=== PATIENT | female | born 1975 | race Caucasian/White ===

== ENCOUNTER 2016-04-30 15:49 | Emergency (ER) | payer OTHER ==
[2016-04-30 16:06] VITALS: RESP 18
[2016-04-30] MEDS ORDERED: METOCLOPRAMIDE 5 MG/ML 2 ML VIAL IVP STA (16:39)
[2016-04-30] MEDS ORDERED: SODIUM CHLORIDE 0.9% 1,000 ML IV STA (16:39)
[2016-04-30] MEDS ORDERED: ACETAMINOPHEN IV (For NPO) 1,000 MG in SALINE 100 100ML.BAG IVPB STA (16:39)
--- NOTE | 2016-04-30 16:41 | ED ---
General Adult HPI - General Chief complaint: Vaginal Bleeding Stated complaint: poss miscarriage/7.5 wks Time Seen by Provider: 04/30/16 16:20 Source: patient, RN notes reviewed Mode of arrival: ambulatory Limitations: no limitations - History of Present Illness Initial comments: Patient is a 40-year-old female who is approximately 7 weeks , who presents emergency room today with a chief complaint of vaginal bleeding that began approximately 3 hours ago. Patient states that she began having some cramping here in the emergency room. Patient admits that she's felt nauseated. She denies any other complaints or associated symptoms. Patient denies any recent fever, chills, shortness of breath, chest pain, back pain, abdominal pain , nausea or vomiting, numbness or tingling, dysuria or hematuria, constipation or diarrhea, headaches or visual changes, or any other complaints. - Related Data Home Medications Medication Instructions Recorded Confirmed glipiZIDE [Glucotrol] 10 mg PO TID 09/01/13 04/30/16 Acetaminophen Tab [Tylenol Tab] 650 mg PO Q4H PRN 04/30/16 04/30/16 Allergies Allergy/AdvReac Type Severity Reaction Status Date / Time clarithromycin [From Biaxin] Allergy Unknown Verified 04/30/16 16:12 Review of Systems ROS Statement: Those systems with pertinent positive or pertinent negative responses have been documented in the HPI. ROS Other: All systems not noted in ROS Statement are negative. Past Medical History Past Medical History: Diabetes Mellitus History of Any Multi-Drug Resistant Organisms: None Reported Past Surgical History: Cholecystectomy Past Psychological History: Anxiety, Bipolar, Depression Smoking Status: Current every day smoker Past Alcohol Use History: None Reported Past Drug Use History: None Reported General Exam - General Exam Comments Initial Comments: General: The patient is awake and alert, in no distress, and does not appear acutely ill. Eye: Pupils are equal, round and reactive to light, extra-ocular movements are intact. No nystagmus. There is normal conjunctiva bilaterally. No signs of icterus. Ears, nose, mouth and throat: There are moist mucous membranes and no oral lesions. Neck: The neck is supple, there is no tenderness or JVD. Cardiovascular: There is a regular rate and rhythm. No murmur, rub or gallop is appreciated. Respiratory: Lungs are clear to auscultation, respirations are non-labored, breath sounds are equal. No wheezes, stridor, rales, or rhonchi. Gastrointestinal: Soft, non-distended, non-tender abdomen without masses or organomegaly noted. There is no rebound or guarding present. No CVA tenderness. Bowel sounds are unremarkable. Musculoskeletal: Normal ROM, no tenderness. Strength 5/5. Sensation intact. Pulses equal bilaterally 2+. Neurological: A&O x 3. CN II-XII intact, There are no obvious motor or sensory deficits. Coordination appears grossly intact. Speech is normal. Skin: Skin is warm and dry and no rashes or lesions are noted. Psychiatric: Cooperative, appropriate mood & affect, normal judgment. Limitations: no limitations Course Vital Signs 04/30/16 16:03 Temperature 98.2 F Pulse Rate 111 H Respiratory 18 Rate Blood Pressure 140/70 O2 Sat by Pulse 98 Oximetry Medical Decision Making - Medical Decision Making Patient reexamined at this time shows no signs acute distress. Her labs been reviewed. Rh+. Beta hCG greater than 13,000. Patient's sugar 202. Is a diabetic. Patient's ultrasound reviewed shows no evidence for IUP or extrauterine gestation at this time. Patient admits that she had a previous ultrasound performed at a clinic that did show IUP approximately 2 weeks ago. Was discussed about possibilities of miscarriage at this time. Was discussed about pelvic exam. Patient is advised to follow up the [facility] over the next 2 days. Advised to return to emergency room if there is any lightheadedness dizziness or increased pain or cramping. Patient will be discharged home with a prescription for repeat beta hCG to be obtained in 2 days. Patient advised return for any other concerns. Patient states understanding and is in agreement. - Lab Data Result diagrams: 04/30/16 16:43 04/30/16 16:43 Lab Results 04/30/16 04/30/16 04/30/16 Range/Units 16:43 16:43 16:43 WBC 11.7 H (3.8-10.6) k/uL RBC 5.88 H (3.80-5.40) m/uL Hgb 16.7 H (11.4-16.0) gm/dL Hct 50.5 H (34.0-46.0) % MCV 85.9 (80.0-100.0) fL MCH 28.3 (25.0-35.0) pg MCHC 33.0 (31.0-37.0) g/dL RDW 12.9 (11.5-15.5) % Plt Count 250 (150-450) k/uL Neutrophils % 64 % Lymphocytes % 24 % Monocytes % 6 % Eosinophils % 4 % Basophils % 2 % Neutrophils # 7.4 (1.3-7.7) k/uL Lymphocytes # 2.8 (1.0-4.8) k/uL Monocytes # 0.7 (0-1.0) k/uL Eosinophils # 0.4 (0-0.7) k/uL Basophils # 0.2 (0-0.2) k/uL Sodium 139 (137-145) mmol/L Potassium 4.5 (3.5-5.1) mmol/L Chloride 102 (98-107) mmol/L Carbon Dioxide 19 L (22-30) mmol/L Anion Gap 18 mmol/L BUN 20 H (7-17) mg/dL Creatinine 0.50 L (0.52-1.04) mg/dL Est GFR (MDRD) Af Amer >60 (>60 ml/min/1.73 sqM) Est GFR (MDRD) Non-Af >60 (>60 ml/min/1.73 sqM) Glucose 202 H (74-99) mg/dL Calcium 9.5 (8.4-10.2) mg/dL Total Bilirubin 0.7 (0.2-1.3) mg/dL AST 31 (14-36) U/L ALT 49 (9-52) U/L Alkaline Phosphatase 97 (38-126) U/L Total Protein 8.0 (6.3-8.2) g/dL Albumin 4.5 (3.5-5.0) g/dL HCG, Quant 29555.6 mIU/mL Urine Color Urine Appearance (Clear) Urine pH (5.0-8.0) Ur Specific [place] (1.001-1.035) Urine Protein (Negative) Urine Glucose (UA) (Negative) Urine Ketones (Negative) Urine Blood (Negative) Urine Nitrate (Negative) Urine Bilirubin (Negative) Urine Urobilinogen (<2.0) mg/dL Ur Leukocyte Esterase (Negative) Urine RBC (0-5) /hpf Urine WBC (0-5) /hpf Ur Squamous Epith Cells (0-4) /hpf Urine Bacteria (None) /hpf Blood Type O Positive Blood Type Recheck No 04/30/16 Range/Units 16:43 WBC (3.8-10.6) k/uL RBC (3.80-5.40) m/uL Hgb (11.4-16.0) gm/dL Hct (34.0-46.0) % MCV (80.0-100.0) fL MCH (25.0-35.0) pg MCHC (31.0-37.0) g/dL RDW (11.5-15.5) % Plt Count (150-450) k/uL Neutrophils % % Lymphocytes % % Monocytes % % Eosinophils % % Basophils % % Neutrophils # (1.3-7.7) k/uL Lymphocytes # (1.0-4.8) k/uL Monocytes # (0-1.0) k/uL Eosinophils # (0-0.7) k/uL Basophils # (0-0.2) k/uL Sodium (137-145) mmol/L Potassium (3.5-5.1) mmol/L Chloride (98-107) mmol/L Carbon Dioxide (22-30) mmol/L Anion Gap mmol/L BUN (7-17) mg/dL Creatinine (0.52-1.04) mg/dL Est GFR (MDRD) Af Amer (>60 ml/min/1.73 sqM) Est GFR (MDRD) Non-Af (>60 ml/min/1.73 sqM) Glucose (74-99) mg/dL Calcium (8.4-10.2) mg/dL Total Bilirubin (0.2-1.3) mg/dL AST (14-36) U/L ALT (9-52) U/L Alkaline Phosphatase (38-126) U/L Total Protein (6.3-8.2) g/dL Albumin (3.5-5.0) g/dL HCG, Quant mIU/mL Urine Color Light Yellow Urine Appearance Clear (Clear) Urine pH 6.0 (5.0-8.0) Ur Specific [place] 1.004 (1.001-1.035) Urine Protein Trace H (Negative) Urine Glucose (UA) Negative (Negative) Urine Ketones Negative (Negative) Urine Blood Large H (Negative) Urine Nitrate Negative (Negative) Urine Bilirubin Negative (Negative) Urine Urobilinogen <2.0 (<2.0) mg/dL Ur Leukocyte Esterase Negative (Negative) Urine RBC 13 H (0-5) /hpf Urine WBC 2 (0-5) /hpf Ur Squamous Epith Cells <1 (0-4) /hpf Urine Bacteria Rare H (None) /hpf Blood Type Blood Type Recheck Disposition Clinical Impression: Threatened Disposition: HOME SELF-CARE Condition: Good Instructions: Threatened Miscarriage (ED) Additional Instructions: Please follow-up with [facility] over the next 1-2 days. Please have repeat lab in 2 days as discussed. Please return to emergency room if the symptoms increase or worsen or for any other concerns. Referrals: Mateus Curtis DO [Primary Care Provider] - 1-2 days Time of Disposition: 18:40
[2016-04-30 16:57] LABS: Basophils # (A) 0.2 k/uL (0-0.2); Basophils % (A) 2 %; CH 30.1; CHCM 35.2; Eosinophils # (A) 0.4 k/uL (0-0.7); Eosinophils % (A) 4 %; HCT 50.5 % (34.0-46.0); HDW 2.56; HGB 16.7 gm/dL (11.4-16.0); Luc # (Auto) 0.15; Luc % (Auto) 1; Lymphocytes # (A) 2.8 k/uL (1.0-4.8); Lymphocytes % (A) 24 %; MCH 28.3 pg (25.0-35.0); MCV 85.9 fL (80.0-100.0); Mean Platelet Volume 7.7; Monocytes # (A) 0.7 k/uL (0-1.0); Monocytes % (A) 6 %; Neutrophils # (A) 7.4 k/uL (1.3-7.7); Neutrophils % (A) 64 %; RBC 5.88 m/uL (3.80-5.40); RDW 12.9 % (11.5-15.5); WBC 11.7 k/uL (3.8-10.6); WBC (Perox) 12.13
[2016-04-30 17:06] LABS: Appearance,Urine Clear (Clear); Bacteria,Urine Rare /hpf; Bilirubin,Urine Negative (Negative); Glucose,Urine (UA) Negative (Negative); Ketones,Urine Negative (Negative); Leukocyte Esterase,Urine Negative (Negative); Nitrite,Urine Negative (Negative); Particle Count 1895; Protein,Urine Trace (Negative); RBC,Urine 13 /hpf (0-5); Specific Gravity,Urine 1.004 (1.001-1.035); Squamous Epithelial Cell,Urine <1 /hpf (0-4); UA Billing (MACRO vs. MICRO) MICRO; Urobilinogen,Urine <2.0 mg/dL (<2.0); WBC,Urine 2 /hpf (0-5)
[2016-04-30 17:08] LABS: ALT 49 U/L (9-52); AST 31 U/L (14-36); Alkaline Phosphatase 97 U/L (38-126); Anion Gap 18 mmol/L; Blood Urea Nitrogen 20 mg/dL (7-17); Calcium 9.5 mg/dL (8.4-10.2); Carbon Dioxide 19 mmol/L (22-30); Chloride 102 mmol/L (98-107); Glucose 202 mg/dL (74-99); Non-African American GFR(MDRD) >60 (>60 ml/min/1.73 sqM); Potassium 4.5 mmol/L (3.5-5.1); Sodium 139 mmol/L (137-145); Total Bilirubin 0.7 mg/dL (0.2-1.3)
[2016-04-30 17:22] LABS: HCG,Quantitative Serum 13560.6 mIU/mL
--- NOTE | 2016-04-30 18:15 | US ---
EXAMINATION TYPE: US OB <=14 wks transvag DATE OF EXAM: 04/30/2016 5:58 PM COMPARISON: NONE CLINICAL HISTORY: Pain. Bleeding. Patient states she had an early ultrasound at another facility EXAM PERFORMED: US OB <=14 wks transvag EXAM MEASUREMENTS: GESTATIONAL AGE / DATING Physician Established: Not established Dates by LMP: Unknown Dates by First Scan: No previous at this facility Dates by Current Scan for: No IUP visualized MATERNAL ANATOMY Uterus: 9.6 x 4.7 x 5.9 cm Right Ovary: Not visualized on this exam due to large amount of overlying bowel gas. Attempted multip le times to visualize, and patient asked exam due end due to pain. Left Ovary: 2.0 x 1.6 x 1.8 cm Post CDS / Adnexa: Large amount of overlying bowel gas visualized Presence of free fluid: No Presence of corpus luteal cyst: Not visualized on this exam Presence of subchorionic bleed: No Date of LMP: Unknown Beta HcG (if available): 13,560 TECHNOLOGIST IMPRESSION: No IUP visualized on this exam. The endometrium appears thickened and heter ogeneous. There is an anechoic area visualized within the cervix, possible nabothian cyst IMPRESSION: 1. We have not identified intrauterine or extrauterine gestation at this time. Short-term follow-up + /- elevated hCGs would be suggested. 2. Complex nabothian cyst in the posterior lip of the cervix.
[2016-04-30 18:58] VITALS: BP 151/82; PULSE 94; TEMP 97
== END 2016-04-30 18:58 | disposition home or self-care (01) ==
LOC: EC 15:49
DX: O20.0 Threatened abortion (principal); Z3A.01 Less than 8 weeks gestation of pregnancy; E11.9 Type 2 diabetes mellitus without complications; Z79.84 Long term (current) use of oral hypoglycemic drugs; Z88.1 Allergy status to other antibiotic agents; O99.331 Smoking (tobacco) complicating pregnancy, first trimester
CPT/HCPCS: 96374; 99284; 36415; 86900; 86901; 80053; 85025; 81001; 84702; 76801; 76817; J2765; J0131

== ENCOUNTER 2016-05-01 07:47 | Inpatient (IN) | payer OTHER ==
--- NOTE | 2016-05-01 08:54 | ED ---
Female Urogenital HPI - General Chief complaint: Vaginal Bleeding Stated complaint: BLEEDING POSS MISCARRAGE Time Seen by Provider: 05/01/16 08:29 Source: patient, RN notes reviewed Mode of arrival: wheelchair Limitations: no limitations - History of Present Illness Initial comments: This is a 40-year-old female presents emergency Department chief complaint lower abdominal pain, vaginal bleeding. Patient states she was seen here yesterday for similar symptoms. Patient states that she is . Patient states that she would be 7 weeks 4 days. Patient is A0. Patient does not have a current [employer] 1 [employer] 5 TE[employer]. Patient states that she is passing large clots and increased bleeding. Patient had an ultrasound yesterday which showed no IUP but a beta Quant of greater than 13,000. Patient did not have a pelvic exam. Patient denies any vomiting, diarrhea Justin patient. She did admit to some nausea. Denies fever or chills. - Related Data Home Medications Medication Instructions Recorded Confirmed glipiZIDE [Glucotrol] 10 mg PO TID 09/01/13 05/01/16 Acetaminophen Tab [Tylenol Tab] 650 mg PO Q4H PRN 04/30/16 05/01/16 Citalopram Hydrobromide 20 mg PO DAILY 05/01/16 05/01/16 [Citalopram HBr] Allergies Allergy/AdvReac Type Severity Reaction Status Date / Time clarithromycin [From Biaxin] Allergy Unknown Verified 05/01/16 08:04 Review of Systems ROS Statement: Those systems with pertinent positive or pertinent negative responses have been documented in the HPI. ROS Other: All systems not noted in ROS Statement are negative. Past Medical History Past Medical History: Diabetes Mellitus History of Any Multi-Drug Resistant Organisms: None Reported Past Surgical History: Cholecystectomy Past Psychological History: Anxiety, Bipolar, Depression Smoking Status: Current every day smoker Past Alcohol Use History: None Reported Past Drug Use History: None Reported General Exam Limitations: no limitations General appearance: alert, in no apparent distress Head exam: Present: atraumatic, normocephalic, normal inspection Respiratory exam: Present: normal lung sounds bilaterally. Absent: respiratory distress, wheezes, rales, rhonchi, stridor Cardiovascular Exam: Present: regular rate, normal rhythm, normal heart sounds. Absent: systolic murmur, diastolic murmur, rubs, gallop, clicks GI/Abdominal exam: Present: soft, tenderness (Mild lower abdominal tenderness), normal bowel sounds. Absent: distended, guarding, rebound, rigid Back exam: Absent: CVA tenderness (R), CVA tenderness (L) Skin exam: Present: warm, dry, intact, normal color. Absent: rash Course Vital Signs 05/01/16 05/01/16 07:54 11:51 Temperature 97.5 F L 98.9 F Pulse Rate 84 119 H Respiratory 20 16 Rate Blood Pressure 123/56 108/58 O2 Sat by Pulse 99 95 Oximetry Medical Decision Making - Lab Data Result diagrams: 05/01/16 09:00 05/01/16 11:11 Lab Results 05/01/16 05/01/16 05/01/16 Range/Units 09:00 09:00 09:00 WBC 17.2 H (3.8-10.6) k/uL RBC 4.47 (3.80-5.40) m/uL Hgb 13.1 D (11.4-16.0) gm/dL Hct 38.5 (34.0-46.0) % MCV 86.2 (80.0-100.0) fL MCH 29.2 (25.0-35.0) pg MCHC 33.9 (31.0-37.0) g/dL RDW 13.0 (11.5-15.5) % Plt Count 304 (150-450) k/uL Neutrophils % 78 % Lymphocytes % 14 % Monocytes % 5 % Eosinophils % 1 % Basophils % 1 % Neutrophils # 13.4 H (1.3-7.7) k/uL Lymphocytes # 2.5 (1.0-4.8) k/uL Monocytes # 0.8 (0-1.0) k/uL Eosinophils # 0.2 (0-0.7) k/uL Basophils # 0.1 (0-0.2) k/uL PT 10.3 (9.0-12.0) sec INR 1.0 (<1.1) APTT 21.0 L (22.0-30.0) sec Sodium 134 L (137-145) mmol/L Potassium 5.7 H (3.5-5.1) mmol/L Chloride 102 (98-107) mmol/L Carbon Dioxide 14 L (22-30) mmol/L Anion Gap 18 mmol/L BUN 19 H (7-17) mg/dL Creatinine 0.52 (0.52-1.04) mg/dL Est GFR (MDRD) Af Amer >60 (>60 ml/min/1.73 sqM) Est GFR (MDRD) Non-Af >60 (>60 ml/min/1.73 sqM) Glucose 462 H* (74-99) mg/dL POC Glucose (mg/dL) (75-99) mg/dL POC Glu Production Weigher ID Calcium 8.7 (8.4-10.2) mg/dL HCG, Quant 4730.9 mIU/mL Urine Color Urine Appearance (Clear) Urine pH (5.0-8.0) Ur Specific [place] (1.001-1.035) Urine Protein (Negative) Urine Glucose (UA) (Negative) Urine Ketones (Negative) Urine Blood (Negative) Urine Nitrate (Negative) Urine Bilirubin (Negative) Urine Urobilinogen (<2.0) mg/dL Ur Leukocyte Esterase (Negative) Urine RBC (0-5) /hpf Urine WBC (0-5) /hpf Ur Squamous Epith Cells (0-4) /hpf Hyaline Casts (0-2) /lpf Acetone, Qual (Negative) 05/01/16 05/01/16 05/01/16 Range/Units 10:30 11:11 11:11 WBC (3.8-10.6) k/uL RBC (3.80-5.40) m/uL Hgb (11.4-16.0) gm/dL Hct (34.0-46.0) % MCV (80.0-100.0) fL MCH (25.0-35.0) pg MCHC (31.0-37.0) g/dL RDW (11.5-15.5) % Plt Count (150-450) k/uL Neutrophils % % Lymphocytes % % Monocytes % % Eosinophils % % Basophils % % Neutrophils # (1.3-7.7) k/uL Lymphocytes # (1.0-4.8) k/uL Monocytes # (0-1.0) k/uL Eosinophils # (0-0.7) k/uL Basophils # (0-0.2) k/uL PT (9.0-12.0) sec INR (<1.1) APTT (22.0-30.0) sec Sodium 135 L (137-145) mmol/L Potassium 5.3 H (3.5-5.1) mmol/L Chloride 106 (98-107) mmol/L Carbon Dioxide 13 L (22-30) mmol/L Anion Gap 16 mmol/L BUN 18 H (7-17) mg/dL Creatinine 0.50 L (0.52-1.04) mg/dL Est GFR (MDRD) Af Amer >60 (>60 ml/min/1.73 sqM) Est GFR (MDRD) Non-Af >60 (>60 ml/min/1.73 sqM) Glucose 365 H (74-99) mg/dL POC Glucose (mg/dL) 394 H (75-99) mg/dL POC Glu Production Weigher ID Angelica Handy Calcium 8.0 L (8.4-10.2) mg/dL HCG, Quant mIU/mL Urine Color Light Yellow Urine Appearance Clear (Clear) Urine pH 5.5 (5.0-8.0) Ur Specific [place] 1.021 (1.001-1.035) Urine Protein Negative (Negative) Urine Glucose (UA) 4+ H (Negative) Urine Ketones 2+ H (Negative) Urine Blood Trace H (Negative) Urine Nitrate Negative (Negative) Urine Bilirubin Negative (Negative) Urine Urobilinogen <2.0 (<2.0) mg/dL Ur Leukocyte Esterase Negative (Negative) Urine RBC <1 (0-5) /hpf Urine WBC 1 (0-5) /hpf Ur Squamous Epith Cells 1 (0-4) /hpf Hyaline Casts 1 (0-2) /lpf Acetone, Qual Positive (Negative) Disposition Clinical Impression: DKA (diabetic ketoacidosis), Spontaneous miscarriage Disposition: ADMITTED IP TO THIS HOSP
[2016-05-01 09:21] LABS: Anion Gap 18 mmol/L; Blood Urea Nitrogen 19 mg/dL (7-17); Calcium 8.7 mg/dL (8.4-10.2); Carbon Dioxide 14 mmol/L (22-30); Chloride 102 mmol/L (98-107); Non-African American GFR(MDRD) >60 (>60 ml/min/1.73 sqM); Potassium 5.7 mmol/L (3.5-5.1); Sodium 134 mmol/L (137-145)
[2016-05-01 09:26] LABS: Basophils # (A) 0.1 k/uL (0-0.2); Basophils % (A) 1 %; CH 29.7; CHCM 34.6; Eosinophils # (A) 0.2 k/uL (0-0.7); Eosinophils % (A) 1 %; HCT 38.5 % (34.0-46.0); HDW 2.69; Luc # (Auto) 0.17; Luc % (Auto) 1; Lymphocytes # (A) 2.5 k/uL (1.0-4.8); Lymphocytes % (A) 14 %; MCH 29.2 pg (25.0-35.0); MCHC 33.9 g/dL (31.0-37.0); MCV 86.2 fL (80.0-100.0); Mean Platelet Volume 8.5; Monocytes # (A) 0.8 k/uL (0-1.0); Monocytes % (A) 5 %; Neutrophils # (A) 13.4 k/uL (1.3-7.7); Neutrophils % (A) 78 %; RBC 4.47 m/uL (3.80-5.40); WBC 17.2 k/uL (3.8-10.6)
[2016-05-01 09:29] LABS: HGB 13.1 gm/dL (11.4-16.0); Prothrombin Time 10.3 sec (9.0-12.0)
[2016-05-01 09:32] LABS: Glucose 462 mg/dL (74-99)
[2016-05-01 09:38] LABS: HCG,Quantitative Serum 4730.9 mIU/mL
[2016-05-01] MEDS ORDERED: SODIUM CHLORIDE 0.9% 1,000 ML IV ONE ×2 (09:40→10:45)
[2016-05-01 10:58] LABS: Appearance,Urine Clear (Clear); Bilirubin,Urine Negative (Negative); Glucose,Urine (UA) 4+ (Negative); Leukocyte Esterase,Urine Negative (Negative); Nitrite,Urine Negative (Negative); PH, Urine 5.5 (5.0-8.0); Particle Count 2438; Protein,Urine Negative (Negative); RBC,Urine <1 /hpf (0-5); Specific Gravity,Urine 1.021 (1.001-1.035); Squamous Epithelial Cell,Urine 1 /hpf (0-4); UA Billing (MACRO vs. MICRO) MICRO; Urobilinogen,Urine <2.0 mg/dL (<2.0); WBC,Urine 1 /hpf (0-5)
[2016-05-01 11:10] LABS: Ketones,Urine 2+ (Negative)
[2016-05-01 11:12] LABS: Glucose,Whole Blood 394 mg/dL (75-99)
[2016-05-01] MEDS ORDERED: INSULIN REGULAR 100 UNIT/ML VIAL IV ONE (11:18)
[2016-05-01 11:55] LABS: Anion Gap 16 mmol/L; Blood Urea Nitrogen 18 mg/dL (7-17); Carbon Dioxide 13 mmol/L (22-30); Chloride 106 mmol/L (98-107); Glucose 365 mg/dL (74-99); Non-African American GFR(MDRD) >60 (>60 ml/min/1.73 sqM); Potassium 5.3 mmol/L (3.5-5.1); Sodium 135 mmol/L (137-145)
[2016-05-01 12:38] LABS: Glucose,Whole Blood 347 mg/dL (75-99)
[2016-05-01] MEDS: SODIUM CHLORIDE 0.9% 1,000 ML IV SCH ×2 (12:43→16:51)
[2016-05-01] MEDS: INSULIN REGULAR 100 UNIT in SODIUM CHLORIDE 0.9% 100 ML IV SCH ×3 (12:43→23:15)
[2016-05-01 13:54] LABS: Hemoglobin A1C 10.1 % (4.2-6.1)
[2016-05-01 14:01] LABS: Glucose,Whole Blood 227 mg/dL (75-99)
[2016-05-01 15:32] LABS: Glucose,Whole Blood 143 mg/dL (75-99)
[2016-05-01 16:32] LABS: Glucose,Whole Blood 111 mg/dL (75-99)
[2016-05-01] MEDS: D5-0.45% NACL WITH KCL 20MEQ/L 1,000 ML IV SCH ×2 (16:50→21:24)
[2016-05-01 17:12] LABS: Glucose,Whole Blood 128 mg/dL (75-99)
[2016-05-01 17:39] LABS: Anion Gap 13 mmol/L; Blood Urea Nitrogen 12 mg/dL (7-17); Calcium 8.3 mg/dL (8.4-10.2); Carbon Dioxide 17 mmol/L (22-30); Chloride 107 mmol/L (98-107); Glucose 111 mg/dL (74-99); Non-African American GFR(MDRD) >60 (>60 ml/min/1.73 sqM); Phosphorous 3.5 mg/dL (2.5-4.5); Potassium 4.4 mmol/L (3.5-5.1); Sodium 137 mmol/L (137-145)
[2016-05-01] MEDS ORDERED: HYDROmorphone 1 MG/ML 1 ML SYRINGE IVP PRN (18:10)
[2016-05-01] MEDS ORDERED: ACETAMINOPHEN TAB 500 MG TAB PO PRN (18:10)
[2016-05-01 18:16] LABS: Glucose,Whole Blood 159 mg/dL (75-99)
[2016-05-01 18:58] LABS: Glucose,Whole Blood 242 mg/dL (75-99)
[2016-05-01 20:11] LABS: Glucose,Whole Blood 293 mg/dL (75-99)
[2016-05-01] MEDS ORDERED: INSULIN DETEMIR 100 UNIT/ML 10 ML VIAL SQ SCH (21:00)
[2016-05-01 21:19] LABS: Basophils # (A) 0.1 k/uL (0-0.2); Basophils % (A) 1 %; CH 29.5; CHCM 33.5; Eosinophils # (A) 0.3 k/uL (0-0.7); Eosinophils % (A) 2 %; HDW 2.57; Luc # (Auto) 0.25; Luc % (Auto) 2; Lymphocytes # (A) 2.7 k/uL (1.0-4.8); Lymphocytes % (A) 22 %; MCH 29.6 pg (25.0-35.0); MCHC 33.5 g/dL (31.0-37.0); MCV 88.4 fL (80.0-100.0); Mean Platelet Volume 7.2; Monocytes # (A) 0.8 k/uL (0-1.0); Monocytes % (A) 6 %; Neutrophils # (A) 8.4 k/uL (1.3-7.7); Neutrophils % (A) 68 %; RBC 3.28 m/uL (3.80-5.40); RDW 13.1 % (11.5-15.5); WBC 12.4 k/uL (3.8-10.6); WBC (Perox) 13.23
[2016-05-01 21:22] LABS: Glucose,Whole Blood 320 mg/dL (75-99)
[2016-05-01 21:35] LABS: HGB 9.7 gm/dL (11.4-16.0)
[2016-05-01 21:37] LABS: Anion Gap 13 mmol/L; Blood Urea Nitrogen 11 mg/dL (7-17); Carbon Dioxide 15 mmol/L (22-30); Chloride 106 mmol/L (98-107); Glucose 265 mg/dL (74-99); Magnesium 1.3 mg/dL (1.6-2.3); Non-African American GFR(MDRD) >60 (>60 ml/min/1.73 sqM); Phosphorous 3.5 mg/dL (2.5-4.5); Potassium 4.4 mmol/L (3.5-5.1); Sodium 134 mmol/L (137-145)
[2016-05-01] MEDS ORDERED: glipiZIDE 10 MG TAB PO SCH (22:00)
[2016-05-01] MEDS ORDERED: Magnesium Replacement Protocol 1 EACH MISC MISCELLANE PRN (22:12)
[2016-05-01] MEDS ORDERED: Potassium Replacement Protocol 1 EACH MISC MISCELLANE PRN (22:22)
[2016-05-01 22:27] LABS: Glucose,Whole Blood 325 mg/dL (75-99)
[2016-05-01] MEDS: ACETAMINOPHEN TAB 325 MG TAB PO PRN (22:36)
[2016-05-01] MEDS: MAGNESIUM SULFATE-D5W PMX 1 GM in DEXTROSE/WATER 1 100ML.BAG IVPB SCH ×2 (22:36→23:23)
[2016-05-01 23:15] LABS: Glucose,Whole Blood 261 mg/dL (75-99)
--- NOTE | 2016-05-02 00:07 | P.HPIM ---
History of Present Illness H&P Date: 05/01/16 Chief Complaint: DKA, spontaneous miscarriage, manic depression, edema, smoking , GERD 40-year-old female one of Dr. Curtis patient with past medical history of obesity, manic depression, diabetes, chronic history of back pain history of anemia and kidney stone who has history of asthma as well who was in the emergency department apparently yesterday with vaginal bleed was diagnosed as a spontaneous miscarriage was treated and sent home. Patient presented to the emergency department at [facility] again complaining of worsening vaginal bleed with not feeling well including increased polydipsia polyuria with significantly abnormal elevated blood sugar and increased lower back pain. Patient was seen and evaluated surprisingly looks in active spontaneous miscarriage. Also her acetone level came back elevated blood sugar running in the high 400, patient was diagnosed with DKA. Was started on DKA protocol continue hydration along with insulin drip. Patient will be hospitalized with the above problem she has been on oral hypoglycemic agent up till now with A1c running about 10 patient will be converted to insulin was started on Lantus tonight by tomorrow morning will be started on NovoLog before meals meals and sliding scales beside the Lantus at nighttime. Also will consult [employer] for her spontaneous miscarriage patient might need to go for D&C. Review of Systems Constitutional: Reports chronic pain, Reports fatigue, Reports lethargy, Reports weakness, Reports weight gain, Denies as per HPI, Denies anorexia, Denies chills, Denies chronic headaches, Denies daytime sleepiness, Denies fever , Denies malaise, Denies night sweats, Denies poor appetite, Denies sweats, Denies weight loss Eyes: bilateral as per HPI Ears: bilateral: decreased hearing Ears, nose, mouth and throat: Reports nasal discharge, Reports sinus pain, Reports sinus pressure, Denies as per HPI, Denies ant. neck pain, Denies bleeding gums, Denies dental pain, Denies dysphagia, Denies epistaxis, Denies headache, Denies hoarseness, Denies mouth pain, Denies nasal congestion, Denies neck fullness/pressure, Denies neck lump, Denies nose pain, Denies odynophagia, Denies post-nasal drip, Denies swelling in mouth, Denies swelling in throat, Denies sore throat, Denies vertigo, Denies voice changes Cardiovascular: Reports edema, Reports orthopnea, Denies as per HPI, Denies chest pain, Denies claudication, Denies decreased exercise tolerance, Denies dyspnea on exertion, Denies high blood pressure, Denies irregular heart beat, Denies leg edema, Denies lightheadedness, Denies palpitations, Denies paroxysmal nocturnal dyspnea, Denies phlebitis, Denies rapid heart beat, Denies shortness of breath, Denies syncope Respiratory: Reports congestion, Reports cough, Reports dyspnea, Reports snoring , Denies as per HPI, Denies cough with sputum, Denies excessive sputum, Denies hemoptysis, Denies home oxygen, Denies pain, Denies pain on inspiration, Denies pleurisy, Denies respiratory infections, Denies sleep apnea, Denies wheezing Gastrointestinal: Reports abdominal pain, Reports bloating, Reports constipation , Reports dyspepsia, Reports early satiety, Reports indigestion, Reports loss of appetite, Reports melena, Denies as per HPI, Denies belching, Denies BRBPR, Denies change in bowel habits, Denies coffee ground emesis, Denies diarrhea, Denies excessive gas, Denies heartburn, Denies hematemesis, Denies hematochezia , Denies jaundice, Denies lactose intolerance, Denies nausea, Denies vomiting Genitourinary: Reports abnormal vaginal bleeding, Reports dysuria, Reports nocturia, Reports pelvic pain, Reports stress incontinence, Reports urgency, Reports urinary frequency, Denies as per HPI, Denies decreased libido, Denies difficulty conceiving, Denies difficulty voiding, Denies dysmenorrhea, Denies dyspareunia, Denies flank pain, Denies genital sores, Denies hematuria, Denies hot flashes, Denies incomplete emptying, Denies kidney stones, Denies menorrhagia, Denies mixed incontinence, Denies post void dribbling, Denies , Denies prolapse symptoms, Denies urge incontinence, Denies vaginal discharge, Denies vaginal dryness, Denies vaginal itching, Denies vaginal odor Musculoskeletal: Reports arm numbness/tingling, Reports frequent falls, Reports muscle cramps, Reports myalgias, Reports neck pain, Reports neck stiffness, Denies as per HPI, Denies atrophy, Denies fractures, Denies gait dysfunction, Denies hot joints, Denies leg numbness/tingling, Denies limitation of motion, Denies loss of height, Denies low back pain, Denies morning stiffness, Denies muscle weakness, Denies prior amputations, Denies redness of joints, Denies shooting arm pain, Denies shooting leg pain Musculoskeletal: bilateral: ankle pain, ankle stiffness, ankle swelling Integumentary: Reports rash, Reports sores, Denies as per HPI, Denies acne, Denies boils, Denies brittle nails, Denies change in hair/nails, Denies color changes, Denies darkening of skin, Denies depigmentation, Denies dryness, Denies foot/leg ulcers, Denies growths, Denies hirsutism, Denies lesions, Denies onychomycosis, Denies pruritus, Denies striae, Denies unusual bruising, Denies wounds Neurological: Reports ataxia, Reports balance difficulties, Reports numbness, Reports paresthesias, Reports tingling, Reports tremors, Reports vertigo, Reports weakness, Denies as per HPI, Denies aphasia, Denies burning pain, Denies change in mentation, Denies change in smell/taste, Denies change in speech, Denies confusion, Denies convulsions, Denies double vision, Denies gait dysfunction, Denies head injury, Denies headaches, Denies hearing difficulties, Denies lack of coordination, Denies loss of vision, Denies memory loss, Denies migraines, Denies motor disturbance, Denies paralysis, Denies seizures, Denies sensory deficit, Denies spasticity, Denies syncope, Denies tic, Denies transient paralysis, Denies visual changes Psychiatric: Reports anhedonia, Reports anxiety, Reports anxiety attacks, Reports depression, Reports mood swings, Reports sadness/tearfulness, Denies as per HPI, Denies change in appetite, Denies change in libido, Denies change in sleep habits, Denies confusion, Denies difficulty concentrating, Denies disorientation, Denies hallucinations, Denies hopelessness, Denies hypersomnia, Denies insomnia, Denies irritability, Denies memory loss, Denies paranoia, Denies sleep disturbances, Denies suicidal ideation Endocrine: Reports cold intolerance, Reports excessive sweating, Reports excessive thirst, Reports fatigue, Reports nocturia, Reports polyphagia, Reports polyuria, Denies as per HPI, Denies deepening of the voice, Denies flushing, Denies heat intolerance, Denies high blood sugars, Denies increase in ring/shoe/hat size, Denies low blood sugars, Denies palpitations, Denies polydipsia, Denies proptosis, Denies recent glucocorticoid use, Denies thyroid mass, Denies weight change Hematologic/Lymphatic: Reports easy bruising, Denies as per HPI, Denies easy bleeding, Denies lymphadenopathy, Denies lymphedema, Denies thrombophilia Allergic/Immunologic: Denies as per HPI, Denies allergic rhinitis, Denies anaphylaxis, Denies angioedema, Denies gluten intolerance, Denies persistent infections, Denies seasonal allergies, Denies urticaria, Denies wheezing Past Medical History Past Medical History: Diabetes Mellitus, Pneumonia Additional Past Medical History / Comment(s): BRONCHITIS, KIDNEY STONES,UTI, ANXIETY ,BIPOLAR DEPRESSION History of Any Multi-Drug Resistant Organisms: None Reported Past Surgical History: Cholecystectomy Additional Past Surgical History / Comment(s): PAST MED HX LISTED CERCLAGE PROCEDURE X2 Past Anesthesia/Blood Transfusion Reactions: Postoperative Nausea & Vomiting ( PONV) Past Psychological History: Anxiety, Bipolar, Depression Additional Psychological History / Comment(s): PT STATED HAS'NT BEEN ON HER MEDS SINCE SHE HAS BEEN . AT TIME OF ADMIT DENIES ANY THOUGHTS OF HARMING SELF, NO SUICIDAL IDEATION. 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 Past Drug Use History: None Reported - Past Family History Mother Family Medical History: Congestive Heart Failure (CHF), Diabetes Mellitus, Hyperlipidemia, Hypertension Additional Family Medical History / Comment(s): KIDNEY FAILURE Father Family Medical History: Diabetes Mellitus Additional Family Medical History / Comment(s): COLLAPSED LUNG Medications and Allergies Home Medications Medication Instructions Recorded Confirmed Type Acetaminophen Tab [Tylenol] 650 mg PO Q4H PRN 04/30/16 05/01/16 History Citalopram Hydrobromide 20 mg PO DAILY 05/01/16 05/01/16 History [Citalopram HBr] Allergies Allergy/AdvReac Type Severity Reaction Status Date / Time clarithromycin [From Biaxin] Allergy Unknown Verified 05/01/16 08:04 BBE STINGS Allergy Unknown Uncoded 05/01/16 18:09 MACULIDE Allergy Unknown Uncoded 05/01/16 18:08 Physical Exam Vitals: Vital Signs Temp Pulse Pulse Resp BP BP Pulse Ox 05/01/16 16:58 97.1 F L 117 H 20 132/84 97 05/01/16 14:37 97.9 F 121 H 20 119/60 96 05/01/16 13:09 122 H 16 126/63 100 05/01/16 12:39 117 H 16 117/60 100 Intake and Output 05/01/16 05/01/16 05/01/16 06:59 14:59 22:59 Intake Total 26.628 Balance 26.628 Intake: Intake, IV Titration 26.628 Amount Insulin Regular 100 unit 26.628 In Sodium Chloride 0.9% 100 ml @ 0.1 UNITS/KG/HR 8.93 mls/hr IV .[id number] [facility] Rx#:[id number] Other: Voiding Method Toilet - Constitutional General appearance: no average body habitus, no cooperative, disheveled, no mild distress, no morbidly obese, no acute distress, obese, no severe distress, no thin - EENT Eyes: no abnormal pupil, no anicteric sclerae, no disc margins sharp, no edentulous, no EOMI, no PERRLA, no fundus normal, no photophobia, no dentition normal, no poor dentition, no ptosis, scleral icterus, normal appearance ENT: hard of hearing, no hearing grossly normal, no NA/AT, no normal oropharynx , other, no pharyngeal erythema, no thrush, no tonsillar exudates, no tonsillar swelling Ears: bilateral: normal, bulging - Neck Neck: no lymphadenopathy, normal ROM, no other, no rigidity, no stridor, no thyromegaly Carotids: bilateral: upstroke normal, upstroke delayed Thyroid: bilateral: normal size - Respiratory Respiratory: bilateral: CTA, diminished, dullness - Cardiovascular Rhythm: regular Heart sounds: normal: S1, S2 Abnormal Heart Sounds: systolic murmur, S3 Gallop - Gastrointestinal General gastrointestinal: no absent bowel sounds, decreased bowel sounds, no distended, no hepatomegaly, no hyperactive bowel sounds, normal bowel sounds, no organomegaly, no rigid, scaphoid, no soft, no splenomegaly, tenderness, no umbilical hernia, no ventral hernia - Genitourinary Female genitourinary: cystocele - Integumentary Integumentary: no calor, no cellulitis, no cyanotic, no decreased turgor, flushed, jaundiced, normal, no normal turgor, pale, rash, no ulcer - Neurologic Neurologic: CNII-XII intact - Musculoskeletal Musculoskeletal: gait normal, generalized weakness - Psychiatric Psychiatric: A&O x's 3, appropriate affect, intact judgment & insight Results CBC & Chem 7: 05/02/16 11:16 05/02/16 11:16 Labs: Abnormal Lab Results - Last 24 Hours (Table) 05/01/16 05/01/16 05/01/16 Range/Units 12:36 13:20 13:59 Carbon Dioxide (22-30) mmol/L Creatinine (0.52-1.04) mg/dL Glucose (74-99) mg/dL POC Glucose (mg/dL) 347 H 227 H (75-99) mg/dL Hemoglobin A1c 10.1 H (4.2-6.1) % Calcium (8.4-10.2) mg/dL 05/01/16 05/01/16 05/01/16 Range/Units 15:30 16:31 16:53 Carbon Dioxide 17 L (22-30) mmol/L Creatinine 0.44 L (0.52-1.04) mg/dL Glucose 111 H (74-99) mg/dL POC Glucose (mg/dL) 143 H 111 H (75-99) mg/dL Hemoglobin A1c (4.2-6.1) % Calcium 8.3 L (8.4-10.2) mg/dL 05/01/16 05/01/16 05/01/16 Range/Units 17:10 18:03 18:56 Carbon Dioxide (22-30) mmol/L Creatinine (0.52-1.04) mg/dL Glucose (74-99) mg/dL POC Glucose (mg/dL) 128 H 159 H 242 H (75-99) mg/dL Hemoglobin A1c (4.2-6.1) % Calcium (8.4-10.2) mg/dL Thrombosis Risk Factor Assmnt - DVT/VTE Prophylaxis DVT/VTE Prophylaxis: Pharmacologic Prophylaxis ordered, Mechanical Prophylaxis ordered Assessment and Plan Plan: 1 DKA: Patient was started on insulin drip, hydration and electrolyte correction. We'll start patient on long-acting insulin tonight with Lantus up to 20 units continue oral hypoglycemic agent will add by tomorrow morning short acting insulin with NovoLog before meals meals along with sliding scales beside titrating the Lantus. 2 spontaneous miscarriage: Will refer patient to [facility] [employer] patient might need to go for D&C as well. 3 elevated blood pressure: Stable so far if can tolerate small dose of LUCY inhibitor would be used. 4 chronic smoking: We'll start patient on nicotine patch for now. 5 chronic lower back pain: Patient will be on Tylenol on as-needed basis. 6 chronic manic depression: Has been on Cytomel a prompt 20 mg daily. 7 GI prophylaxis/GERD: We'll start patient on Pepcid 20 mg daily. 8 anemia: We will add iron supplement and multivitamins. DVT prophylaxis: Patient will be on knee-high VONDA hose and Venodyne boots. CODE STATUS: Full code. Expectation from this admission: Patient in the hospital for more than 2 nights.
[2016-05-02 00:30] LABS: Glucose,Whole Blood 221 mg/dL (75-99)
[2016-05-02] MEDS: MAGNESIUM SULFATE-D5W PMX 1 GM in DEXTROSE/WATER 1 100ML.BAG IVPB SCH (00:47)
[2016-05-02 01:37] LABS: Glucose,Whole Blood 191 mg/dL (75-99)
[2016-05-02 02:44] LABS: Glucose,Whole Blood 159 mg/dL (75-99)
[2016-05-02] MEDS: ACETAMINOPHEN TAB 325 MG TAB PO PRN ×3 (02:45→17:03)
[2016-05-02] MEDS: D5-0.45% NACL WITH KCL 20MEQ/L 1,000 ML IV SCH ×2 (03:35→07:09)
[2016-05-02 03:53] LABS: Glucose,Whole Blood 133 mg/dL (75-99)
[2016-05-02 04:39] LABS: Glucose,Whole Blood 135 mg/dL (75-99)
[2016-05-02 05:45] LABS: Glucose,Whole Blood 145 mg/dL (75-99)
[2016-05-02 06:21] LABS: Basophils # (A) 0.1 k/uL (0-0.2); Basophils % (A) 1 %; CH 29.7; CHCM 33.8; Eosinophils # (A) 0.3 k/uL (0-0.7); Eosinophils % (A) 3 %; HCT 27.1 % (34.0-46.0); HDW 2.59; HGB 8.8 gm/dL (11.4-16.0); Luc # (Auto) 0.23; Luc % (Auto) 3; Lymphocytes # (A) 2.8 k/uL (1.0-4.8); Lymphocytes % (A) 30 %; MCH 28.7 pg (25.0-35.0); MCHC 32.5 g/dL (31.0-37.0); MCV 88.3 fL (80.0-100.0); Mean Platelet Volume 7.9; Monocytes # (A) 0.6 k/uL (0-1.0); Monocytes % (A) 6 %; Neutrophils # (A) 5.4 k/uL (1.3-7.7); Neutrophils % (A) 58 %; RBC 3.07 m/uL (3.80-5.40); RDW 13.2 % (11.5-15.5); WBC 9.3 k/uL (3.8-10.6); WBC (Perox) 9.95
[2016-05-02 06:30] LABS: ALT 38 U/L (9-52); AST 19 U/L (14-36); Alkaline Phosphatase 48 U/L (38-126); Anion Gap 11 mmol/L; Blood Urea Nitrogen 7 mg/dL (7-17); Calcium 7.9 mg/dL (8.4-10.2); Carbon Dioxide 17 mmol/L (22-30); Chloride 109 mmol/L (98-107); Glucose 136 mg/dL (74-99); Magnesium 1.9 mg/dL (1.6-2.3); Non-African American GFR(MDRD) >60 (>60 ml/min/1.73 sqM); Potassium 4.2 mmol/L (3.5-5.1); Sodium 137 mmol/L (137-145); Total Bilirubin 0.5 mg/dL (0.2-1.3); Total Protein 5.4 g/dL (6.3-8.2)
[2016-05-02 06:45] LABS: HCG,Quantitative Serum 2193.5 mIU/mL
[2016-05-02 07:07] LABS: Glucose,Whole Blood 157 mg/dL (75-99)
[2016-05-02 08:40] LABS: Glucose,Whole Blood 190 mg/dL (75-99)
--- NOTE | 2016-05-02 08:43 | P.OBCN ---
History of Present Illness Consult date: 05/02/16 Requesting physician: Mukesh Butts Reason for consult: early problem Chief complaint: Vaginal bleeding History of present illness: This is a 40-year-old 5 para 4004 woman who was admitted from the emergency room in [facility]. She also has a history of early and probable miscarriage. Patient reports that she has had worsening vaginal bleeding over the past 1 week. She was seen in the emergency room on 04/30/2016 and ultrasound at that time could not confirm an intrauterine nor an ectopic but she did have an elevated beta hCG greater than 13,000. She states she had an early ultrasound that confirmed an intrauterine 1-2 weeks prior at the [facility]. She was discharged home however unfortunately her bleeding increased and she re presented to the emergency room yesterday with heavy vaginal bleeding and passage of clots. She was also feeling unwell and further analysis revealed she was in diabetic ketoacidosis. She was therefore admitted for treatment of such. Patient reports that she had heavy vaginal bleeding throughout her stay in the emergency room however by the time she was admitted to the floor her bleeding had significantly decreased. This morning she reports minimal spotting. She denies abdominal pain or cramping. She reports feeling very hungry. She denies nausea, vomiting, fevers or chills. Her beta hCG has decreased from approximately 4700 on 05/01/2016 to 2100 this morning. Her hemoglobin on admission was 9.7 and this morning it is 8.8. Her blood type is Rh+. Review of Systems Constitutional: Reports fatigue, Denies fever Cardiovascular: Denies chest pain, Denies lightheadedness Respiratory: Denies cough Gastrointestinal: Denies abdominal pain, Denies constipation, Denies diarrhea, Denies nausea, Denies vomiting Genitourinary: Reports abnormal vaginal bleeding, Denies pelvic pain Menstruation: Reports amenorrhea Musculoskeletal: Denies low back pain Integumentary: Denies rash Neurological: Denies headaches Past Medical History Past Medical History: Diabetes Mellitus, Pneumonia Additional Past Medical History / Comment(s): BRONCHITIS, KIDNEY STONES,UTI, ANXIETY ,BIPOLAR DEPRESSION, normal spontaneous vaginal deliveries 4 History of Any Multi-Drug Resistant Organisms: None Reported Past Surgical History: Cholecystectomy Additional Past Surgical History / Comment(s): PAST MED HX LISTED CERCLAGE PROCEDURE X2 Past Anesthesia/Blood Transfusion Reactions: Postoperative Nausea & Vomiting ( PONV) Past Psychological History: Anxiety, Bipolar, Depression Additional Psychological History / Comment(s): PT STATED HAS'NT BEEN ON HER MEDS SINCE SHE HAS BEEN . AT TIME OF ADMIT DENIES ANY THOUGHTS OF HARMING SELF, NO SUICIDAL IDEATION. 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 Past Drug Use History: None Reported - Past Family History Mother Family Medical History: Congestive Heart Failure (CHF), Diabetes Mellitus, Hyperlipidemia, Hypertension Additional Family Medical History / Comment(s): KIDNEY FAILURE Father Family Medical History: Diabetes Mellitus Additional Family Medical History / Comment(s): COLLAPSED LUNG Medications and Allergies Home Medications Medication Instructions Recorded Confirmed Type glipiZIDE [Glucotrol] 10 mg PO TID 09/01/13 05/01/16 History Acetaminophen Tab [Tylenol Tab] 650 mg PO Q4H PRN 04/30/16 05/01/16 History Citalopram Hydrobromide 20 mg PO DAILY 05/01/16 05/01/16 History [Citalopram HBr] Allergies Allergy/AdvReac Type Severity Reaction Status Date / Time clarithromycin [From Biaxin] Allergy Unknown Verified 05/01/16 08:04 BBE STINGS Allergy Unknown Uncoded 05/01/16 18:09 MACULIDE Allergy Unknown Uncoded 05/01/16 18:08 Exam - Vital Signs Vital signs: Vital Signs Temp Pulse Pulse Pulse Resp BP BP 05/02/16 04:00 97.5 F L 99 18 05/02/16 00:00 97.7 F 108 H 18 05/01/16 20:00 97.8 F 115 H 18 130/81 05/01/16 16:58 97.1 F L 117 H 20 05/01/16 14:37 97.9 F 121 H 20 119/60 05/01/16 13:09 122 H 16 126/63 05/01/16 12:39 117 H 16 117/60 BP Pulse Ox 05/02/16 04:00 122/65 97 05/02/16 00:00 122/68 97 05/01/16 20:00 96 05/01/16 16:58 132/84 97 05/01/16 14:37 96 05/01/16 13:09 100 05/01/16 12:39 100 Intake and Output 05/01/16 05/02/16 05/02/16 22:59 06:59 14:59 Intake Total 37.128 2028.257 Balance 37.128 2028.257 Intake: Intake, IV Titration 37.128 2028.257 Amount D5-0.45% NaCl with KCl 1700 20Meq/l 1,000 ml @ 150 mls/hr IV .[id number] [facility] Rx# :[id number] Insulin Regular 100 unit 37.128 In Sodium Chloride 0.9% 100 ml @ 0.1 UNITS/KG/HR 8.93 mls/hr IV .[id number] [facility] Rx#:[id number] Insulin Regular 100 unit 28.257 In Sodium Chloride 0.9% 100 ml @ 0.1 UNITS/KG/HR 8.93 mls/hr IV .[id number] [facility] Rx#:[id number] Magnesium Sulfate-D5w Pmx 300 1 gm In Dextrose/Water 1 100ml.bag @ 100 mls/hr IVPB Q1H [facility] Rx#: [id number] Other: Voiding Method Toilet Toilet # Voids 1 Weight 88.3 kg This is a pleasant, comfortable appearing, obese female. HEENT exam is remarkable for alopecia of the crown and temporal hair thinning. She has some hair growth of the chin. Her breathing is unlabored. Targeted physical exam is performed as the patient is eating. Abdominal exam reveals obese, soft and nontender abdomen with no rebound, guarding or flank pain. She has scant vaginal bleeding. She declines pelvic exam stating she is very sore from her transvaginal ultrasound. She has mild lower extremity edema without erythema or tenderness. Results Result Diagrams: 05/02/16 05:52 05/02/16 05:52 Abnormal Lab Results - Last 24 Hours (Table) 05/01/16 05/01/16 05/01/16 Range/Units 12:36 13:20 13:59 WBC (3.8-10.6) k/uL RBC (3.80-5.40) m/uL Hgb (11.4-16.0) gm/dL Hct (34.0-46.0) % Neutrophils # (1.3-7.7) k/uL Sodium (137-145) mmol/L Chloride (98-107) mmol/L Carbon Dioxide (22-30) mmol/L Creatinine (0.52-1.04) mg/dL Glucose (74-99) mg/dL POC Glucose (mg/dL) 347 H 227 H (75-99) mg/dL Hemoglobin A1c 10.1 H (4.2-6.1) % Calcium (8.4-10.2) mg/dL Magnesium (1.6-2.3) mg/dL Total Protein (6.3-8.2) g/dL Albumin (3.5-5.0) g/dL 05/01/16 05/01/16 05/01/16 Range/Units 15:30 16:31 16:53 WBC (3.8-10.6) k/uL RBC (3.80-5.40) m/uL Hgb (11.4-16.0) gm/dL Hct (34.0-46.0) % Neutrophils # (1.3-7.7) k/uL Sodium (137-145) mmol/L Chloride (98-107) mmol/L Carbon Dioxide 17 L (22-30) mmol/L Creatinine 0.44 L (0.52-1.04) mg/dL Glucose 111 H (74-99) mg/dL POC Glucose (mg/dL) 143 H 111 H (75-99) mg/dL Hemoglobin A1c (4.2-6.1) % Calcium 8.3 L (8.4-10.2) mg/dL Magnesium (1.6-2.3) mg/dL Total Protein (6.3-8.2) g/dL Albumin (3.5-5.0) g/dL 05/01/16 05/01/16 05/01/16 Range/Units 17:10 18:03 18:56 WBC (3.8-10.6) k/uL RBC (3.80-5.40) m/uL Hgb (11.4-16.0) gm/dL Hct (34.0-46.0) % Neutrophils # (1.3-7.7) k/uL Sodium (137-145) mmol/L Chloride (98-107) mmol/L Carbon Dioxide (22-30) mmol/L Creatinine (0.52-1.04) mg/dL Glucose (74-99) mg/dL POC Glucose (mg/dL) 128 H 159 H 242 H (75-99) mg/dL Hemoglobin A1c (4.2-6.1) % Calcium (8.4-10.2) mg/dL Magnesium (1.6-2.3) mg/dL Total Protein (6.3-8.2) g/dL Albumin (3.5-5.0) g/dL 05/01/16 05/01/16 05/01/16 Range/Units 20:10 20:42 20:42 WBC 12.4 H (3.8-10.6) k/uL RBC 3.28 L (3.80-5.40) m/uL Hgb 9.7 L D (11.4-16.0) gm/dL Hct 29.0 L (34.0-46.0) % Neutrophils # 8.4 H (1.3-7.7) k/uL Sodium 134 L (137-145) mmol/L Chloride (98-107) mmol/L Carbon Dioxide 15 L (22-30) mmol/L Creatinine (0.52-1.04) mg/dL Glucose 265 H (74-99) mg/dL POC Glucose (mg/dL) 293 H (75-99) mg/dL Hemoglobin A1c (4.2-6.1) % Calcium (8.4-10.2) mg/dL Magnesium 1.3 L (1.6-2.3) mg/dL Total Protein (6.3-8.2) g/dL Albumin (3.5-5.0) g/dL 05/01/16 05/01/16 05/01/16 Range/Units 21:09 22:06 23:13 WBC (3.8-10.6) k/uL RBC (3.80-5.40) m/uL Hgb (11.4-16.0) gm/dL Hct (34.0-46.0) % Neutrophils # (1.3-7.7) k/uL Sodium (137-145) mmol/L Chloride (98-107) mmol/L Carbon Dioxide (22-30) mmol/L Creatinine (0.52-1.04) mg/dL Glucose (74-99) mg/dL POC Glucose (mg/dL) 320 H 325 H 261 H (75-99) mg/dL Hemoglobin A1c (4.2-6.1) % Calcium (8.4-10.2) mg/dL Magnesium (1.6-2.3) mg/dL Total Protein (6.3-8.2) g/dL Albumin (3.5-5.0) g/dL 05/02/16 05/02/16 05/02/16 Range/Units 00:17 01:33 02:30 WBC (3.8-10.6) k/uL RBC (3.80-5.40) m/uL Hgb (11.4-16.0) gm/dL Hct (34.0-46.0) % Neutrophils # (1.3-7.7) k/uL Sodium (137-145) mmol/L Chloride (98-107) mmol/L Carbon Dioxide (22-30) mmol/L Creatinine (0.52-1.04) mg/dL Glucose (74-99) mg/dL POC Glucose (mg/dL) 221 H 191 H 159 H (75-99) mg/dL Hemoglobin A1c (4.2-6.1) % Calcium (8.4-10.2) mg/dL Magnesium (1.6-2.3) mg/dL Total Protein (6.3-8.2) g/dL Albumin (3.5-5.0) g/dL 05/02/16 05/02/16 05/02/16 Range/Units 03:33 04:37 05:43 WBC (3.8-10.6) k/uL RBC (3.80-5.40) m/uL Hgb (11.4-16.0) gm/dL Hct (34.0-46.0) % Neutrophils # (1.3-7.7) k/uL Sodium (137-145) mmol/L Chloride (98-107) mmol/L Carbon Dioxide (22-30) mmol/L Creatinine (0.52-1.04) mg/dL Glucose (74-99) mg/dL POC Glucose (mg/dL) 133 H 135 H 145 H (75-99) mg/dL Hemoglobin A1c (4.2-6.1) % Calcium (8.4-10.2) mg/dL Magnesium (1.6-2.3) mg/dL Total Protein (6.3-8.2) g/dL Albumin (3.5-5.0) g/dL 05/02/16 05/02/16 05/02/16 Range/Units 05:52 05:52 07:06 WBC (3.8-10.6) k/uL RBC 3.07 L (3.80-5.40) m/uL Hgb 8.8 L (11.4-16.0) gm/dL Hct 27.1 L (34.0-46.0) % Neutrophils # (1.3-7.7) k/uL Sodium (137-145) mmol/L Chloride 109 H (98-107) mmol/L Carbon Dioxide 17 L (22-30) mmol/L Creatinine 0.40 L (0.52-1.04) mg/dL Glucose 136 H (74-99) mg/dL POC Glucose (mg/dL) 157 H (75-99) mg/dL Hemoglobin A1c (4.2-6.1) % Calcium 7.9 L (8.4-10.2) mg/dL Magnesium (1.6-2.3) mg/dL Total Protein 5.4 L (6.3-8.2) g/dL Albumin 2.9 L (3.5-5.0) g/dL US - abdomen: report reviewed Assessment and Plan (1) DKA (diabetic ketoacidosis) Status: Acute (2) Spontaneous miscarriage Status: Acute Plan: This is a 40-year-old 5 para 4014 woman to was admitted for diabetic ketoacidosis and spontaneous miscarriage. It sounds as though she actually actively miscarried in the emergency room yesterday and her bleeding has now significantly decreased. Her clinical exam is benign however she did refuse pelvic exam. Review of ultrasound from 04/30/2016 is not overly concerning for ectopic . Her hCG levels have significantly decreased and will need to be followed to less than 5 to assure complete resolution of the . She is declining D&C at this time. I discussed with her the probability of some ongoing light vaginal bleeding and the need for short-term follow-up. Her blood type is Rh+.
[2016-05-02] MEDS ORDERED: NICOTINE 14MG/24HR PATCH TRANSDERM SCH (09:00)
[2016-05-02] MEDS ORDERED: CITALOPRAM HYDROBROMIDE 20 MG TAB PO SCH (09:00)
[2016-05-02] MEDS ORDERED: FAMOTIDINE 20 MG TAB PO SCH (09:00)
[2016-05-02 09:28] LABS: Glucose,Whole Blood 239 mg/dL (75-99)
[2016-05-02 10:12] LABS: Glucose,Whole Blood 278 mg/dL (75-99)
[2016-05-02 11:30] LABS: Glucose,Whole Blood 265 mg/dL (75-99)
[2016-05-02 11:42] LABS: CH 29.6; CHCM 33.9; HCT 26.7 % (34.0-46.0); HDW 2.57; HGB 8.8 gm/dL (11.4-16.0); MCH 29.1 pg (25.0-35.0); MCHC 33.2 g/dL (31.0-37.0); MCV 87.7 fL (80.0-100.0); RBC 3.04 m/uL (3.80-5.40); RDW 13.4 % (11.5-15.5); WBC 8.5 k/uL (3.8-10.6)
[2016-05-02 12:10] LABS: ALT 38 U/L (9-52); AST 27 U/L (14-36); Alkaline Phosphatase 62 U/L (38-126); Anion Gap 12 mmol/L; Blood Urea Nitrogen 7 mg/dL (7-17); Calcium 8.1 mg/dL (8.4-10.2); Carbon Dioxide 17 mmol/L (22-30); Chloride 106 mmol/L (98-107); Glucose 253 mg/dL (74-99); Non-African American GFR(MDRD) >60 (>60 ml/min/1.73 sqM); Phosphorous 3.3 mg/dL (2.5-4.5); Potassium 4.6 mmol/L (3.5-5.1); Sodium 135 mmol/L (137-145); Total Bilirubin 0.5 mg/dL (0.2-1.3); Total Protein 5.7 g/dL (6.3-8.2)
[2016-05-02 12:23] LABS: Glucose,Whole Blood 276 mg/dL (75-99)
[2016-05-02 12:26] VITALS: RESP 16; TEMP 98.6
[2016-05-02] MEDS ORDERED: FERROUS SULFATE 325 MG TAB PO SCH (12:30)
[2016-05-02] MEDS: INSULIN LISPRO (humaLOG) 300 UNIT/3 ML VIAL SQ SCH ×4 (12:47→17:07)
[2016-05-02] MEDS ORDERED: SODIUM CHLORIDE 0.9% 1,000 ML IV SCH (13:00)
[2016-05-02] MEDS: INSULIN REGULAR 100 UNIT in SODIUM CHLORIDE 0.9% 100 ML IV SCH (13:17)
--- NOTE | 2016-05-02 14:00 | P.DS ---
Providers Date of admission: 05/01/16 12:18 Expected date of discharge: 05/02/16 Attending physician: Mkuesh Butts Consults: 05/01/16 12:19 Consult Physician Urgent Consulting Provider: Aye Augustin Consult Reason/Comments: Spontaneous miscarriage Do you want consulting provider notified?: Yes Primary care physician: [facility] Course: 40-year-old female one of Dr. Curtis patient with past medical history of obesity, manic depression, diabetes, chronic history of back pain history of anemia and kidney stone who has history of asthma as well who was in the emergency department apparently yesterday with vaginal bleed was diagnosed as a spontaneous miscarriage was treated and sent home. Patient presented to the emergency department at [facility] again complaining of worsening vaginal bleed with not feeling well including increased polydipsia polyuria with significantly abnormal elevated blood sugar and increased lower back pain. Patient was seen and evaluated surprisingly looks in active spontaneous miscarriage. Also her acetone level came back elevated blood sugar running in the high 400, patient was diagnosed with DKA. Was started on DKA protocol continue hydration along with insulin drip. Patient will be hospitalized with the above problem she has been on oral hypoglycemic agent up till now with A1c running about 10 patient will be converted to insulin was started on Lantus tonight by tomorrow morning will be started on NovoLog before meals meals and sliding scales beside the Lantus at nighttime. Also will consult [employer] for her spontaneous miscarriage patient might need to go for D&C. 05/02: Patient has been seen by Dr. Augustin. Her blood sugars are now running 133-278. Hemoglobin is 8.8. Patient has been started on iron supplement. She will be taken off glipizide for home. Insulin drip will be switched over to scheduled Lantus, scheduled Humalog and Humalog scale which she will continue at home. Patient states that she has used insulin in the past and knows how to manage. Patient will be discharged home late today in stable condition. Discharge diagnoses: 1 DKA 2 spontaneous miscarriage 3 elevated blood pressure 4 chronic smoking 5 chronic lower back pain 6 chronic manic depression 7 GERD 8. Acute blood loss anemia Discharge plan: Return home Impression and plan of care have been directed as dictated by the signing physician. Elysia Duffy nurse practitioner acting as scribe for signing physician. Patient Condition at Discharge: Good Plan - Discharge Summary New Discharge Prescriptions: Ferrous Sulfate [Iron (65 MG Elemental)] 325 mg PO W/LUNCH #30 tab Insulin Glargine,Hum.rec.anlog [Lantus Solostar] 30 unit SQ HS #2 ml Insulin Lispro [humaLOG Kwikpen] 10 unit SQ AC-TID #3 insuln.pen Nicotine 14Mg/24Hr Patch [Habitrol] 1 patch TRANSDERM DAILY #30 patch Discharge Medication List Acetaminophen Tab [Tylenol] 650 mg PO Q4H PRN 04/30/16 [History] Citalopram Hydrobromide [Citalopram HBr] 20 mg PO DAILY 05/01/16 [History] Ferrous Sulfate [Iron (65 MG Elemental)] 325 mg PO W/LUNCH #30 tab 05/02/16 [Rx] INSULIN LISPRO (humaLOG) [humaLOG (formulary)] 0 unit SQ ACHS vial 05/02/16 [Rx ] Insulin Glargine,Hum.rec.anlog [Lantus Solostar] 30 unit SQ HS #2 ml 05/02/16 [ Rx] Insulin Lispro [humaLOG Kwikpen] 10 unit SQ AC-TID #3 insuln.pen 05/02/16 [Rx] Nicotine 14Mg/24Hr Patch [Habitrol] 1 patch TRANSDERM DAILY #30 patch 05/02/16 [ Rx] Follow up Appointment(s)/Referral(s): Leroy Lance DO [REFERRING] - 1 Week Mateus Curtis DO [Primary Care Provider] - 1 Week Discharge Disposition: HOME SELF-CARE
[2016-05-02 14:44] VITALS: BMI 33.4
[2016-05-02 16:50] LABS: Glucose,Whole Blood 167 mg/dL (75-99)
[2016-05-02 17:03] VITALS: BP 118/57; PULSE 101
[2016-05-02] MEDS ORDERED: INSULIN GLARGINE 100 UNIT/ML 10 ML VIAL SQ SCH (21:00)
== END 2016-05-02 19:02 | disposition home or self-care (01) | DRG 638 ==
LOC: EC 07:47 → 6SEL 12:18
PROVIDERS: ADMIT Internal Medicine Geriatric Medicine; ATTEND Internal Medicine Geriatric Medicine
DX: E13.10 Other specified diabetes mellitus with ketoacidosis without coma (principal); D62 Acute posthemorrhagic anemia; O24.111 Pre-existing type 2 diabetes mellitus, in pregnancy, first trimester; O03.9 Complete or unspecified spontaneous abortion without complication; O99.341 Other mental disorders complicating pregnancy, first trimester; O99.331 Smoking (tobacco) complicating pregnancy, first trimester; F41.9 Anxiety disorder, unspecified; F31.9 Bipolar disorder, unspecified; R03.0 Elevated blood-pressure reading, without diagnosis of hypertension; O99.89 Other specified diseases and conditions complicating pregnancy, childbirth and the puerperium; O09.521 Supervision of elderly multigravida, first trimester; K21.9 Gastro-esophageal reflux disease without esophagitis; M54.5 Low back pain; G89.29 Other chronic pain; O34.81 Maternal care for other abnormalities of pelvic organs, first trimester; N81.10 Cystocele, unspecified; R60.9 Edema, unspecified; O99.611 Diseases of the digestive system complicating pregnancy, first trimester; O26.891 Other specified pregnancy related conditions, first trimester; R11.0 Nausea; J45.909 Unspecified asthma, uncomplicated; O99.511 Diseases of the respiratory system complicating pregnancy, first trimester; F17.210 Nicotine dependence, cigarettes, uncomplicated; Z83.3 Family history of diabetes mellitus; Z87.442 Personal history of urinary calculi; Z82.49 Family history of ischemic heart disease and other diseases of the circulatory system; Z88.1 Allergy status to other antibiotic agents; Z91.030 Bee allergy status; Z87.440 Personal history of urinary (tract) infections; Z87.01 Personal history of pneumonia (recurrent); Z87.09 Personal history of other diseases of the respiratory system; Z3A.01 Less than 8 weeks gestation of pregnancy; Z71.6 Tobacco abuse counseling; Z84.1 Family history of disorders of kidney and ureter; Z83.6 Family history of other diseases of the respiratory system; Z79.899 Other long term (current) drug therapy; Z90.49 Acquired absence of other specified parts of digestive tract
CPT/HCPCS: 36415; 80048; 80051; 80053; 81001; 82009; 82565; 82947; 83036; 83735; 84100; 84520; 84702; 85025; 85027; 85610; 85730; 96361; 96365; 96366; 96368; 99284

== ENCOUNTER → 2016-10-14 | Outpatient (CLI) | payer OTHER ==
--- NOTE | 2016-10-14 16:38 | XR ---
EXAMINATION TYPE: XR lumbosacral spine min 4V DATE OF EXAM: 10/14/2016 COMPARISON: NONE HISTORY: 40-year-old female with low back pain TECHNIQUE: 5 views FINDINGS: Very gentle dextro convex curvature of the lumbar spine. Cholecystectomy clips are present. There see ms to be a transitional lumbosacral segment denoted as a sacralized L5. Facet arthropathy mid to lowe r lumbar spine. Mild multilevel degenerative disc disease characterized by mild disc interspace narro wing and bulging discs. Vertebral body heights are preserved and alignment is maintained. IMPRESSION: 1. Transitional lumbosacral segment denoted as a sacralized L5. 2. Multilevel mild degenerative disc disease. 3. Hypertrophic facet arthropathy especially in the mid to lower lumbar spine. 4. No vertebral compression collapse or malalignment.
== END | disposition home or self-care (01) ==
LOC: RADXRMAIN 16:06
PROVIDERS: ATTEND Family Medicine
DX: M51.36 Other intervertebral disc degeneration, lumbar region (principal); M46.06 Spinal enthesopathy, lumbar region
CPT/HCPCS: 72110

== ENCOUNTER → 2017-11-27 | Outpatient (CLI) | payer OTHER ==
--- NOTE | 2017-11-29 11:33 | MR ---
EXAMINATION TYPE: MR lumbar spine wo con DATE OF EXAM: 11/27/2017 COMPARISON: Plain film 10/14/2016, prior lumbar MRI 01/03/2016 HISTORY: Back pain for years, Previous MRI on PACS TECHNIQUE: Multiplanar, multisequence images of the lumbar spine were acquired. L1-L2: Hypertrophic changes of the facets causes posterior lateral mass effect on the thecal sac. No disc herniation or central stenosis. No significant foraminal encroachment. L2-L3: Facet arthropathy is present. No disc herniation or foraminal encroachment, no central stenosi s. L3-L4: Facet arthropathy with vertically ligamentum flavum encroaches somewhat on the lateral recesse s. No significant central stenosis or evident disc herniation. L4-L5: Posterior extension endplate disc complex causes anterior mass effect on the thecal sac. Small central posterior disc herniation causes central effacement of the epidural space. No significant ce ntral stenosis. There is facet arthropathy. No foraminal encroachment. L5-S1: There is a posterior disc herniation present causing anterolateral mass effect on the thecal s ac towards the right, deformity of the thecal sac similar to prior exam, circumferential extension en dplate disc complex is present greater on the left and likely contributed by the scoliosis. Facet art hropathy changes present. Only mild central canal stenosis. Lumbar segments are intact. No paraspinal masses are identified. Conus medullaris has a normal appe arance. There is a mild spinal curvature present. Lumbar vertebral bodies show preserved height. Mini mal spondylosis, endplate discogenic marrow signal change especially L5-S1. IMPRESSION: Findings are similar to prior, right posterior paracentral disc herniation L5-S1, correlate for right S1 radiculopathy. Neural foraminal encroachment. Facet arthropathy, there is vacuum phenomenon at th e disc at L5-S1. Spinal curvature likely contributes to the findings as described.
== END | disposition home or self-care (01) ==
LOC: RADMRIMAIN 19:39
PROVIDERS: ATTEND Family Medicine
DX: M51.17 Intervertebral disc disorders with radiculopathy, lumbosacral region (principal); M46.86 Other specified inflammatory spondylopathies, lumbar region; M43.8X6 Other specified deforming dorsopathies, lumbar region
CPT/HCPCS: 72148

== ENCOUNTER → 2018-06-30 | Outpatient (CLI) | payer OTHER ==
--- NOTE | 2018-06-30 12:08 | XR ---
EXAMINATION TYPE: XR thoracic spine complete DATE OF EXAM: 06/30/2018 COMPARISON: NONE HISTORY: Back pain Alignment is anatomic. There is no compression deformities. Vertebral body height and disc interspa luba are maintained. Surgical clips in the right upper quadrant abdomen. There is hypertrophic and de generative disc disease throughout. No compression deformities. IMPRESSION: 1. Multilevel hypertrophic and degenerative disc disease.
== END ==
LOC: RADXRMAIN 11:22
PROVIDERS: ATTEND Family Medicine
DX: M51.34 Other intervertebral disc degeneration, thoracic region (principal)
CPT/HCPCS: 72072

== ENCOUNTER → 2018-07-17 | Outpatient (CLI) | payer OTHER ==
--- NOTE | 2018-07-19 08:47 | MR ---
EXAMINATION TYPE: MR cervical spine wo con DATE OF EXAM: 07/17/2018 COMPARISON: NONE HISTORY: Pain, Radiculopathy TECHNIQUE: T1 sagittal and coronal, T2 sagittal, and gradient echo axial views of the cervical spine are submitted. FINDINGS: Exam severely limited due to extreme patient motion artifact. The cranial cervical junction is preserved. Assessment spinal cord nondiagnostic due to extreme motion artifact. At C2-3 there is no obvious disc herniation or canal stenosis. Patent. Mild posterior spondylosis see n percent right. At C3-4 there is no disc herniation or canal stenosis. No definite foraminal encroachment. At C4-5 there is suggestion of a central and right paracentral disc protrusion or small herniation ab utting the anterior margin the spinal cord. Uncovertebral joint hypertrophy is seen bilaterally is mi ld bilateral foraminal encroachment. At C5-6 there is broad-based central left paracentral disc herniation abutting the anterior margin th e spinal cord. Uncovertebral joint hypertrophy results in mild bilateral foraminal encroachment. At C6-7 there is left paracentral disc herniation and moderate effacement of thecal sac. There is unc overtebral joint hypertrophy and mild bilateral foraminal encroachment. At C7-T1 there is no definite disc herniation or canal stenosis. No foraminal encroachment. IMPRESSION: 1. Severely Limited exam due to extreme motion artifact demonstrates findings suspicious for disc he rniation C4-5, C5-6 and C6-C7 which abuts the anterior margin the spinal cord. EXAMINATION TYPE: MR thoracic spine wo con DATE OF EXAM: 07/17/2018 COMPARISON: None HISTORY: Pain, Radiculopathy Standard multiplanar, multisequence MRI departmental protocol Multiplanar, multisequence images of the thoracic spine were acquired. FINDINGS: Exam severely limited due to motion artifact. Assessment spinal cord is nondiagnostic due to motion artifact. At T1-T2 no obvious disc herniation or canal stenosis. Neural foramina patent. T2-T3 circumferential disc bulging but no canal stenosis. No foraminal encroachment. At T3-T4 there is a left paracentral disc bulge or small protrusion. Neural foramina remain patent. At T4-T5 there is a left paracentral disc herniation which abuts the anterior left margin of the spin al cord. Suggestion of displacement of the exiting left nerve root. T5-T6 there is a right paracentral disc herniation which results in thecal sac compression and abuts the anterior margin the spinal cord. At T6-T7 there is a right paracentral disc protrusion or small herniation which abuts the anterior ma rgin the spinal cord and results in thecal sac compression. T7-T8 there is a central and right paracentral disc protrusion with moderate effacement of thecal sac . No spinal cord contact. Neural foramina remain patent. At T8-T9 there is broad-based central disc herniation which results in moderate compression of thecal sac. No spinal cord contact. Neural foramina remain patent. At T9-T10 there is left paracentral disc protrusion. There is mild narrowing of the exiting left nerv e root. At T10-T11 there is a focal left paracentral disc herniation which compresses the exiting left nerve root and narrows the neural foramina. No spinal cord contact. At T11-T12 there is no disc herniation or canal stenosis. At T12/L1 there is no disc herniation or canal stenosis. No foraminal encroachment. IMPRESSION: Exam severely limited due to the patient's history of claustrophobia and severe motion artifact demon strates bilevel degenerative disc disease with multilevel disc herniations as discussed above.
== END ==
LOC: RADMRIMAIN 11:31
PROVIDERS: ATTEND Family Medicine
DX: M51.14 Intervertebral disc disorders with radiculopathy, thoracic region (principal); M54.12 Radiculopathy, cervical region
CPT/HCPCS: 72141; 72146

== ENCOUNTER 2018-07-27 15:41 | Emergency (ER) | payer OTHER ==
[2018-07-27 15:51] VITALS: RESP 18
--- NOTE | 2018-07-27 16:01 | ED ---
General Adult HPI - General Chief complaint: Fall Stated complaint: Fall Time Seen by Provider: 07/27/18 15:51 Source: patient, RN notes reviewed Mode of arrival: ambulatory Limitations: no limitations - History of Present Illness Initial comments: 42-year-old female presents to the emergency department for chief complaint of fall that occurred earlier today. Patient states she was getting out of her truck when she fell. States that she hit her head against the side bar and had a headache initially that has since resolved. States she felt nauseous at that time but did not vomit. Patient states the right side of her neck is also very painful. States she has a history of bulging disks in her neck and is concerned about this. Patient also complaining of left hip pain. States she is able to a blade on this but she did fall on her left hip and it is tender. Denies any pain radiating down the leg. Denies any bladder or bowel changes or saddle anesthesia. Patient has no other complaints at this time including shortness of breath, chest pain, abdominal pain, vomiting, headache, or visual changes. - Related Data Home Medications Medication Instructions Recorded Confirmed Acetaminophen Tab [Tylenol] 650 mg PO Q4H PRN 04/30/16 05/01/16 Citalopram Hydrobromide 20 mg PO DAILY 05/01/16 05/01/16 [Citalopram HBr] Previous Rx's Medication Instructions Recorded Ferrous Sulfate [Iron (65 MG 325 mg PO W/LUNCH #30 tab 05/02/16 Elemental)] INSULIN LISPRO (humaLOG) [humaLOG] 0 unit SQ ACHS vial 05/02/16 Insulin Glargine,Hum.rec.anlog 30 unit SQ HS #2 ml 05/02/16 [Lantus Solostar] Insulin Lispro [humaLOG Kwikpen] 10 unit SQ AC-TID #3 insuln.pen 05/02/16 Nicotine 14Mg/24Hr Patch [Habitrol] 1 patch TRANSDERM DAILY #30 patch 05/02/16 Allergies Allergy/AdvReac Type Severity Reaction Status Date / Time clarithromycin [From Biaxin] Allergy Unknown Verified 07/27/18 15:50 BBE STINGS Allergy Unknown Uncoded 07/27/18 15:50 MACULIDE Allergy Unknown Uncoded 07/27/18 15:50 Review of Systems ROS Statement: Those systems with pertinent positive or pertinent negative responses have been documented in the HPI. ROS Other: All systems not noted in ROS Statement are negative. Past Medical History Past Medical History: Diabetes Mellitus, Pneumonia Additional Past Medical History / Comment(s): BRONCHITIS, KIDNEY STONES,UTI, ANXIETY ,BIPOLAR DEPRESSION History of Any Multi-Drug Resistant Organisms: None Reported Past Surgical History: Cholecystectomy Additional Past Surgical History / Comment(s): PAST MED HX LISTED CERCLAGE PROCEDURE X2 Past Anesthesia/Blood Transfusion Reactions: Postoperative Nausea & Vomiting (PONV) Past Psychological History: Anxiety, Bipolar, Depression Smoking Status: Current every day smoker Past Alcohol Use History: None Reported Past Drug Use History: None Reported - Past Family History Mother Family Medical History: Congestive Heart Failure (CHF), Diabetes Mellitus, Hyperlipidemia, Hypertension Additional Family Medical History / Comment(s): KIDNEY FAILURE Father Family Medical History: Diabetes Mellitus Additional Family Medical History / Comment(s): COLLAPSED LUNG General Exam Limitations: no limitations General appearance: alert, in no apparent distress Head exam: Present: atraumatic (I do not feel any evidence of hematoma on the scalp over patient states she does feel a bump on the left parietal scalp), normocephalic, normal inspection Eye exam: Present: normal appearance, PERRL, EOMI. Absent: scleral icterus, conjunctival injection, periorbital swelling ENT exam: Present: normal exam, normal oropharynx, mucous membranes moist, TM's normal bilaterally (Give hemotympanum), normal external ear exam Neck exam: Present: normal inspection, tenderness (Tenderness of the right paraspinal muscles), full ROM. Absent: meningismus, lymphadenopathy Respiratory exam: Present: normal lung sounds bilaterally. Absent: respiratory distress, wheezes, rales, rhonchi, stridor Cardiovascular Exam: Present: regular rate, normal rhythm, normal heart sounds. Absent: systolic murmur, diastolic murmur, rubs, gallop, clicks Extremities exam: Present: full ROM (Full range of motion of the left hip), tenderness (Tetanus the lateral portion of the left hip), normal capillary refill ( are slightly capillary refill less than 2 seconds, DP pulse 2+ in the left lower extremity ), other (She is able to ambulate without difficulty and walked into the emergency department without a wheelchair). Absent: joint swelling (Edema or ecchymosis present in the left lower extremity) Back exam: Absent: vertebral tenderness (No thoracic or lumbar spine tenderness) Neurological exam: Present: alert, oriented X3, CN II-XII intact Psychiatric exam: Present: normal affect, normal mood Course Vital Signs 07/27/18 15:48 Temperature 98.7 F Pulse Rate 88 Respiratory 18 Rate Blood Pressure 116/71 O2 Sat by Pulse 96 Oximetry Medical Decision Making - Medical Decision Making 32-year-old female presents to the emergency department for a chief complaint of fall. Patient did hit her head, no loss consciousness or blood thinners. Patient also complaining of right-sided neck pain. Patient does have right- sided neck tenderness. No focal neuro deficits. GCS 15. Patient has full range motion of the left hip although she is quitting of left hip pain. Minimal lateral tenderness. Patient ambulatory without difficulty. Neurovascular intact. CT brain and C-spine shows no acute fracture or dislocation and no acute intercranial hemorrhage, mass effect, or midline shift. At this time patient likely has strain of cervical muscle and contusion of left hip. Will follow up with primary care in 1-2 days. Will return here if she has any worsening symptoms. Disposition Clinical Impression: Cervical strain, Contusion, hip Disposition: HOME SELF-CARE Condition: Good Instructions (If sedation given, give patient instructions): Hip Pain (ED), Cervical Strain (ED) Additional Instructions: Please follow up with primary care in 1-2 days. Continue to take care at home pain medications as directed. Please return to the emergency department if you have any worsening symptoms. Is patient prescribed a controlled substance at d/c from ED?: No Referrals: Mateus Curtis DO [Primary Care Provider] - 1-2 days Time of Disposition: 17:49
--- NOTE | 2018-07-27 16:47 | CT ---
EXAMINATION TYPE: CT brain wang allison DATE OF EXAM: 07/27/2018 COMPARISON: None HISTORY: Fall today with head injury. complains of neck pain and stiffness CT DLP: 1614 mGycm Automated exposure control for dose reduction was used. TECHNIQUE: CT scan of the head and cervical spine are performed without contrast. FINDINGS: There is no acute intracranial hemorrhage, mass effect, or midline shift identified. The ventricles and sulci are within normal limits in size. The globes are intact and the visualized sin uses are clear. Cervical spine is visualized in its entirety from C1 through upper thoracic levels and demonstrates s atisfactory alignment without evidence of acute fracture or dislocation. Prevertebral soft tissue ap pears within normal limits. The C1-C2 articulation is unremarkable. IMPRESSION: 1. There is no acute fracture or dislocation evident in the cervical spine. 2. No acute intracranial hemorrhage, mass effect, or midline shift is seen.
--- NOTE | 2018-07-27 17:29 | XR ---
PROCEDURE: XR Hip Complete LT - 2V DATE AND TIME: 07/27/2018 4:52 PM CLINICAL INDICATION: PHH; Pain TECHNIQUE: Department protocol COMPARISON: None FINDINGS: There is no fracture or malalignment. The soft tissues are unremarkable. IMPRESSION: NO ACUTE PROCESS.
[2018-07-27 18:03] VITALS: BP 124/68; PULSE 71; TEMP 97.9
== END 2018-07-27 18:02 | disposition home or self-care (01) ==
LOC: EC 15:41
DX: S70.02XA Contusion of left hip, initial encounter (principal); S16.1XXA Strain of muscle, fascia and tendon at neck level, initial encounter; F41.9 Anxiety disorder, unspecified; F31.9 Bipolar disorder, unspecified; F17.200 Nicotine dependence, unspecified, uncomplicated; Z79.899 Other long term (current) drug therapy; Z88.1 Allergy status to other antibiotic agents; Z91.030 Bee allergy status; W18.09XA Striking against other object with subsequent fall, initial encounter
CPT/HCPCS: 70450; 72125; 73502; 99284

== ENCOUNTER 2019-01-01 11:35 | Emergency (ER) | payer OTHER ==
[2019-01-01 11:47] VITALS: TEMP 98
[2019-01-01] MEDS ORDERED: SODIUM CHLORIDE 0.9% 1,000 ML IV STA (12:22)
[2019-01-01] MEDS ORDERED: ONDANSETRON 4 MG/2 ML VIAL IVP STA (12:25)
[2019-01-01] MEDS ORDERED: KETOROLAC 30 MG/ML 1 ML VIAL IVP STA (12:25)
--- NOTE | 2019-01-01 12:28 | ED ---
General Adult HPI - General Chief complaint: Back Pain/Injury Stated complaint: poss kidney stone Time Seen by Provider: 01/01/19 11:50 Source: patient, RN notes reviewed Mode of arrival: ambulatory Limitations: no limitations - History of Present Illness Initial comments: 43-year-old female with a past medical history of diabetes, bronchitis, kidney stones, UTI, anxiety, chronic back pain with pain management receiving injections presents to the emergency department for multiple complaints. Patient states that she has had dark foul-smelling urine for 2 days. States that she has urinary frequency but denies dysuria. States she has worsening chr onic back pain. States she has had a kidney stone in the past and this feels similar. States it is across her lower back. It started as a pressure. Denies any saddle anesthesia or bladder or bowel changes. Denies any weakness in the lower extremities. States she has chronic right leg numbness due to her back problems.Patient has no other complaints at this time including shortness of breath, chest pain, abdominal pain, nausea or vomiting, headache, or visual changes. - Related Data Home Medications Medication Instructions Recorded Confirmed Acetaminophen Tab [Tylenol] 650 mg PO Q4H PRN 04/30/16 05/01/16 Citalopram Hydrobromide 20 mg PO DAILY 05/01/16 05/01/16 [Citalopram HBr] Previous Rx's Medication Instructions Recorded Ferrous Sulfate [Iron (65 MG 325 mg PO W/LUNCH #30 tab 05/02/16 Elemental)] INSULIN LISPRO (humaLOG) [humaLOG] 0 unit SQ ACHS vial 05/02/16 Insulin Glargine,Hum.rec.anlog 30 unit SQ HS #2 ml 05/02/16 [Lantus Solostar] Insulin Lispro [humaLOG Kwikpen] 10 unit SQ AC-TID #3 insuln.pen 05/02/16 Nicotine 14Mg/24Hr Patch [Habitrol] 1 patch TRANSDERM DAILY #30 patch 05/02/16 Ciprofloxacin HCl [Cipro] 500 mg PO BID 7 Days #14 tab 01/01/19 Allergies Allergy/AdvReac Type Severity Reaction Status Date / Time clarithromycin [From Biaxin] Allergy Unknown Verified 01/01/19 11:48 BBE STINGS Allergy Unknown Uncoded 01/01/19 11:48 MACULIDE Allergy Unknown Uncoded 01/01/19 11:48 Review of Systems ROS Statement: Those systems with pertinent positive or pertinent negative responses have been documented in the HPI. ROS Other: All systems not noted in ROS Statement are negative. Past Medical History Past Medical History: Diabetes Mellitus, Pneumonia Additional Past Medical History / Comment(s): BRONCHITIS, KIDNEY STONES,UTI, ANXIETY ,BIPOLAR DEPRESSION chronic back pain History of Any Multi-Drug Resistant Organisms: None Reported Past Surgical History: Cholecystectomy Additional Past Surgical History / Comment(s): PAST MED HX LISTED CERCLAGE PROCEDURE X2 Past Anesthesia/Blood Transfusion Reactions: Postoperative Nausea & Vomiting (PONV) Past Psychological History: Anxiety, Bipolar, Depression Smoking Status: Current every day smoker Past Alcohol Use History: None Reported Past Drug Use History: None Reported - Past Family History Mother Family Medical History: Congestive Heart Failure (CHF), Diabetes Mellitus, Hyperlipidemia, Hypertension Additional Family Medical History / Comment(s): KIDNEY FAILURE Father Family Medical History: Diabetes Mellitus Additional Family Medical History / Comment(s): COLLAPSED LUNG General Exam Limitations: no limitations General appearance: alert, in no apparent distress Head exam: Present: atraumatic, normocephalic, normal inspection Eye exam: Present: normal appearance, PERRL, EOMI. Absent: scleral icterus, conjunctival injection, periorbital swelling ENT exam: Present: normal exam, mucous membranes moist Neck exam: Present: normal inspection, full ROM. Absent: tenderness, meningismus, lymphadenopathy Respiratory exam: Present: normal lung sounds bilaterally. Absent: respiratory distress, wheezes, rales, rhonchi, stridor Cardiovascular Exam: Present: regular rate, normal rhythm, normal heart sounds. Absent: systolic murmur, diastolic murmur, rubs, gallop, clicks Extremities exam: Present: normal capillary refill (Capillary refill less than 2 seconds, DP pulse 2+ in lower 70s bilaterally.), other (Sensation intact in the lower x-rays bilaterally) Back exam: Present: paraspinal tenderness, vertebral tenderness (Generalized lum bar spine and lower back tenderness). Absent: CVA tenderness (R), CVA tenderness (L) Neurological exam: Present: alert, oriented X3, CN II-XII intact, normal gait Course Vital Signs 01/01/19 01/01/19 01/01/19 11:44 12:55 15:18 Temperature 98 F Pulse Rate 91 72 67 Respiratory 22 18 18 Rate Blood Pressure 100/88 110/85 117/61 O2 Sat by Pulse 96 95 100 Oximetry - Reevaluation(s) Reevaluation #1: 01/01/19 14:09 Delay in care with urine sample. First urine was sent immediately upon arrival by RN and apparently the top was not on all the way. Therefore another urine was sent and the tube systems were down. Tech took it to the lab however they're claiming they do not have it. Medical Decision Making - Medical Decision Making 43-year-old female with a past medical history of IDDM, bronchitis, kidney stones, UTI, anxiety, chronic back pain presents for multiple complaints. Patient states she is having urinary frequency, foul-smelling urine, and dark urine for the past 2 days. States she is also having worsening of her lower chronic back pain. Denies any red flag symptoms of back pain. Denies any saddle anesthesia, bladder or bowel changes, weakness or new paresthesias in lower extremities, fevers or chills. No CVA tenderness on exam. Generalized low back tenderness. Urinalysis was obtained which does show 49 white blood cells with large leukocyte esterase and positive nitrites. This is likely the cause of patient's symptoms. CBC 12.9 edges ago secondary to urinary tract infection. CMP unremarkable. Given worsening back pain and history of kidney stones CT of the abdomen and pelvis was ordered which shows no obstructing stones hydronephrosis or hydroureter. At this time given back pain and urinary tract infection patient will be treated as a cystitis versus pyelonephritis. Patient will be treated with Cipro. Patient will follow up with primary care and return if she has any worsening symptoms. Urine culture pending.I discussed this case with attending Dr. Rowland who agrees with this assessment and treatment plan. - Lab Data Result diagrams: 01/01/19 12:42 01/01/19 12:42 Lab Results 01/01/19 01/01/19 01/01/19 Range/Units 12:42 12:42 12:42 WBC 12.9 H (3.8-10.6) k/uL RBC 5.63 H (3.80-5.40) m/uL Hgb 17.4 H (11.4-16.0) gm/dL Hct 49.2 H (34.0-46.0) % MCV 87.4 (80.0-100.0) fL MCH 31.0 (25.0-35.0) pg MCHC 35.5 (31.0-37.0) g/dL RDW 13.6 (11.5-15.5) % Plt Count 236 (150-450) k/uL Neutrophils % 74 % Lymphocytes % 15 % Monocytes % 6 % Eosinophils % 2 % Basophils % 1 % Neutrophils # 9.6 H (1.3-7.7) k/uL Lymphocytes # 2.0 (1.0-4.8) k/uL Monocytes # 0.7 (0-1.0) k/uL Eosinophils # 0.3 (0-0.7) k/uL Basophils # 0.2 (0-0.2) k/uL Sodium 137 (137-145) mmol/L Potassium 4.6 (3.5-5.1) mmol/L Chloride 105 (98-107) mmol/L Carbon Dioxide 17 L (22-30) mmol/L Anion Gap 15 mmol/L BUN 14 (7-17) mg/dL Creatinine 0.41 L (0.52-1.04) mg/dL Est GFR (CKD-EPI)AfAm >90 (>60 ml/min/1.73 sqM) Est GFR (CKD-EPI)NonAf >90 (>60 ml/min/1.73 sqM) Glucose 261 H (74-99) mg/dL Plasma Lactic Acid Arnaldo 1.9 (0.7-2.0) mmol/L Calcium 9.4 (8.4-10.2) mg/dL Total Bilirubin 0.9 (0.2-1.3) mg/dL AST 30 (14-36) U/L ALT 13 (9-52) U/L Alkaline Phosphatase 94 (38-126) U/L Total Protein 7.9 (6.3-8.2) g/dL Albumin 4.4 (3.5-5.0) g/dL Amylase 49 (30-110) U/L Lipase 106 (23-300) U/L Urine Color Urine Appearance (Clear) Urine pH (5.0-8.0) Ur Specific [place] (1.001-1.035) Urine Protein (Negative) Urine Glucose (UA) (Negative) Urine Ketones (Negative) Urine Blood (Negative) Urine Nitrite (Negative) Urine Bilirubin (Negative) Urine Urobilinogen (<2.0) mg/dL Ur Leukocyte Esterase (Negative) Urine RBC (0-5) /hpf Urine WBC (0-5) /hpf Ur Squamous Epith Cells (0-4) /hpf Urine Bacteria (None) /hpf Urine Mucus (None) /hpf Urine HCG, Qual (Not Detectd) 01/01/19 01/01/19 Range/Units 13:22 13:22 WBC (3.8-10.6) k/uL RBC (3.80-5.40) m/uL Hgb (11.4-16.0) gm/dL Hct (34.0-46.0) % MCV (80.0-100.0) fL MCH (25.0-35.0) pg MCHC (31.0-37.0) g/dL RDW (11.5-15.5) % Plt Count (150-450) k/uL Neutrophils % % Lymphocytes % % Monocytes % % Eosinophils % % Basophils % % Neutrophils # (1.3-7.7) k/uL Lymphocytes # (1.0-4.8) k/uL Monocytes # (0-1.0) k/uL Eosinophils # (0-0.7) k/uL Basophils # (0-0.2) k/uL Sodium (137-145) mmol/L Potassium (3.5-5.1) mmol/L Chloride (98-107) mmol/L Carbon Dioxide (22-30) mmol/L Anion Gap mmol/L BUN (7-17) mg/dL Creatinine (0.52-1.04) mg/dL Est GFR (CKD-EPI)AfAm (>60 ml/min/1.73 sqM) Est GFR (CKD-EPI)NonAf (>60 ml/min/1.73 sqM) Glucose (74-99) mg/dL Plasma Lactic Acid Arnaldo (0.7-2.0) mmol/L Calcium (8.4-10.2) mg/dL Total Bilirubin (0.2-1.3) mg/dL AST (14-36) U/L ALT (9-52) U/L Alkaline Phosphatase (38-126) U/L Total Protein (6.3-8.2) g/dL Albumin (3.5-5.0) g/dL Amylase (30-110) U/L Lipase (23-300) U/L Urine Color Yellow Urine Appearance Cloudy H (Clear) Urine pH 5.5 (5.0-8.0) Ur Specific [place] 1.025 (1.001-1.035) Urine Protein 1+ H (Negative) Urine Glucose (UA) 1+ H (Negative) Urine Ketones 1+ H (Negative) Urine Blood Moderate H (Negative) Urine Nitrite Positive H (Negative) Urine Bilirubin Negative (Negative) Urine Urobilinogen <2.0 (<2.0) mg/dL Ur Leukocyte Esterase Large H (Negative) Urine RBC 4 (0-5) /hpf Urine WBC 49 H (0-5) /hpf Ur Squamous Epith Cells 10 H (0-4) /hpf Urine Bacteria Many H (None) /hpf Urine Mucus Many H (None) /hpf Urine HCG, Qual Not Detected (Not Detectd) Disposition Clinical Impression: Urinary tract infection Disposition: HOME SELF-CARE Condition: Good Instructions (If sedation given, give patient instructions): Urinary Tract Infection in Women (ED) Additional Instructions: Please take antibiotic as directed. This was prescribed to [facility] on . Drink plenty of fluids. Monitor blood glucose levels closely with this infection. Please follow-up with primary care in 1-2 days. Please return to the emergency department if you have any worsening symptoms. Prescriptions: Ciprofloxacin HCl [Cipro] 500 mg PO BID 7 Days #14 tab Is patient prescribed a controlled substance at d/c from ED?: No Referrals: Mateus Curtis DO [Primary Care Provider] - 1-2 days Time of Disposition: 15:47
[2019-01-01 12:56] VITALS: RESP 18
[2019-01-01 13:03] LABS: Basophils # (A) 0.2 k/uL (0-0.2); Basophils % (A) 1 %; Eosinophils # (A) 0.3 k/uL (0-0.7); Eosinophils % (A) 2 %; HCT 49.2 % (34.0-46.0); HGB 17.4 gm/dL (11.4-16.0); Lymphocytes % (A) 15 %; MCHC 35.5 g/dL (31.0-37.0); MCV 87.4 fL (80.0-100.0); Mean Platelet Volume 7.5; Monocytes # (A) 0.7 k/uL (0-1.0); Monocytes % (A) 6 %; Neutrophils # (A) 9.6 k/uL (1.3-7.7); Neutrophils % (A) 74 %; Platelet Count 236 k/uL (150-450); RBC 5.63 m/uL (3.80-5.40); RDW 13.6 % (11.5-15.5); WBC 12.9 k/uL (3.8-10.6)
[2019-01-01 13:08] LABS: ALT 13 U/L (9-52); AST 30 U/L (14-36); African American GFR (CKD) >90 (>60 ml/min/1.73 sqM); Albumin 4.4 g/dL (3.5-5.0); Alkaline Phosphatase 94 U/L (38-126); Amylase 49 U/L (30-110); Anion Gap 15 mmol/L; Blood Urea Nitrogen 14 mg/dL (7-17); Calcium 9.4 mg/dL (8.4-10.2); Carbon Dioxide 17 mmol/L (22-30); Chloride 105 mmol/L (98-107); Glucose 261 mg/dL (74-99); Potassium 4.6 mmol/L (3.5-5.1); Sodium 137 mmol/L (137-145); Total Bilirubin 0.9 mg/dL (0.2-1.3); Total Protein 7.9 g/dL (6.3-8.2)
[2019-01-01 14:40] LABS: Appearance,Urine Cloudy (Clear); Bacteria,Urine Many /hpf; Bilirubin,Urine Negative (Negative); Blood,Urine Moderate (Negative); Color,Urine Yellow; Glucose,Urine (UA) 1+ (Negative); Ketones,Urine 1+ (Negative); Leukocyte Esterase,Urine Large (Negative); Mucus,Urine Many /hpf; Nitrite,Urine Positive (Negative); PH, Urine 5.5 (5.0-8.0); Protein,Urine 1+ (Negative); RBC,Urine 4 /hpf (0-5); Specific Gravity,Urine 1.025 (1.001-1.035); Squamous Epithelial Cell,Urine 10 /hpf (0-4); Urobilinogen,Urine <2.0 mg/dL (<2.0); WBC,Urine 49 /hpf (0-5)
[2019-01-01] MEDS ORDERED: cefTRIAXone IN SWFI 1,000 MG/10 ML SYRINGE IVP STA (14:44)
--- NOTE | 2019-01-01 15:20 | CT ---
EXAMINATION TYPE: CT abdomen pelvis wo con DATE OF EXAM: 01/01/2019 COMPARISON: None INDICATION: Bilateral flank pain and hematuria. DLP: 1119.4 mGycm, Automated exposure control for dose reduction was used. CONTRAST: 0 mL of Isovue 300. Study performed without Oral Contrast TECHNIQUE: Axial images were obtained from above the diaphragm to the pubic rami in the axial plane a t 5 mm thick sections. Reconstructed images are reviewed on the computer in the coronal plane. FINDINGS: Limited CT sections are obtained the lung bases. The lung bases are clear. CT ABDOMEN: Liver: Normal Spleen: Normal Pancreas: Normal Adrenal glands: The adrenal glands are normal. Gallbladder: Surgically absent. Kidneys: No masses are evident. No hydronephrosis is present. No cysts are present. There are 0.2 and 0.4 cm calcifications at the inferior pole left kidney without evidence of obstruction. No hydron ephrosis is evident. No hydroureter is evident. Aorta: Vascular calcification is within the aorta. Inferior vena cava: Normal. CT PELVIS: Loops of bowel within the abdomen and pelvis are normal. Study is without oral contrast limiting bowel evaluation. Appendix: Normal as visualized. Urinary bladder: Decompressed with limited evaluation. Phleboliths are within the lower pelvis. Genitourinary structures: There is a small left ovarian cyst. Hypodensity extends from the posterior left uterus may be a small 2.1 cm fibroid. Osseous structures: No suspicious lytic or sclerotic lesions. IMPRESSIONS: 1. Nonobstructing inferior pole left renal stones. 2. No hydronephrosis or hydroureter. 3. Left ovarian cyst. 4. Hypodense uterine fibroid posterior left uterus
[2019-01-01 16:04] VITALS: BP 120/78; PULSE 72
== END 2019-01-01 16:03 | disposition home or self-care (01) ==
LOC: EC 11:35
DX: N39.0 Urinary tract infection, site not specified (principal); F41.9 Anxiety disorder, unspecified; F17.200 Nicotine dependence, unspecified, uncomplicated; Z79.899 Other long term (current) drug therapy; Z88.1 Allergy status to other antibiotic agents; Z91.030 Bee allergy status; Z87.442 Personal history of urinary calculi
CPT/HCPCS: 36415; 80053; 82150; 83605; 83690; 85025; 81001; 81025; 87040; 87086; 74176; 99284; 96374; 96375 ×2; 96361 ×3; J2405; J0696; J1885; 87077; 87186

== ENCOUNTER 2019-01-14 15:11 | Emergency (ER) | payer OTHER ==
[2019-01-14] MEDS ORDERED: SODIUM CHLORIDE 0.9% 1,000 ML IV STA (15:25)
[2019-01-14] MEDS ORDERED: KETOROLAC 30 MG/ML 1 ML VIAL IVP STA (15:50)
[2019-01-14 16:00] LABS: Basophils # (A) 0.2 k/uL (0-0.2); Basophils % (A) 1 %; Eosinophils # (A) 0.5 k/uL (0-0.7); Eosinophils % (A) 3 %; HCT 53.8 % (34.0-46.0); HGB 18.3 gm/dL (11.4-16.0); Lymphocytes # (A) 2.9 k/uL (1.0-4.8); Lymphocytes % (A) 19 %; MCH 31.2 pg (25.0-35.0); MCHC 33.9 g/dL (31.0-37.0); Mean Platelet Volume 7.1; Monocytes # (A) 0.7 k/uL (0-1.0); Monocytes % (A) 5 %; Neutrophils # (A) 10.5 k/uL (1.3-7.7); Neutrophils % (A) 70 %; Platelet Count 317 k/uL (150-450); RBC 5.85 m/uL (3.80-5.40); RDW 13.2 % (11.5-15.5); WBC 14.9 k/uL (3.8-10.6)
--- NOTE | 2019-01-14 16:01 | ED ---
General Adult HPI - General Chief complaint: Abdominal Pain Stated complaint: Poss Kidney Infection Time Seen by Provider: 01/14/19 15:24 Source: patient, RN notes reviewed Mode of arrival: ambulatory Limitations: no limitations - History of Present Illness Initial comments: 43-year-old female with a past medical history IDDM, bronchitis, kidney stones, UTI, anxiety presents to the emergency determine for a chief complaint of urinary tract infection. Patient states that she has not been feeling well for the past week or so. States that she was initially urinary tract infection through the ER and finish the antibiotic a few days ago. States she had a repeat urine test that showed UTI at her physician's office. Patient's culture is reviewed from 01/01/2019 that showed sensitive to ciprofloxacin that was prescribed. Patient denies any back pain. States that her sugars have been up to 300.Patient has no other complaints at this time including shortness of breath, chest pain, nausea or vomiting, headache, or visual changes. - Related Data Home Medications Medication Instructions Recorded Confirmed Acetaminophen Tab [Tylenol] 650 mg PO Q4H PRN 04/30/16 05/01/16 Citalopram Hydrobromide 20 mg PO DAILY 05/01/16 05/01/16 [Citalopram HBr] Previous Rx's Medication Instructions Recorded Ferrous Sulfate [Iron (65 MG 325 mg PO W/LUNCH #30 tab 05/02/16 Elemental)] INSULIN LISPRO (humaLOG) [humaLOG] 0 unit SQ ACHS vial 05/02/16 Insulin Glargine,Hum.rec.anlog 30 unit SQ HS #2 ml 05/02/16 [Lantus Solostar] Insulin Lispro [humaLOG Kwikpen] 10 unit SQ AC-TID #3 insuln.pen 05/02/16 Nicotine 14Mg/24Hr Patch [Habitrol] 1 patch TRANSDERM DAILY #30 patch 05/02/16 Ciprofloxacin HCl [Cipro] 500 mg PO BID 7 Days #14 tab 01/01/19 Cephalexin [Keflex] 500 mg PO Q6HR 10 Days #40 cap 01/14/19 Ondansetron [Zofran ODT] 4 mg PO Q8HR PRN #15 tab 01/14/19 Allergies Allergy/AdvReac Type Severity Reaction Status Date / Time clarithromycin [From Biaxin] Allergy Unknown Verified 01/14/19 15:20 BBE STINGS Allergy Unknown Uncoded 01/14/19 15:20 MACULIDE Allergy Unknown Uncoded 01/14/19 15:20 Review of Systems ROS Statement: Those systems with pertinent positive or pertinent negative responses have been documented in the HPI. ROS Other: All systems not noted in ROS Statement are negative. Past Medical History Past Medical History: Diabetes Mellitus, Pneumonia Additional Past Medical History / Comment(s): BRONCHITIS, KIDNEY STONES,UTI, ANXIETY ,BIPOLAR DEPRESSION chronic back pain History of Any Multi-Drug Resistant Organisms: None Reported Past Surgical History: Cholecystectomy Additional Past Surgical History / Comment(s): PAST MED HX LISTED CERCLAGE PROCEDURE X2 Past Anesthesia/Blood Transfusion Reactions: Postoperative Nausea & Vomiting (PONV) Past Psychological History: Anxiety, Bipolar, Depression Smoking Status: Current every day smoker Past Alcohol Use History: None Reported Past Drug Use History: None Reported - Past Family History Mother Family Medical History: Congestive Heart Failure (CHF), Diabetes Mellitus, Hyperlipidemia, Hypertension Additional Family Medical History / Comment(s): KIDNEY FAILURE Father Family Medical History: Diabetes Mellitus Additional Family Medical History / Comment(s): COLLAPSED LUNG General Exam Limitations: no limitations General appearance: alert, in no apparent distress Head exam: Present: atraumatic, normocephalic, normal inspection Eye exam: Present: normal appearance, PERRL, EOMI. Absent: scleral icterus, conjunctival injection, periorbital swelling ENT exam: Present: normal exam, mucous membranes moist Neck exam: Present: normal inspection, full ROM. Absent: tenderness, meningismus, lymphadenopathy Respiratory exam: Present: normal lung sounds bilaterally. Absent: respiratory distress, wheezes, rales, rhonchi, stridor Cardiovascular Exam: Present: regular rate, normal rhythm, normal heart sounds. Absent: systolic murmur, diastolic murmur, rubs, gallop, clicks GI/Abdominal exam: Present: soft, tenderness (Generalized abdominal tenderness), normal bowel sounds. Absent: distended, guarding, rebound, rigid Neurological exam: Present: alert Psychiatric exam: Present: normal affect, normal mood Course Vital Signs 01/14/19 01/14/19 15:19 16:55 Temperature 98 F Pulse Rate 122 H 89 Respiratory 20 18 Rate Blood Pressure 133/85 O2 Sat by Pulse 97 Oximetry Medical Decision Making - Medical Decision Making Patient initially tachycardic however this did improve throughout her stay with fluids and rest. On exam patient does have mild diffuse abdominal tenderness without any guarding. This is consistent with last exam. States pain has been the same for weeks. No CVA tenderness. CBC revealed a white blood cell count of 14.9 which is likely reactive in nature. Hemoglobin is 18.3. Likely hemoconcentrated as lactic acid is 2.1. Patient given fluids. Glucose 227, patient is an insulin dependent diabetic. Urinalysis shows 182 red blood cells with 12 white cells. Culture from primary care yesterday is pending. However as patient is having urinary symptoms she will be started on an new antibiotic as she has finished her Cipro. CT was obtained to 2 weeks ago for the same symptoms and uterine fibroids and ovarian cysts were seen. There was a left renal stone however no ureteral stones. Given blood in the urine patient was given a referral to urology and she may need a cystoscopy performed. She will follow up with Dr. Hawk pending urine culture. - Lab Data Result diagrams: 01/14/19 15:40 01/14/19 15:40 Lab Results 01/14/19 01/14/19 01/14/19 Range/Units 15:00 15:40 15:40 WBC (3.8-10.6) k/uL RBC (3.80-5.40) m/uL Hgb (11.4-16.0) gm/dL Hct (34.0-46.0) % MCV (80.0-100.0) fL MCH (25.0-35.0) pg MCHC (31.0-37.0) g/dL RDW (11.5-15.5) % Plt Count (150-450) k/uL Neutrophils % % Lymphocytes % % Monocytes % % Eosinophils % % Basophils % % Neutrophils # (1.3-7.7) k/uL Lymphocytes # (1.0-4.8) k/uL Monocytes # (0-1.0) k/uL Eosinophils # (0-0.7) k/uL Basophils # (0-0.2) k/uL PT 9.4 (9.0-12.0) sec INR 0.8 (<1.2) APTT 21.9 L (22.0-30.0) sec Sodium 140 (137-145) mmol/L Potassium 4.5 (3.5-5.1) mmol/L Chloride 104 (98-107) mmol/L Carbon Dioxide 19 L (22-30) mmol/L Anion Gap 17 mmol/L BUN 15 (7-17) mg/dL Creatinine 0.59 (0.52-1.04) mg/dL Est GFR (CKD-EPI)AfAm >90 (>60 ml/min/1.73 sqM) Est GFR (CKD-EPI)NonAf >90 (>60 ml/min/1.73 sqM) Glucose 227 H (74-99) mg/dL Plasma Lactic Acid Arnaldo (0.7-2.0) mmol/L Calcium 10.4 H (8.4-10.2) mg/dL Total Bilirubin 0.5 (0.2-1.3) mg/dL AST 18 (14-36) U/L ALT 19 (9-52) U/L Alkaline Phosphatase 110 (38-126) U/L Total Protein 8.8 H (6.3-8.2) g/dL Albumin 5.1 H (3.5-5.0) g/dL Amylase 50 (30-110) U/L Lipase 136 (23-300) U/L Urine Color Yellow Urine Appearance Clear (Clear) Urine pH 5.5 (5.0-8.0) Ur Specific [place] 1.016 (1.001-1.035) Urine Protein Trace H (Negative) Urine Glucose (UA) Negative (Negative) Urine Ketones 1+ H (Negative) Urine Blood Large H (Negative) Urine Nitrite Negative (Negative) Urine Bilirubin Negative (Negative) Urine Urobilinogen <2.0 (<2.0) mg/dL Ur Leukocyte Esterase Trace H (Negative) Urine RBC >182 H (0-5) /hpf Urine WBC 12 H (0-5) /hpf Ur Squamous Epith Cells 1 (0-4) /hpf Hyaline Casts 4 H (0-2) /lpf Urine Mucus Rare H (None) /hpf 01/14/19 01/14/19 Range/Units 15:40 15:40 WBC 14.9 H (3.8-10.6) k/uL RBC 5.85 H (3.80-5.40) m/uL Hgb 18.3 H (11.4-16.0) gm/dL Hct 53.8 H (34.0-46.0) % MCV 92.0 (80.0-100.0) fL MCH 31.2 (25.0-35.0) pg MCHC 33.9 (31.0-37.0) g/dL RDW 13.2 (11.5-15.5) % Plt Count 317 (150-450) k/uL Neutrophils % 70 % Lymphocytes % 19 % Monocytes % 5 % Eosinophils % 3 % Basophils % 1 % Neutrophils # 10.5 H (1.3-7.7) k/uL Lymphocytes # 2.9 (1.0-4.8) k/uL Monocytes # 0.7 (0-1.0) k/uL Eosinophils # 0.5 (0-0.7) k/uL Basophils # 0.2 (0-0.2) k/uL PT (9.0-12.0) sec INR (<1.2) APTT (22.0-30.0) sec Sodium (137-145) mmol/L Potassium (3.5-5.1) mmol/L Chloride (98-107) mmol/L Carbon Dioxide (22-30) mmol/L Anion Gap mmol/L BUN (7-17) mg/dL Creatinine (0.52-1.04) mg/dL Est GFR (CKD-EPI)AfAm (>60 ml/min/1.73 sqM) Est GFR (CKD-EPI)NonAf (>60 ml/min/1.73 sqM) Glucose (74-99) mg/dL Plasma Lactic Acid Arnaldo 2.1 H* (0.7-2.0) mmol/L Calcium (8.4-10.2) mg/dL Total Bilirubin (0.2-1.3) mg/dL AST (14-36) U/L ALT (9-52) U/L Alkaline Phosphatase (38-126) U/L Total Protein (6.3-8.2) g/dL Albumin (3.5-5.0) g/dL Amylase (30-110) U/L Lipase (23-300) U/L Urine Color Urine Appearance (Clear) Urine pH (5.0-8.0) Ur Specific [place] (1.001-1.035) Urine Protein (Negative) Urine Glucose (UA) (Negative) Urine Ketones (Negative) Urine Blood (Negative) Urine Nitrite (Negative) Urine Bilirubin (Negative) Urine Urobilinogen (<2.0) mg/dL Ur Leukocyte Esterase (Negative) Urine RBC (0-5) /hpf Urine WBC (0-5) /hpf Ur Squamous Epith Cells (0-4) /hpf Hyaline Casts (0-2) /lpf Urine Mucus (None) /hpf Disposition Clinical Impression: Dysuria, Urinary tract infection, Hematuria Disposition: HOME SELF-CARE Condition: Good Instructions (If sedation given, give patient instructions): Urinary Tract Infection in Women (ED) Additional Instructions: Please take antibiotic as directed. Please follow-up with primary care in 1-2 days for urine culture results. Follow up with urology for hematuria. Return to the emergency department if you have any worsening symptoms. Prescriptions: Cephalexin [Keflex] 500 mg PO Q6HR 10 Days #40 cap Ondansetron [Zofran ODT] 4 mg PO Q8HR PRN #15 tab PRN Reason: Nausea Is patient prescribed a controlled substance at d/c from ED?: No Referrals: Mateus Curtis DO [Primary Care Provider] - 1-2 days Danish Brown MD [STAFF PHYSICIAN] - 1-2 days Time of Disposition: 17:15
[2019-01-14 16:04] LABS: ALT 19 U/L (9-52); AST 18 U/L (14-36); African American GFR (CKD) >90 (>60 ml/min/1.73 sqM); Albumin 5.1 g/dL (3.5-5.0); Alkaline Phosphatase 110 U/L (38-126); Amylase 50 U/L (30-110); Anion Gap 17 mmol/L; Blood Urea Nitrogen 15 mg/dL (7-17); Calcium 10.4 mg/dL (8.4-10.2); Carbon Dioxide 19 mmol/L (22-30); Chloride 104 mmol/L (98-107); Glucose 227 mg/dL (74-99); Potassium 4.5 mmol/L (3.5-5.1); Sodium 140 mmol/L (137-145); Total Bilirubin 0.5 mg/dL (0.2-1.3); Total Protein 8.8 g/dL (6.3-8.2)
[2019-01-14 16:10] LABS: INR 0.8 (<1.2); Prothrombin Time 9.4 sec (9.0-12.0)
[2019-01-14 16:10] LABS: Appearance,Urine Clear (Clear); Bilirubin,Urine Negative (Negative); Blood,Urine Large (Negative); Color,Urine Yellow; Glucose,Urine (UA) Negative (Negative); Hyaline Casts,Urine 4 /lpf (0-2); Ketones,Urine 1+ (Negative); Leukocyte Esterase,Urine Trace (Negative); Mucus,Urine Rare /hpf; Nitrite,Urine Negative (Negative); PH, Urine 5.5 (5.0-8.0); Protein,Urine Trace (Negative); RBC,Urine >182 /hpf (0-5); Specific Gravity,Urine 1.016 (1.001-1.035); Squamous Epithelial Cell,Urine 1 /hpf (0-4); Urobilinogen,Urine <2.0 mg/dL (<2.0); WBC,Urine 12 /hpf (0-5)
[2019-01-14 16:16] LABS: Partial Thromboplastin Time 21.9 sec (22.0-30.0)
[2019-01-14] MEDS ORDERED: ONDANSETRON 4 MG/2 ML VIAL IVP STA (17:12)
[2019-01-14 18:05] VITALS: BP 146/74; PULSE 82; RESP 17; TEMP 98.7
== END 2019-01-14 18:05 | disposition home or self-care (01) ==
LOC: EC 15:11
DX: N39.0 Urinary tract infection, site not specified (principal); E11.9 Type 2 diabetes mellitus without complications; F41.9 Anxiety disorder, unspecified; F31.9 Bipolar disorder, unspecified; F17.200 Nicotine dependence, unspecified, uncomplicated; Z79.899 Other long term (current) drug therapy; Z88.1 Allergy status to other antibiotic agents; Z91.030 Bee allergy status; Z91.09 Other allergy status, other than to drugs and biological substances; Z87.442 Personal history of urinary calculi; Z90.49 Acquired absence of other specified parts of digestive tract
CPT/HCPCS: 36415; 80053; 82150; 83605; 83690; 85025; 85610; 85730; 81001; 99284; 96374; 96375; 96361; J2405; J1885

== ENCOUNTER 2019-05-01 14:16 | Emergency (ER) | payer OTHER ==
[2019-05-01 14:24] VITALS: RESP 18
[2019-05-01] MEDS ORDERED: SODIUM CHLORIDE 0.9% 2,000 ML IV STA (15:34)
[2019-05-01] MEDS ORDERED: KETOROLAC 30 MG/ML 1 ML VIAL IVP STA (15:36)
[2019-05-01] MEDS ORDERED: ONDANSETRON 4 MG/2 ML VIAL IVP STA (15:36)
[2019-05-01 16:03] LABS: Glucose,Whole Blood 172 mg/dL (75-99)
[2019-05-01 16:21] LABS: ALT 19 U/L (4-34); AST 24 U/L (14-36); African American GFR (CKD) >90 (>60 ml/min/1.73 sqM); Albumin 4.2 g/dL (3.5-5.0); Alkaline Phosphatase 77 U/L (38-126); Amylase 37 U/L (30-110); Anion Gap 10 mmol/L; Blood Urea Nitrogen 17 mg/dL (7-17); Carbon Dioxide 20 mmol/L (22-30); Chloride 108 mmol/L (98-107); Glucose 174 mg/dL (74-99); Non-African American GFR(CKD) >90 (>60 ml/min/1.73 sqM); Potassium 4.4 mmol/L (3.5-5.1); Sodium 138 mmol/L (137-145); Total Bilirubin 0.8 mg/dL (0.2-1.3); Total Protein 7.2 g/dL (6.3-8.2)
--- NOTE | 2019-05-01 16:29 | XR ---
EXAMINATION TYPE: XR KUB DATE OF EXAM: 05/01/2019 COMPARISON: 03/31/2012 HISTORY: Nausea and vomiting TECHNIQUE: 2 views upright FINDINGS: Bowel gas pattern is normal. There is no sign of intestinal obstruction or pneumoperitoneum . There are clips from cholecystectomy. There are no pathologic calcifications over the kidneys. Lung bases are clear. There is no evidence of a mass. IMPRESSION: Nonacute abdomen. No change.
--- NOTE | 2019-05-01 16:30 | XR ---
EXAMINATION TYPE: XR chest 2V DATE OF EXAM: 05/01/2019 COMPARISON: NONE HISTORY: Nausea and vomiting TECHNIQUE: FINDINGS: Heart and mediastinum are normal. Lungs are clear of infiltrate. Pulmonary vascularity is n ormal. Bony thorax appears normal. There is no pleural effusion. IMPRESSION: Normal chest
[2019-05-01 16:32] LABS: Appearance,Urine Clear (Clear); Bilirubin,Urine Negative (Negative); Blood,Urine Negative (Negative); Color,Urine Yellow; Glucose,Urine (UA) Negative (Negative); Ketones,Urine Trace (Negative); Leukocyte Esterase,Urine Trace (Negative); Mucus,Urine Rare /hpf; Nitrite,Urine Negative (Negative); Protein,Urine Trace (Negative); RBC,Urine <1 /hpf (0-5); Specific Gravity,Urine 1.017 (1.001-1.035); Squamous Epithelial Cell,Urine 1 /hpf (0-4); Urobilinogen,Urine <2.0 mg/dL (<2.0); WBC,Urine 2 /hpf (0-5)
[2019-05-01 16:34] LABS: Basophils # (A) 0.2 k/uL (0-0.2); Basophils % (A) 2 %; Eosinophils # (A) 0.2 k/uL (0-0.7); Eosinophils % (A) 3 %; HCT 45.7 % (34.0-46.0); HGB 15.3 gm/dL (11.4-16.0); Lymphocytes # (A) 1.1 k/uL (1.0-4.8); Lymphocytes % (A) 11 %; MCH 30.2 pg (25.0-35.0); MCHC 33.4 g/dL (31.0-37.0); MCV 90.5 fL (80.0-100.0); Mean Platelet Volume 8.9; Monocytes # (A) 0.5 k/uL (0-1.0); Monocytes % (A) 6 %; Neutrophils # (A) 7.1 k/uL (1.3-7.7); Neutrophils % (A) 77 %; Platelet Count 236 k/uL (150-450); RBC 5.05 m/uL (3.80-5.40); RDW 13.2 % (11.5-15.5); WBC 9.2 k/uL (3.8-10.6)
--- NOTE | 2019-05-01 17:03 | ED ---
General Adult HPI - General Chief complaint: Nausea/Vomiting/Diarrhea Stated complaint: Fever, N/V/D Time Seen by Provider: 05/01/19 15:12 Source: patient, RN notes reviewed Mode of arrival: ambulatory Limitations: no limitations - History of Present Illness Initial comments: 43-year-old female with a past medical history of bronchitis, kidney stones, U TI, anxiety, bipolar, chronic back pain presents for nausea vomiting diarrhea. Patient has had nausea vomiting diarrhea for 2 days. States she has some mild upper abdominal cramping with this route denies any lower abdominal pain. Denies fevers at home but admits to chills. Admits to mild cough as well. Patient is able to keep some fluids down. Patient has no other complaints at this time including shortness of breath, chest pain, headache, or visual changes. - Related Data Home Medications Medication Instructions Recorded Confirmed Acetaminophen Tab [Tylenol] 650 mg PO Q4H PRN 04/30/16 05/01/16 Citalopram Hydrobromide 20 mg PO DAILY 05/01/16 05/01/16 [Citalopram HBr] Previous Rx's Medication Instructions Recorded Ferrous Sulfate [Iron (65 MG 325 mg PO W/LUNCH #30 tab 05/02/16 Elemental)] INSULIN LISPRO (humaLOG) [humaLOG] 0 unit SQ ACHS vial 05/02/16 Insulin Glargine,Hum.rec.anlog 30 unit SQ HS #2 ml 05/02/16 [Lantus Solostar] Insulin Lispro [humaLOG Kwikpen] 10 unit SQ AC-TID #3 insuln.pen 05/02/16 Nicotine 14Mg/24Hr Patch [Habitrol] 1 patch TRANSDERM DAILY #30 patch 05/02/16 Ciprofloxacin HCl [Cipro] 500 mg PO BID 7 Days #14 tab 01/01/19 Cephalexin [Keflex] 500 mg PO Q6HR 10 Days #40 cap 01/14/19 Ondansetron [Zofran ODT] 4 mg PO Q8HR PRN #15 tab 01/14/19 Allergies Allergy/AdvReac Type Severity Reaction Status Date / Time clarithromycin [From Biaxin] Allergy Unknown Verified 05/01/19 14:24 BBE STINGS Allergy Unknown Uncoded 05/01/19 14:24 MACULIDE Allergy Unknown Uncoded 05/01/19 14:24 Review of Systems ROS Statement: Those systems with pertinent positive or pertinent negative responses have been documented in the HPI. ROS Other: All systems not noted in ROS Statement are negative. Past Medical History Past Medical History: Diabetes Mellitus, Pneumonia Additional Past Medical History / Comment(s): BRONCHITIS, KIDNEY STONES,UTI, ANXIETY ,BIPOLAR DEPRESSION chronic back pain History of Any Multi-Drug Resistant Organisms: None Reported Past Surgical History: Cholecystectomy Additional Past Surgical History / Comment(s): PAST MED HX LISTED CERCLAGE PROCEDURE X2 Past Anesthesia/Blood Transfusion Reactions: Postoperative Nausea & Vomiting (PONV) Past Psychological History: Anxiety, Bipolar, Depression Smoking Status: Current every day smoker Past Alcohol Use History: None Reported Past Drug Use History: None Reported - Past Family History Mother Family Medical History: Congestive Heart Failure (CHF), Diabetes Mellitus, Hype rlipidemia, Hypertension Additional Family Medical History / Comment(s): KIDNEY FAILURE Father Family Medical History: Diabetes Mellitus Additional Family Medical History / Comment(s): COLLAPSED LUNG General Exam Limitations: no limitations General appearance: alert, in no apparent distress Head exam: Present: atraumatic, normocephalic, normal inspection Eye exam: Present: normal appearance, PERRL, EOMI. Absent: scleral icterus, conjunctival injection, periorbital swelling ENT exam: Present: normal exam, mucous membranes moist Neck exam: Present: normal inspection, full ROM. Absent: tenderness, meningismus, lymphadenopathy Respiratory exam: Present: normal lung sounds bilaterally. Absent: respiratory distress, wheezes, rales, rhonchi, stridor Cardiovascular Exam: Present: regular rate, normal rhythm, normal heart sounds. Absent: systolic murmur, diastolic murmur, rubs, gallop, clicks GI/Abdominal exam: Present: soft, normal bowel sounds. Absent: distended, ten derness (O tenderness in the epigastric or upper abdominal area. No lower abdominal area. Patient does have nausea when palpating the epigastric area.), guarding, rebound, rigid Neurological exam: Present: alert Course Vital Signs 05/01/19 05/01/19 14:23 15:04 Temperature 98.0 F 98.6 F Pulse Rate 110 H Respiratory 18 Rate Blood Pressure 111/63 O2 Sat by Pulse 98 Oximetry Medical Decision Making - Medical Decision Making Patient presents for nausea vomiting diarrhea 2-3 days. Bkg-yhsfias-hdtfxzlhh diabetic. Patient is able to tolerate some oral intake at home. Abdomen is completely nontender. CBC is unremarkable. CMP unremarkable as well. Mild dehydration. Trace ketones in the urine, patient given fluids. Influenza is negative. XR KUB shows a non acute abdomen. No change. Chest x-ray shows a normal chest. Patient reevaluated, nausea has improved. Patient will be discharged home with a starter pack of Zofran given it is late on a Thursday. She will follow up with primary care in 1-2 days or to return here if she has any worsening symptoms. - Lab Data Result diagrams: 05/01/19 15:59 05/01/19 15:59 Lab Results 05/01/19 05/01/19 05/01/19 Range/Units 15:43 15:59 15:59 WBC 9.2 (3.8-10.6) k/uL RBC 5.05 (3.80-5.40) m/uL Hgb 15.3 (11.4-16.0) gm/dL Hct 45.7 (34.0-46.0) % MCV 90.5 (80.0-100.0) fL MCH 30.2 (25.0-35.0) pg MCHC 33.4 (31.0-37.0) g/dL RDW 13.2 (11.5-15.5) % Plt Count 236 (150-450) k/uL Neutrophils % 77 % Lymphocytes % 11 % Monocytes % 6 % Eosinophils % 3 % Basophils % 2 % Neutrophils # 7.1 (1.3-7.7) k/uL Lymphocytes # 1.1 (1.0-4.8) k/uL Monocytes # 0.5 (0-1.0) k/uL Eosinophils # 0.2 (0-0.7) k/uL Basophils # 0.2 (0-0.2) k/uL Sodium 138 (137-145) mmol/L Potassium 4.4 (3.5-5.1) mmol/L Chloride 108 H (98-107) mmol/L Carbon Dioxide 20 L (22-30) mmol/L Anion Gap 10 mmol/L BUN 17 (7-17) mg/dL Creatinine 0.50 L (0.52-1.04) mg/dL Est GFR (CKD-EPI)AfAm >90 (>60 ml/min/1.73 sqM) Est GFR (CKD-EPI)NonAf >90 (>60 ml/min/1.73 sqM) Glucose 174 H (74-99) mg/dL POC Glucose (mg/dL) 172 H (75-99) mg/dL POC Glu [employer] Florecita Ferrer Calcium 9.0 (8.4-10.2) mg/dL Total Bilirubin 0.8 (0.2-1.3) mg/dL AST 24 (14-36) U/L ALT 19 (4-34) U/L Alkaline Phosphatase 77 (38-126) U/L Total Protein 7.2 (6.3-8.2) g/dL Albumin 4.2 (3.5-5.0) g/dL Amylase 37 (30-110) U/L Lipase 65 (23-300) U/L Urine Color Urine Appearance (Clear) Urine pH (5.0-8.0) Ur Specific [place] (1.001-1.035) Urine Protein (Negative) Urine Glucose (UA) (Negative) Urine Ketones (Negative) Urine Blood (Negative) Urine Nitrite (Negative) Urine Bilirubin (Negative) Urine Urobilinogen (<2.0) mg/dL Ur Leukocyte Esterase (Negative) Urine RBC (0-5) /hpf Urine WBC (0-5) /hpf Ur Squamous Epith Cells (0-4) /hpf Urine Mucus (None) /hpf Urine HCG, Qual (Not Detectd) Influenza Type A RNA (Not Detectd) Influenza Type B (PCR) (Not Detectd) 05/01/19 05/01/19 05/01/19 Range/Units 15:59 15:59 15:59 WBC (3.8-10.6) k/uL RBC (3.80-5.40) m/uL Hgb (11.4-16.0) gm/dL Hct (34.0-46.0) % MCV (80.0-100.0) fL MCH (25.0-35.0) pg MCHC (31.0-37.0) g/dL RDW (11.5-15.5) % Plt Count (150-450) k/uL Neutrophils % % Lymphocytes % % Monocytes % % Eosinophils % % Basophils % % Neutrophils # (1.3-7.7) k/uL Lymphocytes # (1.0-4.8) k/uL Monocytes # (0-1.0) k/uL Eosinophils # (0-0.7) k/uL Basophils # (0-0.2) k/uL Sodium (137-145) mmol/L Potassium (3.5-5.1) mmol/L Chloride (98-107) mmol/L Carbon Dioxide (22-30) mmol/L Anion Gap mmol/L BUN (7-17) mg/dL Creatinine (0.52-1.04) mg/dL Est GFR (CKD-EPI)AfAm (>60 ml/min/1.73 sqM) Est GFR (CKD-EPI)NonAf (>60 ml/min/1.73 sqM) Glucose (74-99) mg/dL POC Glucose (mg/dL) (75-99) mg/dL POC Glu Construction Ironworker ID Calcium (8.4-10.2) mg/dL Total Bilirubin (0.2-1.3) mg/dL AST (14-36) U/L ALT (4-34) U/L Alkaline Phosphatase (38-126) U/L Total Protein (6.3-8.2) g/dL Albumin (3.5-5.0) g/dL Amylase (30-110) U/L Lipase (23-300) U/L Urine Color Yellow Urine Appearance Clear (Clear) Urine pH 6.0 (5.0-8.0) Ur Specific [place] 1.017 (1.001-1.035) Urine Protein Trace H (Negative) Urine Glucose (UA) Negative (Negative) Urine Ketones Trace H (Negative) Urine Blood Negative (Negative) Urine Nitrite Negative (Negative) Urine Bilirubin Negative (Negative) Urine Urobilinogen <2.0 (<2.0) mg/dL Ur Leukocyte Esterase Trace H (Negative) Urine RBC <1 (0-5) /hpf Urine WBC 2 (0-5) /hpf Ur Squamous Epith Cells 1 (0-4) /hpf Urine Mucus Rare H (None) /hpf Urine HCG, Qual Not Detected (Not Detectd) Influenza Type A RNA Not Detected (Not Detectd) Influenza Type B (PCR) Not Detected (Not Detectd) Disposition Clinical Impression: Nausea vomiting and diarrhea Disposition: HOME SELF-CARE Condition: Good Instructions (If sedation given, give patient instructions): Acute Nausea and Vomiting (ED), Acute Diarrhea (ED) Additional Instructions: Please take Zofran as needed for nausea. Please follow up with primary care in 1-2 days. Return to the emergency department if you have any worsening symptoms. Is patient prescribed a controlled substance at d/c from ED?: No Referrals: Mateus Curtis DO [Primary Care Provider] - 1-2 days Time of Disposition: 17:37
[2019-05-01 17:37] VITALS: BP 110/77; PULSE 80
[2019-05-01] MEDS ORDERED: ONDANSETRON 4 MG ODT STARTER PACK 2 TAB BTL PO STA (17:37)
[2019-05-01 18:00] VITALS: TEMP 98.2
== END 2019-05-01 18:00 | disposition home or self-care (01) ==
LOC: EC 14:16
DX: R11.2 Nausea with vomiting, unspecified (principal); R19.7 Diarrhea, unspecified; E86.0 Dehydration; E11.9 Type 2 diabetes mellitus without complications; F31.9 Bipolar disorder, unspecified; F17.200 Nicotine dependence, unspecified, uncomplicated; Z79.899 Other long term (current) drug therapy; Z88.1 Allergy status to other antibiotic agents; Z91.030 Bee allergy status; Z90.49 Acquired absence of other specified parts of digestive tract
CPT/HCPCS: 99284; 96374; 96375; 96361 ×2; 36415; 80053; 82150; 83690; 85025; 81001; 81025; 87502; 71046; 74018; J2405; J1885; S0119

== ENCOUNTER 2019-05-20 18:47 | Emergency (ER) | payer OTHER ==
--- NOTE | 2019-05-20 19:09 | ED ---
General Adult HPI - General Chief complaint: Skin/Abscess/Foreign Body Stated complaint: Infection in finger,hyperglycemia Time Seen by Provider: 05/20/19 18:53 Source: patient, RN notes reviewed Mode of arrival: ambulatory Limitations: no limitations - History of Present Illness Initial comments: 43-year-old male with a past medical history of diabetes, pneumonia, bronchitis, kidney stones presents to the emergency department for a chief complaint of abscess. Patient states she has an infection of her right third digit. Patient states that it has been there for about 2 weeks but today it started draining at work. She called her primary care provider who recommended she come to the emergency department. Patient states that it drained pus. Patient denies any pain with movement of the third digit including flexing and extending. Patient has no other complaints at this time including shortness of breath, chest pain, abdominal pain, nausea or vomiting, headache, or visual changes. - Related Data Home Medications Medication Instructions Recorded Confirmed Acetaminophen Tab [Tylenol] 650 mg PO Q4H PRN 04/30/16 05/01/16 Citalopram Hydrobromide 20 mg PO DAILY 05/01/16 05/01/16 [Citalopram HBr] Previous Rx's Medication Instructions Recorded Ferrous Sulfate [Iron (65 MG 325 mg PO W/LUNCH #30 tab 05/02/16 Elemental)] INSULIN LISPRO (humaLOG) [humaLOG] 0 unit SQ ACHS vial 05/02/16 Insulin Glargine,Hum.rec.anlog 30 unit SQ HS #2 ml 05/02/16 [Lantus Solostar] Insulin Lispro [humaLOG Kwikpen] 10 unit SQ AC-TID #3 insuln.pen 05/02/16 Nicotine 14Mg/24Hr Patch [Habitrol] 1 patch TRANSDERM DAILY #30 patch 05/02/16 Ciprofloxacin HCl [Cipro] 500 mg PO BID 7 Days #14 tab 01/01/19 Cephalexin [Keflex] 500 mg PO Q6HR 10 Days #40 cap 01/14/19 Ondansetron [Zofran ODT] 4 mg PO Q8HR PRN #15 tab 01/14/19 Ondansetron [Zofran ODT] 4 mg PO Q8HR PRN #15 tab 05/01/19 Sulfamethox-Tmp 800-160Mg [Bactrim 1 tab PO Q12HR #20 tab 05/20/19 DS 800-160 mg] Allergies Allergy/AdvReac Type Severity Reaction Status Date / Time clarithromycin [From Biaxin] Allergy Unknown Verified 05/20/19 18:51 BBE STINGS Allergy Unknown Uncoded 05/20/19 18:51 MACULIDE Allergy Unknown Uncoded 05/20/19 18:51 Review of Systems ROS Statement: Those systems with pertinent positive or pertinent negative responses have been documented in the HPI. ROS Other: All systems not noted in ROS Statement are negative. Past Medical History Past Medical History: Diabetes Mellitus, Pneumonia Additional Past Medical History / Comment(s): BRONCHITIS, KIDNEY STONES,UTI, ANXIETY ,BIPOLAR DEPRESSION chronic back pain History of Any Multi-Drug Resistant Organisms: None Reported Past Surgical History: Cholecystectomy Additional Past Surgical History / Comment(s): PAST MED HX LISTED CERCLAGE PROCEDURE X2 Past Anesthesia/Blood Transfusion Reactions: Postoperative Nausea & Vomiting (PONV) Past Psychological History: Anxiety, Bipolar, Depression Smoking Status: Current every day smoker Past Alcohol Use History: None Reported Past Drug Use History: None Reported - Past Family History Mother Family Medical History: Congestive Heart Failure (CHF), Diabetes Mellitus, Hyperlipidemia, Hypertension Additional Family Medical History / Comment(s): KIDNEY FAILURE Father Family Medical History: Diabetes Mellitus Additional Family Medical History / Comment(s): COLLAPSED LUNG General Exam Limitations: no limitations General appearance: alert, in no apparent distress (Well-appearing, sitting up in bed) Head exam: Present: atraumatic, normocephalic, normal inspection Eye exam: Present: normal appearance, PERRL, EOMI. Absent: scleral icterus, conjunctival injection, periorbital swelling ENT exam: Present: normal exam, mucous membranes moist Neck exam: Present: normal inspection, full ROM. Absent: tenderness, meningismus, lymphadenopathy Respiratory exam: Present: normal lung sounds bilaterally. Absent: respiratory distress, wheezes, rales, rhonchi, stridor Cardiovascular Exam: Present: regular rate, normal rhythm, normal heart sounds. Absent: systolic murmur, diastolic murmur, rubs, gallop, clicks Extremities exam: Present: other (Patient has small less than 1 cm x 1 cm defect noted on the palmar aspect of the middle phalanx of the right third finger. This is no longer fluctuant as patient reports it was draining earlier today. I do not see any surrounding cellulitis. There is no streaking redness. Patient does not have any pain to palpation of the flexor tendon. She has full range of motion of the digit. Capillary refill is less than 2 seconds. Radial pulses 2+ in the right upper extremity.) Course Vital Signs 05/20/19 18:48 Temperature 97.9 F Pulse Rate 100 Respiratory 20 Rate Blood Pressure 147/76 O2 Sat by Pulse 100 Oximetry Medical Decision Making - Medical Decision Making Patient had small less than 1 cm x 1 cm abscess noted to the middle phalanx of the right third digit. This is no longer fluctuant as it has already drained today. I discussed with patient that I could incise the area however I cannot guarantee that pus will be expelled. Patient agrees at this time to take antibiotics and keep warm compresses to facilitate drainage. Patient does not have any evidence of a flexor tendinitis. She has no tenderness of the flexor tendon. No pain with extension. She does not have any surrounding cellulitis. At this time I recommend she follows up with her primary care provider on Thursday so they can monitor this to ensure it is healing. Recommend she return here with any worsening symptoms. Disposition Clinical Impression: Abscess Disposition: HOME SELF-CARE Condition: Good Instructions (If sedation given, give patient instructions): Abscess (ED), Warm Compress or Soak (ED) Additional Instructions: Take antibiotic as directed. Do warm soapy soaks. Follow up with primary care in 1-2 days so that he can monitor the abscess and make sure it is healing. Return to the emergency department if you have any worsening symptoms. Prescriptions: Sulfamethox-Tmp 800-160Mg [Bactrim DS 800-160 mg] 1 tab PO Q12HR #20 tab Is patient prescribed a controlled substance at d/c from ED?: No Referrals: Mateus Curtis DO [Primary Care Provider] - 1-2 days Time of Disposition: 19:10
[2019-05-20 21:09] VITALS: BP 147/76; PULSE 100; RESP 20; TEMP 97.9
== END 2019-05-20 19:17 | disposition home or self-care (01) ==
LOC: EC 18:47
DX: L02.511 Cutaneous abscess of right hand (principal); E11.65 Type 2 diabetes mellitus with hyperglycemia; F41.9 Anxiety disorder, unspecified; F31.9 Bipolar disorder, unspecified; Z88.1 Allergy status to other antibiotic agents; Z91.030 Bee allergy status; Z88.8 Allergy status to other drugs, medicaments and biological substances; F17.200 Nicotine dependence, unspecified, uncomplicated; Z79.899 Other long term (current) drug therapy; Z90.49 Acquired absence of other specified parts of digestive tract; Z83.3 Family history of diabetes mellitus
CPT/HCPCS: 99283

== ENCOUNTER 2019-05-21 06:46 | Emergency (ER) | payer OTHER ==
[2019-05-21 06:52] VITALS: BP 131/82; PULSE 97; RESP 20; TEMP 97.7
--- NOTE | 2019-05-21 07:13 | ED ---
General Adult HPI - General Chief complaint: Skin/Abscess/Foreign Body Stated complaint: finger infection Time Seen by Provider: 05/21/19 06:55 Source: patient, family, RN notes reviewed, old records reviewed Mode of arrival: ambulatory Limitations: no limitations - History of Present Illness Initial comments: This is a 43-year-old female who has a past medical history significant for being a diabetic. Patient states she was seen yesterday for a finger infection on her right hand and her middle finger. Patient states she was told to come back pain got worse she states that the finger is less red and less swollen and it already is draining but the pain got a little worse so she decided come back and be reevaluated. Patient denies any fever chills per patient denies any increasing erythema. Patient states that swelling is gone down. Patient is taking Bactrim. - Related Data Home Medications Medication Instructions Recorded Confirmed Acetaminophen Tab [Tylenol] 650 mg PO Q4H PRN 04/30/16 05/01/16 Citalopram Hydrobromide 20 mg PO DAILY 05/01/16 05/01/16 [Citalopram HBr] Previous Rx's Medication Instructions Recorded Ferrous Sulfate [Iron (65 MG 325 mg PO W/LUNCH #30 tab 05/02/16 Elemental)] INSULIN LISPRO (humaLOG) [humaLOG] 0 unit SQ ACHS vial 05/02/16 Insulin Glargine,Hum.rec.anlog 30 unit SQ HS #2 ml 05/02/16 [Lantus Solostar] Insulin Lispro [humaLOG Kwikpen] 10 unit SQ AC-TID #3 insuln.pen 05/02/16 Nicotine 14Mg/24Hr Patch [Habitrol] 1 patch TRANSDERM DAILY #30 patch 05/02/16 Ciprofloxacin HCl [Cipro] 500 mg PO BID 7 Days #14 tab 01/01/19 Cephalexin [Keflex] 500 mg PO Q6HR 10 Days #40 cap 01/14/19 Ondansetron [Zofran ODT] 4 mg PO Q8HR PRN #15 tab 01/14/19 Ondansetron [Zofran ODT] 4 mg PO Q8HR PRN #15 tab 05/01/19 Sulfamethox-Tmp 800-160Mg [Bactrim 1 tab PO Q12HR #20 tab 05/20/19 DS 800-160 mg] Cephalexin [Keflex] 500 mg PO Q6HR #28 cap 05/21/19 Allergies Allergy/AdvReac Type Severity Reaction Status Date / Time clarithromycin [From Biaxin] Allergy Unknown Verified 05/21/19 06:52 BBE STINGS Allergy Unknown Uncoded 05/21/19 06:52 MACULIDE Allergy Unknown Uncoded 05/21/19 06:52 Review of Systems ROS Statement: Those systems with pertinent positive or pertinent negative responses have been documented in the HPI. ROS Other: All systems not noted in ROS Statement are negative. Past Medical History Past Medical History: Diabetes Mellitus, Pneumonia Additional Past Medical History / Comment(s): BRONCHITIS, KIDNEY STONES,UTI, ANXIETY ,BIPOLAR DEPRESSION chronic back pain History of Any Multi-Drug Resistant Organisms: None Reported Past Surgical History: Cholecystectomy Additional Past Surgical History / Comment(s): PAST MED HX LISTED CERCLAGE PROCEDURE X2 Past Anesthesia/Blood Transfusion Reactions: Postoperative Nausea & Vomiting (PONV) Past Psychological History: Anxiety, Bipolar, Depression Smoking Status: Current every day smoker Past Alcohol Use History: None Reported Past Drug Use History: None Reported - Past Family History Mother Family Medical History: Congestive Heart Failure (CHF), Diabetes Mellitus, Hyperlipidemia, Hypertension Additional Family Medical History / Comment(s): KIDNEY FAILURE Father Family Medical History: Diabetes Mellitus Additional Family Medical History / Comment(s): COLLAPSED LUNG General Exam - General Exam Comments Initial Comments: GENERAL Patient is well-developed and well-nourished. Patient is in mild distress. EYES Patient's pupils are equal and round. Extraocular motion is intact SKIN Unremarkable NEURO The patient is alert and oriented 3 PYSCH Patient has normal interpersonal interactions. MUSCULOSKELETAL Patient's finger has no area of fluctuance there is a small lesion that is draining clear serous fluid. There is very minimal erythema around the open area.. Limitations: no limitations Course Vital Signs 05/21/19 05/21/19 06:48 07:22 Temperature 97.7 F 97.7 F Pulse Rate 97 97 Respiratory 20 20 Rate Blood Pressure 131/82 131/82 O2 Sat by Pulse 100 100 Oximetry Disposition Clinical Impression: Finger infection Disposition: HOME SELF-CARE Condition: Good Instructions (If sedation given, give patient instructions): Cellulitis (ED) Additional Instructions: Patient should return if she has any fevers there's any increasing erythema or increased swelling. Patient should take both Keflex and Bactrim Prescriptions: Cephalexin [Keflex] 500 mg PO Q6HR #28 cap Is patient prescribed a controlled substance at d/c from ED?: No Referrals: Mateus Curtis DO [Primary Care Provider] - 1-2 days Time of Disposition: 07:13
== END 2019-05-21 07:22 | disposition home or self-care (01) ==
LOC: EC 06:46
DX: L08.9 Local infection of the skin and subcutaneous tissue, unspecified (principal); E11.9 Type 2 diabetes mellitus without complications; F41.9 Anxiety disorder, unspecified; F31.9 Bipolar disorder, unspecified; F17.200 Nicotine dependence, unspecified, uncomplicated; Z79.899 Other long term (current) drug therapy; Z88.1 Allergy status to other antibiotic agents; Z91.030 Bee allergy status; Z91.048 Other nonmedicinal substance allergy status
CPT/HCPCS: 99283

== ENCOUNTER 2019-05-23 07:45 | Emergency (ER) | payer OTHER ==
[2019-05-23 07:52] VITALS: TEMP 97.9
[2019-05-23 07:52] LABS: Glucose,Whole Blood 248 mg/dL (75-99)
[2019-05-23] MEDS ORDERED: SODIUM CHLORIDE 0.9% 500 ML 500 ML IV ONE (08:02)
--- NOTE | 2019-05-23 08:06 | ED ---
General Adult HPI - General Chief complaint: Neuro Symptoms/Deficit Stated complaint: Facial numbness Time Seen by Provider: 05/23/19 07:54 Source: patient, RN notes reviewed, old records reviewed Mode of arrival: ambulatory Limitations: no limitations - History of Present Illness Initial comments: 43-year-old female presenting for evaluation of numbness around her lips, right side of her face, both both hands and both feet. She is a type II diabetic and has history of peripheral neuropathy. She is currently on Lyrica but states the Lyrica has not been working. Her symptoms have worsened over the past 24 hours. She denies any focal weakness. Her symptoms are predominantly bilateral. She has no history of TIA or CVA. Denies abdominal pain nausea vomiting. Denies chest pain or dyspnea. Denies fever chills per teaspoon URI symptoms for a pproximately 2 weeks including nasal congestion and mild cough. Patient states she's had similar symptoms in the past when her sugars have been elevated. - Related Data Home Medications Medication Instructions Recorded Confirmed Acetaminophen Tab [Tylenol] 650 mg PO Q4H PRN 04/30/16 05/01/16 Citalopram Hydrobromide 20 mg PO DAILY 05/01/16 05/01/16 [Citalopram HBr] Previous Rx's Medication Instructions Recorded Ferrous Sulfate [Iron (65 MG 325 mg PO W/LUNCH #30 tab 05/02/16 Elemental)] INSULIN LISPRO (humaLOG) [humaLOG] 0 unit SQ ACHS vial 05/02/16 Insulin Glargine,Hum.rec.anlog 30 unit SQ HS #2 ml 05/02/16 [Lantus Solostar] Insulin Lispro [humaLOG Kwikpen] 10 unit SQ AC-TID #3 insuln.pen 05/02/16 Nicotine 14Mg/24Hr Patch [Habitrol] 1 patch TRANSDERM DAILY #30 patch 05/02/16 Ciprofloxacin HCl [Cipro] 500 mg PO BID 7 Days #14 tab 01/01/19 Cephalexin [Keflex] 500 mg PO Q6HR 10 Days #40 cap 01/14/19 Ondansetron [Zofran ODT] 4 mg PO Q8HR PRN #15 tab 01/14/19 Ondansetron [Zofran ODT] 4 mg PO Q8HR PRN #15 tab 05/01/19 Sulfamethox-Tmp 800-160Mg [Bactrim 1 tab PO Q12HR #20 tab 05/20/19 DS 800-160 mg] Cephalexin [Keflex] 500 mg PO Q6HR #28 cap 05/21/19 Allergies Allergy/AdvReac Type Severity Reaction Status Date / Time clarithromycin [From Biaxin] Allergy Unknown Verified 05/21/19 06:52 BBE STINGS Allergy Unknown Uncoded 05/21/19 06:52 MACULIDE Allergy Unknown Uncoded 05/21/19 06:52 Review of Systems ROS Statement: Those systems with pertinent positive or pertinent negative responses have been documented in the HPI. ROS Other: All systems not noted in ROS Statement are negative. Past Medical History Past Medical History: Diabetes Mellitus, Pneumonia Additional Past Medical History / Comment(s): BRONCHITIS, KIDNEY STONES,UTI, ANXIETY ,BIPOLAR DEPRESSION chronic back pain History of Any Multi-Drug Resistant Organisms: None Reported Past Surgical History: Cholecystectomy Additional Past Surgical History / Comment(s): PAST MED HX LISTED CERCLAGE PROCEDURE X2 Past Anesthesia/Blood Transfusion Reactions: Postoperative Nausea & Vomiting (PONV) Past Psychological History: Anxiety, Bipolar, Depression Smoking Status: Current every day smoker Past Alcohol Use History: None Reported Past Drug Use History: None Reported - Past Family History Mother Family Medical History: Congestive Heart Failure (CHF), Diabetes Mellitus, Hyperlipidemia, Hypertension Additional Family Medical History / Comment(s): KIDNEY FAILURE Father Family Medical History: Diabetes Mellitus Additional Family Medical History / Comment(s): COLLAPSED LUNG General Exam Limitations: no limitations General appearance: alert, in no apparent distress Head exam: Present: atraumatic, normocephalic Eye exam: Present: normal appearance, PERRL ENT exam: Present: normal exam Neck exam: Present: normal inspection. Absent: tenderness, meningismus Respiratory exam: Present: normal lung sounds bilaterally. Absent: respiratory distress, wheezes Cardiovascular Exam: Present: regular rate, normal rhythm GI/Abdominal exam: Present: soft. Absent: distended, tenderness Extremities exam: Present: normal inspection Neurological exam: Present: alert, oriented X3, CN II-XII intact, normal gait, other (Normal haullk-ak-ellz bilaterally, no ataxia). Absent: motor sensory deficit Psychiatric exam: Present: normal affect, normal mood Skin exam: Present: warm, dry, intact. Absent: cyanosis, diaphoretic Course Vital Signs 05/23/19 05/23/19 07:48 09:00 Temperature 97.9 F Pulse Rate 89 Respiratory 17 18 Rate Blood Pressure 139/84 119/75 O2 Sat by Pulse 100 Oximetry EKG Findings - EKG Comments: EKG Findings:: EKG: Normal sinus rhythm, low voltage, rate of 79, TX interval 180, QRS duration 64, QTC 428, no ST segment elevation or depression Medical Decision Making - Medical Decision Making 42-year-old female with bilateral hand bilateral foot and periorbital numbness and tingling. She is elevated blood sugar of 250, history of DKA, history of neuropathy. She has stable vitals, no focal findings on exam, no facial droop, normal strength exam throughout NIH is 0. Workup reveals normal CBC, she has magnesium 1.4 which is replaced in the emergency department. Other electrolytes are within normal limits. She will monitor blood glucose at home and return with development of any unilateral weakness or stroke symptoms. She will follow with her doctor regarding paresthesias and neuropathy. - Lab Data Result diagrams: 05/23/19 08:22 05/23/19 08:22 Lab Results 05/23/19 05/23/19 05/23/19 Range/Units 07:51 08:22 08:22 WBC 9.2 (3.8-10.6) k/uL RBC 4.85 (3.80-5.40) m/uL Hgb 14.6 (11.4-16.0) gm/dL Hct 43.4 (34.0-46.0) % MCV 89.4 (80.0-100.0) fL MCH 30.0 (25.0-35.0) pg MCHC 33.6 (31.0-37.0) g/dL RDW 12.6 (11.5-15.5) % Plt Count 305 (150-450) k/uL Neutrophils % 65 % Lymphocytes % 23 % Monocytes % 5 % Eosinophils % 5 % Basophils % 1 % Neutrophils # 6.0 (1.3-7.7) k/uL Lymphocytes # 2.1 (1.0-4.8) k/uL Monocytes # 0.5 (0-1.0) k/uL Eosinophils # 0.5 (0-0.7) k/uL Basophils # 0.1 (0-0.2) k/uL Sodium 138 (137-145) mmol/L Potassium 4.7 (3.5-5.1) mmol/L Chloride 107 (98-107) mmol/L Carbon Dioxide 20 L (22-30) mmol/L Anion Gap 11 mmol/L BUN 15 (7-17) mg/dL Creatinine 0.56 (0.52-1.04) mg/dL Est GFR (CKD-EPI)AfAm >90 (>60 ml/min/1.73 sqM) Est GFR (CKD-EPI)NonAf >90 (>60 ml/min/1.73 sqM) Glucose 231 H (74-99) mg/dL POC Glucose (mg/dL) 248 H (75-99) mg/dL POC Glu [employer] Tig Welder ID MassielnikitaAsha Plasma Lactic Acid Arnaldo (0.7-2.0) mmol/L Calcium 9.1 (8.4-10.2) mg/dL Magnesium 1.4 L (1.6-2.3) mg/dL Total Bilirubin 0.6 (0.2-1.3) mg/dL AST 17 (14-36) U/L ALT 13 (4-34) U/L Alkaline Phosphatase 104 (38-126) U/L Total Protein 6.9 (6.3-8.2) g/dL Albumin 3.9 (3.5-5.0) g/dL Urine Color Urine Appearance (Clear) Urine pH (5.0-8.0) Ur Specific [place] (1.001-1.035) Urine Protein (Negative) Urine Glucose (UA) (Negative) Urine Ketones (Negative) Urine Blood (Negative) Urine Nitrite (Negative) Urine Bilirubin (Negative) Urine Urobilinogen (<2.0) mg/dL Ur Leukocyte Esterase (Negative) Urine RBC (0-5) /hpf Urine WBC (0-5) /hpf Ur Squamous Epith Cells (0-4) /hpf Urine Bacteria (None) /hpf Urine Mucus (None) /hpf Acetone, Qual Negative (Negative) 05/23/19 05/23/19 Range/Units 08:22 09:20 WBC (3.8-10.6) k/uL RBC (3.80-5.40) m/uL Hgb (11.4-16.0) gm/dL Hct (34.0-46.0) % MCV (80.0-100.0) fL MCH (25.0-35.0) pg MCHC (31.0-37.0) g/dL RDW (11.5-15.5) % Plt Count (150-450) k/uL Neutrophils % % Lymphocytes % % Monocytes % % Eosinophils % % Basophils % % Neutrophils # (1.3-7.7) k/uL Lymphocytes # (1.0-4.8) k/uL Monocytes # (0-1.0) k/uL Eosinophils # (0-0.7) k/uL Basophils # (0-0.2) k/uL Sodium (137-145) mmol/L Potassium (3.5-5.1) mmol/L Chloride (98-107) mmol/L Carbon Dioxide (22-30) mmol/L Anion Gap mmol/L BUN (7-17) mg/dL Creatinine (0.52-1.04) mg/dL Est GFR (CKD-EPI)AfAm (>60 ml/min/1.73 sqM) Est GFR (CKD-EPI)NonAf (>60 ml/min/1.73 sqM) Glucose (74-99) mg/dL POC Glucose (mg/dL) (75-99) mg/dL POC Glu [employer] Tig Welder ID Plasma Lactic Acid Arnaldo 1.4 (0.7-2.0) mmol/L Calcium (8.4-10.2) mg/dL Magnesium (1.6-2.3) mg/dL Total Bilirubin (0.2-1.3) mg/dL AST (14-36) U/L ALT (4-34) U/L Alkaline Phosphatase (38-126) U/L Total Protein (6.3-8.2) g/dL Albumin (3.5-5.0) g/dL Urine Color Colorless Urine Appearance Clear (Clear) Urine pH 5.0 (5.0-8.0) Ur Specific [place] 1.010 (1.001-1.035) Urine Protein Negative (Negative) Urine Glucose (UA) 2+ H (Negative) Urine Ketones Negative (Negative) Urine Blood Small (Negative) Urine Nitrite Negative (Negative) Urine Bilirubin Negative (Negative) Urine Urobilinogen <2.0 (<2.0) mg/dL Ur Leukocyte Esterase Small (Negative) Urine RBC 1 (0-5) /hpf Urine WBC 6 H (0-5) /hpf Ur Squamous Epith Cells 2 (0-4) /hpf Urine Bacteria Rare H (None) /hpf Urine Mucus Rare H (None) /hpf Acetone, Qual (Negative) Disposition Clinical Impression: Peripheral neuropathy, Paresthesia, Hypomagnesemia Disposition: HOME SELF-CARE Condition: Stable Is patient prescribed a controlled substance at d/c from ED?: No Referrals: Mateus Curtis DO [Primary Care Provider] - 1-2 days Time of Disposition: 10:01
[2019-05-23 08:39] LABS: Basophils # (A) 0.1 k/uL (0-0.2); Basophils % (A) 1 %; Eosinophils # (A) 0.5 k/uL (0-0.7); Eosinophils % (A) 5 %; HCT 43.4 % (34.0-46.0); HGB 14.6 gm/dL (11.4-16.0); Lymphocytes # (A) 2.1 k/uL (1.0-4.8); Lymphocytes % (A) 23 %; MCHC 33.6 g/dL (31.0-37.0); MCV 89.4 fL (80.0-100.0); Mean Platelet Volume 8.8; Monocytes # (A) 0.5 k/uL (0-1.0); Monocytes % (A) 5 %; Neutrophils % (A) 65 %; Platelet Count 305 k/uL (150-450); RBC 4.85 m/uL (3.80-5.40); RDW 12.6 % (11.5-15.5); WBC 9.2 k/uL (3.8-10.6)
[2019-05-23 08:49] LABS: ALT 13 U/L (4-34); AST 17 U/L (14-36); African American GFR (CKD) >90 (>60 ml/min/1.73 sqM); Albumin 3.9 g/dL (3.5-5.0); Alkaline Phosphatase 104 U/L (38-126); Anion Gap 11 mmol/L; Blood Urea Nitrogen 15 mg/dL (7-17); Calcium 9.1 mg/dL (8.4-10.2); Carbon Dioxide 20 mmol/L (22-30); Chloride 107 mmol/L (98-107); Glucose 231 mg/dL (74-99); Magnesium 1.4 mg/dL (1.6-2.3); Non-African American GFR(CKD) >90 (>60 ml/min/1.73 sqM); Potassium 4.7 mmol/L (3.5-5.1); Sodium 138 mmol/L (137-145); Total Bilirubin 0.6 mg/dL (0.2-1.3); Total Protein 6.9 g/dL (6.3-8.2)
[2019-05-23] MEDS ORDERED: MAGNESIUM SULFATE-D5W PMX 1 GM in DEXTROSE/WATER 1 100ML.BAG IVPB ONE (08:56)
[2019-05-23 09:05] VITALS: RESP 18
[2019-05-23 09:51] LABS: Bacteria,Urine Rare /hpf; Mucus,Urine Rare /hpf; RBC,Urine 1 /hpf (0-5); Squamous Epithelial Cell,Urine 2 /hpf (0-4); WBC,Urine 6 /hpf (0-5)
[2019-05-23 09:54] LABS: Appearance,Urine Clear (Clear); Color,Urine Colorless; Protein,Urine Negative (Negative)
[2019-05-23 09:55] LABS: Bilirubin,Urine Negative (Negative); Blood,Urine Small (Negative); Glucose,Urine (UA) 2+ (Negative); Ketones,Urine Negative (Negative); Leukocyte Esterase,Urine Small (Negative); Nitrite,Urine Negative (Negative); Urobilinogen,Urine <2.0 mg/dL (<2.0)
[2019-05-23 10:06] VITALS: PULSE 82
[2019-05-23 10:26] VITALS: BP 116/89
== END 2019-05-23 10:36 | disposition home or self-care (01) ==
LOC: EC 07:45
DX: E83.42 Hypomagnesemia (principal); E11.42 Type 2 diabetes mellitus with diabetic polyneuropathy; F41.9 Anxiety disorder, unspecified; F31.9 Bipolar disorder, unspecified; F17.200 Nicotine dependence, unspecified, uncomplicated; Z79.4 Long term (current) use of insulin; Z79.899 Other long term (current) drug therapy; Z88.1 Allergy status to other antibiotic agents; Z91.030 Bee allergy status; Z83.3 Family history of diabetes mellitus; Z90.49 Acquired absence of other specified parts of digestive tract
CPT/HCPCS: 36415; 93005; 80053; 82009; 83605; 83735; 85025; 81001; 96365; 99284; J3475

== ENCOUNTER 2019-07-04 14:19 | Inpatient (IN) | payer OTHER ==
[2019-07-04 14:34] LABS: Glucose,Whole Blood 320 mg/dL (75-99)
[2019-07-04] MEDS ORDERED: SODIUM CHLORIDE 0.9% 1,000 ML IV STA ×2 (14:40→15:45)
[2019-07-04] MEDS ORDERED: ONDANSETRON 4 MG/2 ML VIAL IVP STA (14:40)
--- NOTE | 2019-07-04 15:07 | ED ---
General Adult HPI - General Chief complaint: Nausea/Vomiting/Diarrhea Stated complaint: Vomiting,Diarrhea Time Seen by Provider: 07/04/19 14:38 Source: patient Mode of arrival: ambulatory Limitations: no limitations - History of Present Illness Initial comments: Dictation was produced using [employer] dictation software. please excuse any grammatical, word or spelling errors. Chief Complaint: 43-year-old female presents with abdominal pain, nausea and vomiting and diarrhea History of Present Illness: 43-year-old female she presents today with nausea vomiting and diarrhea. Patient was that she's been sick for the last 24-48 hours. Patient is a sku-lriunnq-ataiwkvxm diabetic. She states that her vomiting is so bad that she is unable to keep anything down. Patient denies being on insulin however her medication review shows that she is prescribed. Patient states that her emesis and diarrhea as nonbilious not bloody. She does complain of diffuse abdominal pain. Patient has history of cholecystectomy. Denies any other abdominal surgeries. The ROS documented in this emergency department record has been reviewed and confirmed by me. Those systems with pertinent positive or negative responses have been documented in the HPI. All other systems are other negative and/or noncontributory. PHYSICAL EXAM: General Impression: Alert and oriented x3, not in acute distress HEENT: Normocephalic atraumatic, extra-ocular movements intact, pupils equal and reactive to light bilaterally, mucous membranes moist. Cardiovascular: Heart regular rate and rhythm, S1&S2 audible, no murmurs, rubs or gallops Chest: Lungs clear to auscultation bilaterally, no rhonchi, no wheeze, no rales Abdomen: Bowel sounds present, abdomen soft, non-tender, non-distended, no organomegaly Musculoskeletal: Pulses present and equal in all extremities, no peripheral edema Motor: no focal deficits noted Neurological: CN II-XII grossly intact, no focal motor or sensory deficits noted Skin: Intact with no visualized rashes Psych: Normal affect and mood ED course: 43 y Old female presents with abdominal pain, nausea, vomiting and diarrhea. Vital signs upon arrival shows heart rate of 110, rest of vital signs within acceptable limits. Blood glucose is 320 Laboratory evaluation obtained. No leukocytosis. Glucose 60.3 likely secondary to hemoconcentration. Venous blood gas unclear however unremarkable. Metabolic panel shows anion gap acidosis. Patient does normally have acidosis however not generally this impressive. Glucose is 335. There is concern of diabetic ketoacidosis. Patient given intravenous fluids. Rest of metabolic panel is unremarkable. Urinalysis shows 2+ ketones. Acetone is negative. There is concern of DKA. However patient metabolic panel is not that severe to warrant insulin drip. Patient will be admitted with intravenous fluids and medical monitoring. Discussed patient case with Dr. Reid who was went except patient's care. EKG interpretation: Ventricular rate 96, normal sinus rhythm, GA 164, QRS 74, QTC 454. No GA prolongation, no QTC prolongation, no ST or T-wave changes noted. Overall, this EKG is unremarkable - Related Data Home Medications Medication Instructions Recorded Confirmed Albuterol Inhaler [Ventolin Hfa 2 puff INHALATION RT-QID PRN 07/04/19 07/04/19 Inhaler] Lacosamide [Vimpat] 100 mg PO BID 07/04/19 07/04/19 Methocarbamol [Robaxin-750] 750 mg PO TID PRN 07/04/19 07/04/19 Naproxen 500 mg PO TID PRN 07/04/19 07/04/19 Pregabalin [Lyrica] 150 mg PO TID 07/04/19 07/04/19 Sertraline [Zoloft] 100 mg PO DAILY 07/04/19 07/04/19 metFORMIN HCL 1,000 mg PO BID 07/04/19 07/04/19 oxyCODONE-APAP 7.5-325MG [Percocet 1 tab PO TID PRN 07/04/19 07/04/19 7.5-325 mg] Allergies Allergy/AdvReac Type Severity Reaction Status Date / Time clarithromycin [From Biaxin] Allergy Unknown Verified 07/04/19 15:54 BBE STINGS Allergy Unknown Uncoded 05/21/19 06:52 MACULIDE Allergy Unknown Uncoded 05/21/19 06:52 Review of Systems ROS Statement: Those systems with pertinent positive or pertinent negative responses have been documented in the HPI. ROS Other: All systems not noted in ROS Statement are negative. Past Medical History Past Medical History: Diabetes Mellitus, Pneumonia Additional Past Medical History / Comment(s): BRONCHITIS, KIDNEY STONES,UTI, ANXIETY ,BIPOLAR DEPRESSION chronic back pain History of Any Multi-Drug Resistant Organisms: None Reported Past Surgical History: Cholecystectomy Additional Past Surgical History / Comment(s): PAST MED HX LISTED CERCLAGE PROCEDURE X2 Past Anesthesia/Blood Transfusion Reactions: Postoperative Nausea & Vomiting (PONV) Past Psychological History: Anxiety, Bipolar, Depression Smoking Status: Current every day smoker Past Alcohol Use History: None Reported Past Drug Use History: None Reported - Past Family History Mother Family Medical History: Congestive Heart Failure (CHF), Diabetes Mellitus, Hyperlipidemia, Hypertension Additional Family Medical History / Comment(s): KIDNEY FAILURE Father Family Medical History: Diabetes Mellitus Additional Family Medical History / Comment(s): COLLAPSED LUNG General Exam Limitations: no limitations Course Vital Signs 07/04/19 14:29 Temperature 98 F Pulse Rate 110 H Respiratory 18 Rate Blood Pressure 139/79 O2 Sat by Pulse 98 Oximetry Medical Decision Making - Lab Data Result diagrams: 07/04/19 14:57 07/04/19 14:57 Lab Results 07/04/19 07/04/19 07/04/19 Range/Units 14:31 14:57 14:57 WBC 7.4 (3.8-10.6) k/uL RBC 5.59 H (3.80-5.40) m/uL Hgb 16.3 H (11.4-16.0) gm/dL Hct 48.8 H (34.0-46.0) % MCV 87.4 (80.0-100.0) fL MCH 29.2 (25.0-35.0) pg MCHC 33.4 (31.0-37.0) g/dL RDW 12.8 (11.5-15.5) % Plt Count 292 (150-450) k/uL Neutrophils % 66 % Lymphocytes % 19 % Monocytes % 8 % Eosinophils % 3 % Basophils % 1 % Neutrophils # 4.9 (1.3-7.7) k/uL Lymphocytes # 1.4 (1.0-4.8) k/uL Monocytes # 0.6 (0-1.0) k/uL Eosinophils # 0.3 (0-0.7) k/uL Basophils # 0.0 (0-0.2) k/uL VBG pH (7.31-7.41) VBG pCO2 (37-51) mmHg VBG HCO3 (24-28) mmol/L Sodium 133 L (137-145) mmol/L Potassium 4.7 (3.5-5.1) mmol/L Chloride 102 (98-107) mmol/L Carbon Dioxide 17 L (22-30) mmol/L Anion Gap 14 mmol/L BUN 20 H (7-17) mg/dL Creatinine 0.52 (0.52-1.04) mg/dL Est GFR (CKD-EPI)AfAm >90 (>60 ml/min/1.73 sqM) Est GFR (CKD-EPI)NonAf >90 (>60 ml/min/1.73 sqM) Glucose 335 H (74-99) mg/dL POC Glucose (mg/dL) 320 H (75-99) mg/dL POC Glu Woodworker ID Reena Marley Calcium 9.2 (8.4-10.2) mg/dL Phosphorus 3.5 (2.5-4.5) mg/dL Magnesium 1.8 (1.6-2.3) mg/dL Total Bilirubin 0.7 (0.2-1.3) mg/dL AST 29 (14-36) U/L ALT 25 (4-34) U/L Alkaline Phosphatase 95 (38-126) U/L Total Protein 7.9 (6.3-8.2) g/dL Albumin 4.7 (3.5-5.0) g/dL Lipase 167 (23-300) U/L Urine Color Urine Appearance (Clear) Urine pH (5.0-8.0) Ur Specific [place] (1.001-1.035) Urine Protein (Negative) Urine Glucose (UA) (Negative) Urine Ketones (Negative) Urine Blood (Negative) Urine Nitrite (Negative) Urine Bilirubin (Negative) Urine Urobilinogen (<2.0) mg/dL Ur Leukocyte Esterase (Negative) Urine RBC (0-5) /hpf Urine WBC (0-5) /hpf Ur Squamous Epith Cells (0-4) /hpf Urine Bacteria (None) /hpf Hyaline Casts (0-2) /lpf Urine Mucus (None) /hpf Urine HCG, Qual (Not Detectd) Acetone, Qual (Negative) 07/04/19 07/04/19 07/04/19 Range/Units 14:57 14:57 14:57 WBC (3.8-10.6) k/uL RBC (3.80-5.40) m/uL Hgb (11.4-16.0) gm/dL Hct (34.0-46.0) % MCV (80.0-100.0) fL MCH (25.0-35.0) pg MCHC (31.0-37.0) g/dL RDW (11.5-15.5) % Plt Count (150-450) k/uL Neutrophils % % Lymphocytes % % Monocytes % % Eosinophils % % Basophils % % Neutrophils # (1.3-7.7) k/uL Lymphocytes # (1.0-4.8) k/uL Monocytes # (0-1.0) k/uL Eosinophils # (0-0.7) k/uL Basophils # (0-0.2) k/uL VBG pH 7.49 H (7.31-7.41) VBG pCO2 25 L (37-51) mmHg VBG HCO3 18 L (24-28) mmol/L Sodium (137-145) mmol/L Potassium (3.5-5.1) mmol/L Chloride (98-107) mmol/L Carbon Dioxide (22-30) mmol/L Anion Gap mmol/L BUN (7-17) mg/dL Creatinine (0.52-1.04) mg/dL Est GFR (CKD-EPI)AfAm (>60 ml/min/1.73 sqM) Est GFR (CKD-EPI)NonAf (>60 ml/min/1.73 sqM) Glucose (74-99) mg/dL POC Glucose (mg/dL) (75-99) mg/dL POC Glu Woodworker ID Calcium (8.4-10.2) mg/dL Phosphorus (2.5-4.5) mg/dL Magnesium (1.6-2.3) mg/dL Total Bilirubin (0.2-1.3) mg/dL AST (14-36) U/L ALT (4-34) U/L Alkaline Phosphatase (38-126) U/L Total Protein (6.3-8.2) g/dL Albumin (3.5-5.0) g/dL Lipase (23-300) U/L Urine Color Yellow Urine Appearance Cloudy H (Clear) Urine pH 6.0 (5.0-8.0) Ur Specific [place] 1.030 (1.001-1.035) Urine Protein 1+ H (Negative) Urine Glucose (UA) 4+ H (Negative) Urine Ketones 2+ H (Negative) Urine Blood Moderate H (Negative) Urine Nitrite Negative (Negative) Urine Bilirubin Negative (Negative) Urine Urobilinogen 3.0 (<2.0) mg/dL Ur Leukocyte Esterase Trace H (Negative) Urine RBC 1 (0-5) /hpf Urine WBC 8 H (0-5) /hpf Ur Squamous Epith Cells 7 H (0-4) /hpf Urine Bacteria Rare H (None) /hpf Hyaline Casts 3 H (0-2) /lpf Urine Mucus Moderate H (None) /hpf Urine HCG, Qual (Not Detectd) Acetone, Qual Negative (Negative) 07/04/19 Range/Units 14:57 WBC (3.8-10.6) k/uL RBC (3.80-5.40) m/uL Hgb (11.4-16.0) gm/dL Hct (34.0-46.0) % MCV (80.0-100.0) fL MCH (25.0-35.0) pg MCHC (31.0-37.0) g/dL RDW (11.5-15.5) % Plt Count (150-450) k/uL Neutrophils % % Lymphocytes % % Monocytes % % Eosinophils % % Basophils % % Neutrophils # (1.3-7.7) k/uL Lymphocytes # (1.0-4.8) k/uL Monocytes # (0-1.0) k/uL Eosinophils # (0-0.7) k/uL Basophils # (0-0.2) k/uL VBG pH (7.31-7.41) VBG pCO2 (37-51) mmHg VBG HCO3 (24-28) mmol/L Sodium (137-145) mmol/L Potassium (3.5-5.1) mmol/L Chloride (98-107) mmol/L Carbon Dioxide (22-30) mmol/L Anion Gap mmol/L BUN (7-17) mg/dL Creatinine (0.52-1.04) mg/dL Est GFR (CKD-EPI)AfAm (>60 ml/min/1.73 sqM) Est GFR (CKD-EPI)NonAf (>60 ml/min/1.73 sqM) Glucose (74-99) mg/dL POC Glucose (mg/dL) (75-99) mg/dL POC Glu Woodworker ID Calcium (8.4-10.2) mg/dL Phosphorus (2.5-4.5) mg/dL Magnesium (1.6-2.3) mg/dL Total Bilirubin (0.2-1.3) mg/dL AST (14-36) U/L ALT (4-34) U/L Alkaline Phosphatase (38-126) U/L Total Protein (6.3-8.2) g/dL Albumin (3.5-5.0) g/dL Lipase (23-300) U/L Urine Color Urine Appearance (Clear) Urine pH (5.0-8.0) Ur Specific [place] (1.001-1.035) Urine Protein (Negative) Urine Glucose (UA) (Negative) Urine Ketones (Negative) Urine Blood (Negative) Urine Nitrite (Negative) Urine Bilirubin (Negative) Urine Urobilinogen (<2.0) mg/dL Ur Leukocyte Esterase (Negative) Urine RBC (0-5) /hpf Urine WBC (0-5) /hpf Ur Squamous Epith Cells (0-4) /hpf Urine Bacteria (None) /hpf Hyaline Casts (0-2) /lpf Urine Mucus (None) /hpf Urine HCG, Qual Not Detected (Not Detectd) Acetone, Qual (Negative) Disposition Clinical Impression: Metabolic acidosis Disposition: ADMITTED IP TO THIS [facility] Condition: Fair Referrals: Mateus Curtis DO [Primary Care Provider] - 1-2 days Decision Time: 16:19
[2019-07-04 15:08] LABS: Basophils % (A) 1 %; Eosinophils # (A) 0.3 k/uL (0-0.7); Eosinophils % (A) 3 %; HCT 48.8 % (34.0-46.0); HGB 16.3 gm/dL (11.4-16.0); Lymphocytes # (A) 1.4 k/uL (1.0-4.8); Lymphocytes % (A) 19 %; MCH 29.2 pg (25.0-35.0); MCHC 33.4 g/dL (31.0-37.0); MCV 87.4 fL (80.0-100.0); Mean Platelet Volume 8.6; Monocytes # (A) 0.6 k/uL (0-1.0); Monocytes % (A) 8 %; Neutrophils # (A) 4.9 k/uL (1.3-7.7); Neutrophils % (A) 66 %; Platelet Count 292 k/uL (150-450); RBC 5.59 m/uL (3.80-5.40); RDW 12.8 % (11.5-15.5); WBC 7.4 k/uL (3.8-10.6)
[2019-07-04 15:09] LABS: VBG PH 7.49 (7.31-7.41)
[2019-07-04 15:23] LABS: ALT 25 U/L (4-34); AST 29 U/L (14-36); African American GFR (CKD) >90 (>60 ml/min/1.73 sqM); Albumin 4.7 g/dL (3.5-5.0); Alkaline Phosphatase 95 U/L (38-126); Anion Gap 14 mmol/L; Blood Urea Nitrogen 20 mg/dL (7-17); Calcium 9.2 mg/dL (8.4-10.2); Carbon Dioxide 17 mmol/L (22-30); Chloride 102 mmol/L (98-107); Glucose 335 mg/dL (74-99); Magnesium 1.8 mg/dL (1.6-2.3); Non-African American GFR(CKD) >90 (>60 ml/min/1.73 sqM); Phosphorus 3.5 mg/dL (2.5-4.5); Potassium 4.7 mmol/L (3.5-5.1); Sodium 133 mmol/L (137-145); Total Bilirubin 0.7 mg/dL (0.2-1.3); Total Protein 7.9 g/dL (6.3-8.2)
[2019-07-04] MEDS ORDERED: INSULIN REGULAR 100 UNIT/ML VIAL IV ONE (15:46)
[2019-07-04 16:08] LABS: Appearance,Urine Cloudy (Clear); Bacteria,Urine Rare /hpf; Bilirubin,Urine Negative (Negative); Blood,Urine Moderate (Negative); Color,Urine Yellow; Glucose,Urine (UA) 4+ (Negative); Hyaline Casts,Urine 3 /lpf (0-2); Leukocyte Esterase,Urine Trace (Negative); Mucus,Urine Moderate /hpf; Nitrite,Urine Negative (Negative); Protein,Urine 1+ (Negative); RBC,Urine 1 /hpf (0-5); Squamous Epithelial Cell,Urine 7 /hpf (0-4); WBC,Urine 8 /hpf (0-5)
[2019-07-04 16:16] LABS: Ketones,Urine 2+ (Negative)
[2019-07-04] MEDS ORDERED: NALOXONE 0.4 MG/ML 1 ML VIAL IV PRN (16:19)
[2019-07-04] MEDS ORDERED: ACETAMINOPHEN TAB 325 MG TAB PO PRN (16:19)
[2019-07-04] MEDS: INSULIN ASPART (NovoLOG) 100 UNIT/ML VIAL SQ SCH ×2 (18:18→21:34)
[2019-07-04] MEDS ORDERED: METHOCARBAMOL 750 MG TAB PO PRN (18:24)
[2019-07-04] MEDS: SODIUM CHLORIDE 0.9% 1,000 ML IV SCH (19:03)
[2019-07-04] MEDS: oxyCODONE-APAP 7.5-325MG 1 EACH TAB PO PRN (19:07)
[2019-07-04 20:05] LABS: Glucose,Whole Blood 282 mg/dL (75-99)
[2019-07-04] MEDS: LACOSAMIDE 50 MG TABLET PO SCH (21:33)
[2019-07-04] MEDS: PREGABALIN 75 MG CAP PO SCH (21:33)
[2019-07-04] MEDS: INSULIN DETEMIR (LEVEMIR) 100 UNIT/ML SYR SQ SCH (21:34)
[2019-07-04] MEDS: ONDANSETRON 4 MG/2 ML VIAL IVP PRN (23:59)
[2019-07-05 01:29] LABS: Glucose,Whole Blood 166 mg/dL (75-99)
[2019-07-05] MEDS: SODIUM CHLORIDE 0.9% 1,000 ML IV SCH ×2 (05:26→14:06)
[2019-07-05 06:52] LABS: Glucose,Whole Blood 163 mg/dL (75-99)
[2019-07-05] MEDS: ONDANSETRON 4 MG/2 ML VIAL IVP PRN ×2 (08:32→17:49)
[2019-07-05] MEDS: SERTRALINE 100 MG TAB PO SCH (08:37)
[2019-07-05] MEDS: PREGABALIN 75 MG CAP PO SCH ×3 (08:37→22:21)
[2019-07-05] MEDS: LACOSAMIDE 50 MG TABLET PO SCH ×2 (08:37→20:29)
[2019-07-05] MEDS: PANTOPRAZOLE 40 MG/10 ML VIAL IVP SCH (08:37)
[2019-07-05] MEDS: INSULIN ASPART (NovoLOG) 100 UNIT/ML VIAL SQ SCH ×6 (08:39→17:49)
[2019-07-05] MEDS: oxyCODONE-APAP 7.5-325MG 1 EACH TAB PO PRN ×2 (10:16→17:48)
[2019-07-05 11:41] LABS: Glucose,Whole Blood 201 mg/dL (75-99)
[2019-07-05 12:00] LABS: HCT 39.7 % (34.0-46.0); MCHC 32.6 g/dL (31.0-37.0); MCV 89.2 fL (80.0-100.0); Mean Platelet Volume 8.5; Platelet Count 251 k/uL (150-450); RBC 4.45 m/uL (3.80-5.40); RDW 12.9 % (11.5-15.5); WBC 8.1 k/uL (3.8-10.6)
[2019-07-05 12:06] LABS: ALT 28 U/L (4-34); AST 46 U/L (14-36); African American GFR (CKD) >90 (>60 ml/min/1.73 sqM); Albumin 3.4 g/dL (3.5-5.0); Alkaline Phosphatase 85 U/L (38-126); Anion Gap 6 mmol/L; Blood Urea Nitrogen 12 mg/dL (7-17); Calcium 8.1 mg/dL (8.4-10.2); Carbon Dioxide 21 mmol/L (22-30); Chloride 108 mmol/L (98-107); Glucose 193 mg/dL (74-99); Non-African American GFR(CKD) >90 (>60 ml/min/1.73 sqM); Sodium 135 mmol/L (137-145); Total Bilirubin 0.4 mg/dL (0.2-1.3); Total Protein 6.2 g/dL (6.3-8.2)
[2019-07-05 12:09] LABS: HGB 12.9 gm/dL (11.4-16.0)
[2019-07-05 12:13] LABS: Potassium 4.7 mmol/L (3.5-5.1)
[2019-07-05] MEDS ORDERED: METOCLOPRAMIDE 5 MG TAB PO SCH (12:30)
[2019-07-05] MEDS: METOCLOPRAMIDE 10 MG TAB PO SCH ×2 (14:06→17:49)
--- NOTE | 2019-07-05 14:06 | P.HPIM ---
History of Present Illness H&P Date: 07/05/19 Chief Complaint: Nausea, vomiting, diarrhea and abdominal pain This is a 43-year-old female patient of Dr. Curtis with past medical history of diabetes mellitus type 2 and diabetic neuropathy, manic depression, gastroesophageal reflux disease, tobacco use and dependence, kidney stones, chronic back pain under pain management with Dr. Bennett, generalized anxiety disorder. Patient complains of onset Thursday of generalized abdominal pain and vomiting and was unable to keep any food, liquids or medication done. She was unable to take her metformin. She denies having any body aches. She denies any fever or chills. Patient presented to [facility] emergency center for evaluation. Patient was afebrile, heart rate 110, blood pressure 139/78, pulse ox 98%. WBC 7.3, hemoglobin 16.3, platelet count 292. Sodium 133, potassium 4.7, chloride 102, CO2 17 BUN 20, creatinine 0.52, blood sugar 335. Liver function tests within normal limits lipase 167. Urinalysis cloudy, blood moderate, nitrate negative, leukoesterase trace, epithelial cells 7. Acetone negative. HCG not detected. EKG normal sinus rhythm with no acute changes. Patient was given Zofran, regular insulin, 2 L of IV fluid and admitted to the [facility] floor. Patient is eating all of her meals, consistent carb diet, but feels "sick" after she eats. She remains afebrile and vital signs are stable. monitor technician has been a sinus rhythm. Review of Systems Constitutional: Denies chills, Denies fatigue, Denies fever, Denies lethargy, Denies malaise, Denies poor appetite, Denies weakness Eyes: denies blurred vision, denies pain Ears, nose, mouth and throat: Denies dental pain, Denies headache, Denies nasal congestion, Denies nasal discharge, Denies sore throat, Denies vertigo Cardiovascular: Denies chest pain, Denies decreased exercise tolerance, Denies dyspnea on exertion, Denies edema, Denies leg edema, Denies lightheadedness, Denies shortness of breath, Denies syncope Respiratory: Denies cough, Denies cough with sputum, Denies dyspnea, Denies excessive sputum, Denies hemoptysis, Denies home oxygen, Denies respiratory infections, Denies wheezing Gastrointestinal: Reports abdominal pain, Reports diarrhea, Reports nausea, Reports vomiting, Denies BRBPR, Denies constipation, Denies jaundice, Denies loss of appetite Genitourinary: Denies dysuria, Denies hematuria, Denies urgency, Denies urinary frequency Musculoskeletal: Denies frequent falls, Denies gait dysfunction, Denies muscle weakness, Denies myalgias Integumentary: Denies pruritus, Denies rash, Denies wounds Neurological: Denies change in mentation, Denies change in speech, Denies gait dysfunction, Denies numbness, Denies seizures, Denies weakness Psychiatric: Denies anxiety, Denies depression Endocrine: Denies fatigue, Denies weight change Past Medical History Past Medical History: Diabetes Mellitus, Pneumonia Additional Past Medical History / Comment(s): BRONCHITIS, KIDNEY STONES,UTI, ANXIETY ,BIPOLAR DEPRESSION chronic back pain History of Any Multi-Drug Resistant Organisms: None Reported Past Surgical History: Cholecystectomy Additional Past Surgical History / Comment(s): PAST MED HX LISTED CERCLAGE PROCEDURE X2 Past Anesthesia/Blood Transfusion Reactions: Postoperative Nausea & Vomiting (P ONV) Past Psychological History: Anxiety, Bipolar, Depression Additional Psychological History / Comment(s): PT STATED HAS'NT BEEN ON HER MEDS SINCE SHE HAS BEEN . AT TIME OF ADMIT DENIES ANY THOUGHTS OF HARMING SELF, NO SUICIDAL IDEATION. 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 Past Drug Use History: None Reported - Past Family History Mother Family Medical History: Congestive Heart Failure (CHF), Diabetes Mellitus, Hyperlipidemia, Hypertension Additional Family Medical History / Comment(s): Mother at age 79 from diabetes, occasions. KIDNEY FAILURE Father Family Medical History: Diabetes Mellitus Additional Family Medical History / Comment(s): Father at 89 from old age with history of diabetes. COLLAPSED LUNG Brother(s) Additional Family Medical History / Comment(s): Patient has a total of 5 brothers. One has passed with history of diabetes. A second brother does have diabetes and alive. Patient has 6 sisters and she does not know any other medical history. Patient has 3 children: 2 daughters and 1 son with no major medical problems. Medications and Allergies Home Medications Medication Instructions Recorded Confirmed Type Albuterol Inhaler [Ventolin Hfa 2 puff INHALATION RT-QID PRN 07/04/19 07/04/19 History Inhaler] Lacosamide [Vimpat] 100 mg PO BID 07/04/19 07/04/19 History Methocarbamol [Robaxin-750] 750 mg PO TID PRN 07/04/19 07/04/19 History Naproxen 500 mg PO TID PRN 07/04/19 07/04/19 History Pregabalin [Lyrica] 150 mg PO TID 07/04/19 07/04/19 History Sertraline [Zoloft] 100 mg PO DAILY 07/04/19 07/04/19 History metFORMIN HCL 1,000 mg PO BID 07/04/19 07/04/19 History oxyCODONE-APAP 7.5-325MG [Percocet 1 tab PO TID PRN 07/04/19 07/04/19 History 7.5-325 mg] Allergies Allergy/AdvReac Type Severity Reaction Status Date / Time clarithromycin [From Biaxin] Allergy Unknown Verified 07/04/19 15:54 BBE STINGS Allergy Unknown Uncoded 05/21/19 06:52 MACULIDE Allergy Unknown Uncoded 05/21/19 06:52 Physical Exam Vitals: Vital Signs Temp Pulse Pulse Resp BP BP Pulse Ox 07/05/19 04:32 97.9 F 72 18 102/59 95 07/04/19 20:00 97.9 F 85 18 98/63 96 07/04/19 17:38 97.4 F L 96 17 109/66 96 07/04/19 14:29 98 F 110 H 18 139/79 98 Intake and Output 07/04/19 07/05/19 07/05/19 22:59 06:59 14:59 Intake Total 960 Balance 960 Intake: Intake, IV Titration 960 Amount Sodium Chloride 0.9% 1, 960 000 ml @ 120 mls/hr IV . Q8H20M [facility] Rx#:[id number] Other: Voiding Method Toilet # Voids 1 # Bowel Movements 1 Weight 79.379 kg Gen: This is a 43-year-old obese female. Patient is resting in bed and appears to be comfortable and in no acute distress. HEENT: Head is atraumatic, normocephalic. Pupils equal, round. Sclerae is an icteric. NECK: Supple. No JVD. No lymphadenopathy. No thyromegaly. LUNGS: Clear to auscultation. No wheezes or rhonchi. No intercostal retractions. HEART: Regular rate and rhythm. No murmur. ABDOMEN: Soft. Bowel sounds are present. No masses. Mild diffuse tenderness. EXTREMITIES: No pedal edema. No calf tenderness. NEUROLOGICAL: Patient is awake, alert and oriented x3. Cranial nerves 2 through 12 are grossly intact. Results CBC & Chem 7: 07/05/19 11:37 07/05/19 11:37 Labs: Abnormal Lab Results - Last 24 Hours (Table) 07/04/19 07/04/19 07/04/19 Range/Units 14:31 14:57 14:57 RBC 5.59 H (3.80-5.40) m/uL Hgb 16.3 H (11.4-16.0) gm/dL Hct 48.8 H (34.0-46.0) % VBG pH (7.31-7.41) VBG pCO2 (37-51) mmHg VBG HCO3 (24-28) mmol/L Sodium 133 L (137-145) mmol/L Carbon Dioxide 17 L (22-30) mmol/L BUN 20 H (7-17) mg/dL Glucose 335 H (74-99) mg/dL POC Glucose (mg/dL) 320 H (75-99) mg/dL Urine Appearance (Clear) Urine Protein (Negative) Urine Glucose (UA) (Negative) Urine Ketones (Negative) Urine Blood (Negative) Ur Leukocyte Esterase (Negative) Urine WBC (0-5) /hpf Ur Squamous Epith Cells (0-4) /hpf Urine Bacteria (None) /hpf Hyaline Casts (0-2) /lpf Urine Mucus (None) /hpf 07/04/19 07/04/19 07/04/19 Range/Units 14:57 14:57 20:01 RBC (3.80-5.40) m/uL Hgb (11.4-16.0) gm/dL Hct (34.0-46.0) % VBG pH 7.49 H (7.31-7.41) VBG pCO2 25 L (37-51) mmHg VBG HCO3 18 L (24-28) mmol/L Sodium (137-145) mmol/L Carbon Dioxide (22-30) mmol/L BUN (7-17) mg/dL Glucose (74-99) mg/dL POC Glucose (mg/dL) 282 H (75-99) mg/dL Urine Appearance Cloudy H (Clear) Urine Protein 1+ H (Negative) Urine Glucose (UA) 4+ H (Negative) Urine Ketones 2+ H (Negative) Urine Blood Moderate H (Negative) Ur Leukocyte Esterase Trace H (Negative) Urine WBC 8 H (0-5) /hpf Ur Squamous Epith Cells 7 H (0-4) /hpf Urine Bacteria Rare H (None) /hpf Hyaline Casts 3 H (0-2) /lpf Urine Mucus Moderate H (None) /hpf 07/05/19 07/05/19 Range/Units 01:27 06:47 RBC (3.80-5.40) m/uL Hgb (11.4-16.0) gm/dL Hct (34.0-46.0) % VBG pH (7.31-7.41) VBG pCO2 (37-51) mmHg VBG HCO3 (24-28) mmol/L Sodium (137-145) mmol/L Carbon Dioxide (22-30) mmol/L BUN (7-17) mg/dL Glucose (74-99) mg/dL POC Glucose (mg/dL) 166 H 163 H (75-99) mg/dL Urine Appearance (Clear) Urine Protein (Negative) Urine Glucose (UA) (Negative) Urine Ketones (Negative) Urine Blood (Negative) Ur Leukocyte Esterase (Negative) Urine WBC (0-5) /hpf Ur Squamous Epith Cells (0-4) /hpf Urine Bacteria (None) /hpf Hyaline Casts (0-2) /lpf Urine Mucus (None) /hpf Thrombosis Risk Factor Assmnt - DVT/VTE Prophylaxis DVT/VTE Prophylaxis: Pharmacologic Prophylaxis ordered - Choose All That Apply Each Factor Represents 1 point: Age 41-60 years Thrombosis Risk Factor Assessment Total Risk Factor Score: 1 Thrombosis Risk Factor Assessment Level: Low Risk Assessment and Plan Plan: 1. Dehydration secondary to nausea, vomiting, diarrhea, possibly related to gastroparesis. Start Reglan 10 mg 3 times daily. Patient is status post 2 L of IV fluids. IV fluids currently 120 mL per hour. Will be discontinued. 2. Diabetes mellitus type 2 uncontrolled with hyperglycemia. Glutamic acid decarboxylase antibodies and A1c ordered. Continue Levemir 16 units at bedtime, NovoLog scheduled 6 units with meals and NovoLog scale. Status post IV fluids. Hold metformin. 3. Metabolic acidosis secondary to hyperglycemia. 4. History of kidney stones, stable. 5. Chronic back pain, stable. Continue Lyrica 150 mg 3 times daily, Percocet one 3 times daily as needed, Robaxin 750 mg 4 times daily as needed. 6. Bipolar disorder. Continue Zoloft 100 mg daily, Vimpat 100 mg twice daily, Lyrica. 7. Tobacco use and dependence. 8. GI prophylaxis. Protonix. 9. DVT prophylaxis. Lovenox. Patient will be admitted to the hospital for a minimum of 2 night stay. Discharge plan: home on Thursday Impression and plan of care have been directed as dictated by the signing physician. Elysia Duffy nurse practitioner acting as scribe for signing physician.
[2019-07-05 16:36] LABS: Hemoglobin A1C 9.2 % (4.0-6.0)
[2019-07-05 17:01] LABS: Glucose,Whole Blood 202 mg/dL (75-99)
[2019-07-05 20:18] LABS: Glucose,Whole Blood 221 mg/dL (75-99)
[2019-07-05] MEDS: INSULIN DETEMIR (LEVEMIR) 100 UNIT/ML SYR SQ SCH (20:28)
[2019-07-06] MEDS: ONDANSETRON 4 MG/2 ML VIAL IVP PRN (01:49)
[2019-07-06 04:11] VITALS: TEMP 98.2
[2019-07-06 06:42] LABS: Glucose,Whole Blood 200 mg/dL (75-99)
[2019-07-06 07:09] LABS: ALT 24 U/L (4-34); AST 24 U/L (14-36); African American GFR (CKD) >90 (>60 ml/min/1.73 sqM); Albumin 3.5 g/dL (3.5-5.0); Alkaline Phosphatase 126 U/L (38-126); Anion Gap 8 mmol/L; Blood Urea Nitrogen 13 mg/dL (7-17); Calcium 8.2 mg/dL (8.4-10.2); Carbon Dioxide 22 mmol/L (22-30); Chloride 107 mmol/L (98-107); Glucose 208 mg/dL (74-99); Non-African American GFR(CKD) >90 (>60 ml/min/1.73 sqM); Potassium 4.7 mmol/L (3.5-5.1); Sodium 137 mmol/L (137-145); Total Bilirubin 0.2 mg/dL (0.2-1.3); Total Protein 6.2 g/dL (6.3-8.2)
[2019-07-06] MEDS: SERTRALINE 100 MG TAB PO SCH (07:42)
[2019-07-06] MEDS: PREGABALIN 75 MG CAP PO SCH ×2 (07:42→16:36)
[2019-07-06] MEDS: INSULIN ASPART (NovoLOG) 100 UNIT/ML VIAL SQ SCH ×6 (07:43→17:04)
[2019-07-06] MEDS: PANTOPRAZOLE 40 MG/10 ML VIAL IVP SCH (07:43)
[2019-07-06] MEDS: LACOSAMIDE 50 MG TABLET PO SCH (07:43)
[2019-07-06] MEDS: METOCLOPRAMIDE 10 MG TAB PO SCH ×3 (07:43→16:36)
[2019-07-06] MEDS ORDERED: ONDANSETRON 4 MG TAB PO PRN (10:16)
[2019-07-06] MEDS: metFORMIN 500 MG TAB PO SCH ×2 (10:48→17:03)
[2019-07-06] MEDS: oxyCODONE-APAP 7.5-325MG 1 EACH TAB PO PRN (10:48)
[2019-07-06 11:35] LABS: Glucose,Whole Blood 154 mg/dL (75-99)
[2019-07-06 12:55] VITALS: BMI 30.9
[2019-07-06 13:07] VITALS: BP 121/75; RESP 16
--- NOTE | 2019-07-06 13:43 | P.DS ---
Providers Date of admission: 07/04/19 16:19 Expected date of discharge: 07/06/19 Attending physician: Herman Reid Primary care physician: Mateus JiménezKirsten [place] [facility] Course: This is a 43-year-old female patient of Dr. Curtis with past medical history of diabetes mellitus type 2 and diabetic neuropathy, manic depression, gastroesophageal reflux disease, tobacco use and dependence, kidney stones, chronic back pain under pain management with Dr. Bennett, generalized anxiety disorder. Patient complains of onset Thursday of generalized abdominal pain and vomiting and was unable to keep any food, liquids or medication done. She was unable to take her metformin. She denies having any body aches. She denies any fever or chills. Patient presented to [facility] emergency center for evaluation. Patient was afebrile, heart rate 110, blood pressure 139/78, pulse ox 98%. WBC 7.3, hemoglobin 16.3, platelet count 292. Sodium 133, potassium 4.7, chloride 102, CO2 17 BUN 20, creatinine 0.52, blood sugar 335. Liver function tests within normal limits lipase 167. Urinalysis cloudy, blood moderate, nitrate negative, leukoesterase trace, epithelial cells 7. Acetone negative. HCG not detected. EKG normal sinus rhythm with no acute changes. Patient was given Zofran, regular insulin, 2 L of IV fluid and [facility]. Patient is eating all of her meals, consistent carb diet, but feels "sick" after she eats. She remains afebrile and vital signs are stable. hall monitor has been a sinus rhythm. 07/05: Hemoglobin A1c is 9.2. Patient states that her glucometer is broken but her PCP ordered her a new one in November 2017. manager supply chain is followed up with [employer] and they will send one to her home. Glutamic acid decarboxylase antibodies results remain pending. Blood sugars are currently running in the 200s and patient is on Levemir 16 units at bedtime, NovoLog 6 units with meals along with scale. Metformin remains on hold. Repeat lambert today reveals normal electrolytes, BUN and creatinine, liver function tests. Total protein 6.2 and calcium 8.2. Patient has been afebrile, heart rate 80, blood pressure 121/60, pulse ox 95% on room air. Patient states that she is not feeling right. She ate 100% of her breakfast but then feels nauseated. She denies any vomiting. We will resume metformin and patient will be discharged on insulin. Patient will be discharged home today in stable condition. She will also receive Reglan for home. Discharge diagnoses: 1. Dehydration secondary to nausea, vomiting, diarrhea, possibly related to gastroparesis. 2. Diabetes mellitus type 2 uncontrolled with hyperglycemia. Glutamic acid decarboxylase antibodies pending. 3. Metabolic acidosis secondary to hyperglycemia. 4. History of kidney stones, stable. 5. Chronic back pain, stable. 6. Bipolar disorder. 7. Tobacco use and dependence. Discharge plan: home Impression and plan of care have been directed as dictated by the signing physician. Elysia Duffy nurse practitioner acting as scribe for signing physician. Patient Condition at Discharge: Good Plan - Discharge Summary New Discharge Prescriptions: New Insulin Detemir [Levemir Flextouch] 20 units SQ HS #3 pen Insulin Aspart [NovoLOG Flexpen] 6 units SQ AC-TID #3 pen Metoclopramide [Reglan] 5 mg PO AC-TID #90 tab Continue Sertraline [Zoloft] 100 mg PO DAILY Lacosamide [Vimpat] 100 mg PO BID Pregabalin [Lyrica] 150 mg PO TID oxyCODONE-APAP 7.5-325MG [Percocet 7.5-325 mg] 1 tab PO TID PRN PRN Reason: Pain Naproxen 500 mg PO TID PRN PRN Reason: Pain Methocarbamol [Robaxin-750] 750 mg PO TID PRN PRN Reason: Muscle Pain metFORMIN HCL 1,000 mg PO BID Albuterol Inhaler [Ventolin Hfa Inhaler] 2 puff INHALATION RT-QID PRN PRN Reason: Shortness Of Breath Discharge Medication List Albuterol Inhaler [Ventolin Hfa Inhaler] 2 puff INHALATION RT-QID PRN 07/04/19 [History] Lacosamide [Vimpat] 100 mg PO BID 07/04/19 [History] Methocarbamol [Robaxin-750] 750 mg PO TID PRN 07/04/19 [History] Naproxen 500 mg PO TID PRN 07/04/19 [History] Pregabalin [Lyrica] 150 mg PO TID 07/04/19 [History] Sertraline [Zoloft] 100 mg PO DAILY 07/04/19 [History] metFORMIN HCL 1,000 mg PO BID 07/04/19 [History] oxyCODONE-APAP 7.5-325MG [Percocet 7.5-325 mg] 1 tab PO TID PRN 07/04/19 [History] Insulin Aspart [NovoLOG Flexpen] 6 units SQ AC-TID #3 pen 07/06/19 [Rx] Insulin Detemir [Levemir Flextouch] 20 units SQ HS #3 pen 07/06/19 [Rx] Metoclopramide [Reglan] 5 mg PO AC-TID #90 tab 07/06/19 [Rx] Follow up Appointment(s)/Referral(s): Mateus Curtis DO [Primary Care Provider] - 1 Week (Office will be in contact with you upon discharge to set up a follow up appointment) Discharge Disposition: HOME SELF-CARE
[2019-07-06 15:25] VITALS: PULSE 78
[2019-07-06 16:51] LABS: Glucose,Whole Blood 148 mg/dL (75-99)
[2019-07-06] MEDS ORDERED: INSULIN DETEMIR (LEVEMIR) 100 UNIT/ML SYR SQ SCH (21:00)
== END 2019-07-06 18:02 | disposition home or self-care (01) | DRG 74 ==
LOC: EC 14:19 → 5NMEDONC 16:19
PROVIDERS: ADMIT Internal Medicine; ATTEND Internal Medicine
DX: E11.43 Type 2 diabetes mellitus with diabetic autonomic (poly)neuropathy (principal); E87.2 Acidosis; E86.0 Dehydration; F41.1 Generalized anxiety disorder; F31.9 Bipolar disorder, unspecified; F17.200 Nicotine dependence, unspecified, uncomplicated; E11.40 Type 2 diabetes mellitus with diabetic neuropathy, unspecified; G89.29 Other chronic pain; K31.84 Gastroparesis; E11.65 Type 2 diabetes mellitus with hyperglycemia; M54.9 Dorsalgia, unspecified; Z98.890 Other specified postprocedural states; Z84.1 Family history of disorders of kidney and ureter; Z83.6 Family history of other diseases of the respiratory system; Z90.49 Acquired absence of other specified parts of digestive tract; Z79.4 Long term (current) use of insulin; Z79.899 Other long term (current) drug therapy; Z82.49 Family history of ischemic heart disease and other diseases of the circulatory system; Z83.3 Family history of diabetes mellitus; Z87.442 Personal history of urinary calculi; Z88.1 Allergy status to other antibiotic agents; Z91.030 Bee allergy status; Z87.01 Personal history of pneumonia (recurrent); Z87.440 Personal history of urinary (tract) infections
CPT/HCPCS: 36415; 80053; 81001; 81025; 82009; 82803; 83036; 83519; 83690; 83735; 84100; 85025; 85027; 93005; 96361; 96374; 99285

== ENCOUNTER 2019-08-11 15:50 | Emergency (ER) | payer OTHER ==
[2019-08-11 15:59] VITALS: TEMP 97.5
--- NOTE | 2019-08-11 17:01 | CT ---
EXAMINATION TYPE: CT brain vivianaine wo con DATE OF EXAM: 08/11/2019 COMPARISON: 07/27/2018 HISTORY: Numbness to bilat hands, worse on right. CT DLP: 1574.8 mGycm. Automated Exposure Control for Dose Reduction was Utilized. TECHNIQUE: CT scan of the head and cervical spine are performed without contrast. FINDINGS: There is no acute intracranial hemorrhage, mass effect, or midline shift identified. The ventricles and sulci are within normal limits in size. The globes are intact and the visualized sin uses are clear other than mild mucosal thickening in the maxillary and ethmoid sinuses. Spinal canal is limited on CT. Cervical spine is visualized in its entirety from C1 through upper tho racic levels and demonstrates satisfactory alignment without evidence of acute fracture or dislocatio n. Prevertebral soft tissue appears within normal limits. Mild neural foraminal narrowing on the lef t at C3-C4 due to uncovertebral hypertrophy and facet arthropathy. Mild multilevel intervertebral dis c space narrowing and small anterior osteophytes. The C1-C2 articulation is unremarkable. IMPRESSION: 1. There is no acute fracture or dislocation evident in the cervical spine. Mild multilevel degenerat kristie disc disease of the cervical spine. 2. No acute intracranial hemorrhage, mass effect, or midline shift is seen.
[2019-08-11 17:30] LABS: Appearance,Urine Clear (Clear); Bilirubin,Urine Negative (Negative); Blood,Urine Negative (Negative); Color,Urine Colorless; Glucose,Urine (UA) Negative (Negative); Ketones,Urine Negative (Negative); Leukocyte Esterase,Urine Negative (Negative); Nitrite,Urine Negative (Negative); PH, Urine 6.5 (5.0-8.0); Protein,Urine Negative (Negative); Specific Gravity,Urine 1.003 (1.001-1.035); Urobilinogen,Urine <2.0 mg/dL (<2.0)
[2019-08-11 17:40] LABS: ALT 20 U/L (4-34); AST 37 U/L (14-36); African American GFR (CKD) >90 (>60 ml/min/1.73 sqM); Albumin 4.5 g/dL (3.5-5.0); Alkaline Phosphatase 90 U/L (38-126); Anion Gap 10 mmol/L; Blood Urea Nitrogen 22 mg/dL (7-17); Calcium 9.3 mg/dL (8.4-10.2); Carbon Dioxide 22 mmol/L (22-30); Chloride 106 mmol/L (98-107); Glucose 61 mg/dL (74-99); Non-African American GFR(CKD) >90 (>60 ml/min/1.73 sqM); Sodium 138 mmol/L (137-145); Total Bilirubin 0.7 mg/dL (0.2-1.3)
[2019-08-11 17:48] LABS: Basophils # (A) 0.2 k/uL (0-0.2); Basophils % (A) 2 %; Eosinophils # (A) 0.5 k/uL (0-0.7); Eosinophils % (A) 5 %; HCT 43.6 % (34.0-46.0); HGB 14.2 gm/dL (11.4-16.0); Lymphocytes # (A) 1.5 k/uL (1.0-4.8); Lymphocytes % (A) 16 %; MCH 28.2 pg (25.0-35.0); MCHC 32.5 g/dL (31.0-37.0); MCV 86.9 fL (80.0-100.0); Mean Platelet Volume 8.2; Monocytes # (A) 0.5 k/uL (0-1.0); Monocytes % (A) 5 %; Neutrophils # (A) 6.3 k/uL (1.3-7.7); Neutrophils % (A) 69 %; Platelet Count 264 k/uL (150-450); RBC 5.02 m/uL (3.80-5.40); RDW 14.8 % (11.5-15.5); WBC 9.1 k/uL (3.8-10.6)
[2019-08-11] MEDS ORDERED: ACETAMINOPHEN TAB 325 MG TAB PO STA (18:31)
--- NOTE | 2019-08-11 20:11 | ED ---
General Adult HPI - General Chief complaint: Neuro Symptoms/Deficit Stated complaint: Arm Numbness Time Seen by Provider: 08/11/19 16:06 Source: patient, RN notes reviewed, old records reviewed Mode of arrival: wheelchair Limitations: no limitations - History of Present Illness Initial comments: 43-year-old female patient with history of type 2 diabetes presents to ED for evaluation of bilateral upper extremity paresthesias. Patient does also report that she has some pain in her right hand. Patient denies any areas of weakness, denies facial droop or any other paresthesias. Denies any chance of being . Systemic: Pt denies fatigue, fever/chills, rash. Pt denies weakness, night sweats, weight loss. Neuro: Pt denies headache, visual disturbances, syncope or pre-syncope. HEENT: Pt denies ocular discharge or irritation, otalgia, rhinorrhea, pharyngitis or notable lymphadenopathy. Cardiopulmonary: Pt denies chest pain, SOB, heart palpitations, dyspnea on exertion. Abdominal/GI: Pt denies abdominal pain, n/v/d. : Pt denies dysuria, burning w/ urination, frequency/urgency. Denies new onset urinary or bowel incontinence. MSK: Pt denies myalgia, loss of strength or function in extremities. Neuro: Pt denies new onset weakness. - Related Data Home Medications Medication Instructions Recorded Confirmed Albuterol Inhaler (Mhu) [Ventolin 2 puff INHALATION RT-QID PRN 07/04/19 07/04/19 Hfa Inhaler (Mhu)] Lacosamide [Vimpat] 100 mg PO BID 07/04/19 07/04/19 Methocarbamol [Robaxin-750] 750 mg PO TID PRN 07/04/19 07/04/19 Naproxen 500 mg PO TID PRN 07/04/19 07/04/19 Pregabalin [Lyrica] 150 mg PO TID 07/04/19 07/04/19 Sertraline [Zoloft] 100 mg PO DAILY 07/04/19 07/04/19 metFORMIN HCL 1,000 mg PO BID 07/04/19 07/04/19 oxyCODONE-APAP 7.5-325MG [Percocet 1 tab PO TID PRN 07/04/19 07/04/19 7.5-325 mg] Previous Rx's Medication Instructions Recorded Insulin Aspart [NovoLOG Flexpen] 6 units SQ AC-TID #3 pen 07/06/19 Insulin Detemir [Levemir Flextouch] 20 units SQ HS #3 pen 07/06/19 Metoclopramide [Reglan] 5 mg PO AC-TID #90 tab 07/06/19 Allergies Allergy/AdvReac Type Severity Reaction Status Date / Time clarithromycin [From Biaxin] Allergy Unknown Verified 08/11/19 15:59 BBE STINGS Allergy Unknown Uncoded 08/11/19 15:59 MACULIDE Allergy Unknown Uncoded 08/11/19 15:59 Review of Systems ROS Statement: Those systems with pertinent positive or pertinent negative responses have been documented in the HPI. ROS Other: All systems not noted in ROS Statement are negative. Past Medical History Past Medical History: Diabetes Mellitus, Pneumonia Additional Past Medical History / Comment(s): BRONCHITIS, KIDNEY STONES,UTI, ANXIETY ,BIPOLAR DEPRESSION chronic back pain History of Any Multi-Drug Resistant Organisms: None Reported Past Surgical History: Cholecystectomy Additional Past Surgical History / Comment(s): PAST MED HX LISTED CERCLAGE PROCEDURE X2 Past Anesthesia/Blood Transfusion Reactions: Postoperative Nausea & Vomiting (PONV) Past Psychological History: Anxiety, Bipolar, Depression Smoking Status: Current every day smoker Past Alcohol Use History: None Reported Past Drug Use History: None Reported - Past Family History Mother Family Medical History: Congestive Heart Failure (CHF), Diabetes Mellitus, Hyperlipidemia, Hypertension Additional Family Medical History / Comment(s): Mother at age 79 from diabetes, occasions. KIDNEY FAILURE Father Family Medical History: Diabetes Mellitus Additional Family Medical History / Comment(s): Father at 89 from old age with history of diabetes. COLLAPSED LUNG Brother(s) Additional Family Medical History / Comment(s): Patient has a total of 5 brothers. One has passed with history of diabetes. A second brother does have diabetes and alive. Patient has 6 sisters and she does not know any other me dical history. Patient has 3 children: 2 daughters and 1 son with no major medical problems. General Exam - General Exam Comments Initial Comments: Constitutional: NAD, AOX3, Pt has pleasant affect. HEENT: NC/AT, trachea midline, neck supple, no lymphadenopathy. Posterior pharynx non erythematous, without exudates. External ears appear normal, without discharge. Mucous membranes moist. Eyes PERRLA, EOM intact. There is no scleral icterus. No pallor noted. Cardiopulmonary: RRR, no murmurs, rubs or gallops, no JVD noted. Lungs CTAB in anterior and posterior handley. No peripheral edema. Abdominal exam: Abdomen soft and non-distended. Abdomen non-tender to palpation in all 4 quadrants. Bowel sounds active in LLQ. No hepatosplenomegaly. No ecchymosis Neuro: CN II-XII intact. No nuchal rigidity. No raccon eyes, no parker sign, no hemotympanum. No cervical spinal tenderness. NIH is 0. Asphalt Blender strength is equal bilaterally. MSK: No posterior calf tenderness bilaterally, homans sign negative bilaterally. Posterior tibialis and radial pulse +2 bilaterally. Sensation intact in upper and lower extremities. Full active ROM in upper and lower extremities, 5/5 stregnth. Limitations: no limitations Course Vital Signs 08/11/19 15:56 Temperature 97.5 F L Pulse Rate 77 Respiratory 18 Rate Blood Pressure 121/66 O2 Sat by Pulse 99 Oximetry Medical Decision Making - Medical Decision Making 43-year-old female patient with history of type 2 diabetes presents to ED for evaluation of bilateral upper extremity paresthesias. Patient does also report that she has some pain in her right hand. Patient denies any areas of weakness, denies facial droop or any other paresthesias. Denies any chance of being . Vital signs are stable, afebrile. Physical exam for intact neurologic exam. Sensation is intact in upper extremities as well.Strength is equal. There is no facial droop or any sign of CVA. 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 CT brain C-spine was obtained this does not display any acute fracture dislocation cervical spine however did display mild multi degenerative disc disease. No acute intracranial hemorrhage or mass effect or midline shift is seen. Laboratory investigations are obtained and are noncompressive. Troponin is negative. EKG is nonischemic. Patient was discharged with orthopedic follow-up. Patient does reportedly take Percocet for chronic back pain, stated that she does need a medication she can take these. Case discussed with Dr. Moran. - Lab Data Result diagrams: 08/11/19 17:35 08/11/19 17:15 Lab Results 08/11/19 08/11/19 08/11/19 Range/Units 17:15 17:15 17:15 WBC (3.8-10.6) k/uL RBC (3.80-5.40) m/uL Hgb (11.4-16.0) gm/dL Hct (34.0-46.0) % MCV (80.0-100.0) fL MCH (25.0-35.0) pg MCHC (31.0-37.0) g/dL RDW (11.5-15.5) % Plt Count (150-450) k/uL Neutrophils % % Lymphocytes % % Monocytes % % Eosinophils % % Basophils % % Neutrophils # (1.3-7.7) k/uL Lymphocytes # (1.0-4.8) k/uL Monocytes # (0-1.0) k/uL Eosinophils # (0-0.7) k/uL Basophils # (0-0.2) k/uL Sodium 138 (137-145) mmol/L Potassium 5.0 (3.5-5.1) mmol/L Chloride 106 (98-107) mmol/L Carbon Dioxide 22 (22-30) mmol/L Anion Gap 10 mmol/L BUN 22 H (7-17) mg/dL Creatinine 0.54 (0.52-1.04) mg/dL Est GFR (CKD-EPI)AfAm >90 (>60 ml/min/1.73 sqM) Est GFR (CKD-EPI)NonAf >90 (>60 ml/min/1.73 sqM) Glucose 61 L (74-99) mg/dL Calcium 9.3 (8.4-10.2) mg/dL Total Bilirubin 0.7 (0.2-1.3) mg/dL AST 37 H (14-36) U/L ALT 20 (4-34) U/L Alkaline Phosphatase 90 (38-126) U/L Troponin I (0.000-0.034) ng/mL Total Protein 8.0 (6.3-8.2) g/dL Albumin 4.5 (3.5-5.0) g/dL Urine Color Colorless Urine Appearance Clear (Clear) Urine pH 6.5 (5.0-8.0) Ur Specific [place] 1.003 (1.001-1.035) Urine Protein Negative (Negative) Urine Glucose (UA) Negative (Negative) Urine Ketones Negative (Negative) Urine Blood Negative (Negative) Urine Nitrite Negative (Negative) Urine Bilirubin Negative (Negative) Urine Urobilinogen <2.0 (<2.0) mg/dL Ur Leukocyte Esterase Negative (Negative) Urine HCG, Qual Not Detected (Not Detectd) 08/11/19 08/11/19 Range/Units 17:35 17:35 WBC 9.1 (3.8-10.6) k/uL RBC 5.02 (3.80-5.40) m/uL Hgb 14.2 (11.4-16.0) gm/dL Hct 43.6 (34.0-46.0) % MCV 86.9 (80.0-100.0) fL MCH 28.2 (25.0-35.0) pg MCHC 32.5 (31.0-37.0) g/dL RDW 14.8 (11.5-15.5) % Plt Count 264 (150-450) k/uL Neutrophils % 69 % Lymphocytes % 16 % Monocytes % 5 % Eosinophils % 5 % Basophils % 2 % Neutrophils # 6.3 (1.3-7.7) k/uL Lymphocytes # 1.5 (1.0-4.8) k/uL Monocytes # 0.5 (0-1.0) k/uL Eosinophils # 0.5 (0-0.7) k/uL Basophils # 0.2 (0-0.2) k/uL Sodium (137-145) mmol/L Potassium (3.5-5.1) mmol/L Chloride (98-107) mmol/L Carbon Dioxide (22-30) mmol/L Anion Gap mmol/L BUN (7-17) mg/dL Creatinine (0.52-1.04) mg/dL Est GFR (CKD-EPI)AfAm (>60 ml/min/1.73 sqM) Est GFR (CKD-EPI)NonAf (>60 ml/min/1.73 sqM) Glucose (74-99) mg/dL Calcium (8.4-10.2) mg/dL Total Bilirubin (0.2-1.3) mg/dL AST (14-36) U/L ALT (4-34) U/L Alkaline Phosphatase (38-126) U/L Troponin I <0.012 (0.000-0.034) ng/mL Total Protein (6.3-8.2) g/dL Albumin (3.5-5.0) g/dL Urine Color Urine Appearance (Clear) Urine pH (5.0-8.0) Ur Specific [place] (1.001-1.035) Urine Protein (Negative) Urine Glucose (UA) (Negative) Urine Ketones (Negative) Urine Blood (Negative) Urine Nitrite (Negative) Urine Bilirubin (Negative) Urine Urobilinogen (<2.0) mg/dL Ur Leukocyte Esterase (Negative) Urine HCG, Qual (Not Detectd) - EKG Data -: EKG Interpreted by Me (and Dr. Moran ) EKG Comments: Ventricular rate 71, RI interval 190, QRS 66, QT/QTC 300 uses 425. Normal S1, will QRS. Possible septal infarct age undetermined. No significant change from prior. No concern for acute ischemia. Disposition Clinical Impression: Paresthesias, Arm pain Disposition: HOME SELF-CARE Condition: Stable Instructions (If sedation given, give patient instructions): Paresthesia (ED) Additional Instructions: Follow-up with primary care provider as well as orthopedic consult tomorrow. Return to ER if condition worsen Is patient prescribed a controlled substance at d/c from ED?: No Referrals: Mateus Curtis DO [Primary Care Provider] - 1-2 days Mohit Jerome DO [Medical Doctor] - 1-2 days
[2019-08-11 20:46] VITALS: BP 97/72; PULSE 78; RESP 20
== END 2019-08-11 20:20 | disposition home or self-care (01) ==
LOC: EC 15:50
DX: R20.2 Paresthesia of skin (principal); M79.602 Pain in left arm; M79.601 Pain in right arm; R20.0 Anesthesia of skin; M54.9 Dorsalgia, unspecified; G89.29 Other chronic pain; E11.9 Type 2 diabetes mellitus without complications; F41.9 Anxiety disorder, unspecified; F31.9 Bipolar disorder, unspecified; F17.200 Nicotine dependence, unspecified, uncomplicated; Z79.84 Long term (current) use of oral hypoglycemic drugs; Z79.899 Other long term (current) drug therapy; Z88.1 Allergy status to other antibiotic agents; Z91.030 Bee allergy status; Z91.048 Other nonmedicinal substance allergy status
CPT/HCPCS: 36415; 70450; 72125; 80053; 81003; 81025; 84484; 85025; 93005; 99284

== ENCOUNTER 2019-08-23 18:11 | Emergency (ER) | payer OTHER ==
[2019-08-23 18:23] VITALS: RESP 18
[2019-08-23] MEDS ORDERED: FAMOTIDINE 20 MG/2 ML VIAL IV STA (18:27)
[2019-08-23] MEDS ORDERED: methylPREDNISolone SOD SUCCI 125 MG/2 ML VIAL IV STA (18:27)
[2019-08-23] MEDS ORDERED: HYDROmorphone 0.5 MG/0.5 ML SYRINGE IVP STA (18:27)
[2019-08-23] MEDS ORDERED: diphenhydrAMINE 50 MG/ML 1 ML VIAL IVP STA (18:28)
--- NOTE | 2019-08-23 18:28 | ED ---
Allergic Reaction HPI - General Chief complaint: Allergic Reaction Stated complaint: Vomiting,Facial Swelling Time Seen by Provider: 08/23/19 18:22 Source: patient Mode of arrival: ambulatory Limitations: no limitations - History of Present Illness Initial Comments: 43-year-old female presenting for right-sided facial swelling and tingling. Patient states that she has swelling and tingling over the right side of her face. She states that her right upper lip is slightly swollen. She states she has sinus pressure and has had been blowing what appears to be green sputum out of her noticed that sometimes has blood. Patient reaches a slight headache she denies any neck pain or stiffness. Patient denies recording a fever. Patient states she has had some chills, denies cough. States she felt nauseated and vomiting in her mouth. Denies diarrhea, abdominal pain, visual changes, weakness of the UE or LE. Patient states she did not feel well enough to go to work tonight and came to the ER for evaluation. Patient denies use of jaida inhibitors, or new medications. patient denies rashes, sensation of throat tickling/closing, difficulty breathing/swallowing or wheezing. Upon arrival patient appears well in no distress. - Related Data Home Medications Medication Instructions Recorded Confirmed Albuterol Inhaler (Mhu) [Ventolin 2 puff INHALATION RT-QID PRN 07/04/19 07/04/19 Hfa Inhaler (Mhu)] Lacosamide [Vimpat] 100 mg PO BID 07/04/19 07/04/19 Methocarbamol [Robaxin-750] 750 mg PO TID PRN 07/04/19 07/04/19 Naproxen 500 mg PO TID PRN 07/04/19 07/04/19 Pregabalin [Lyrica] 150 mg PO TID 07/04/19 07/04/19 Sertraline [Zoloft] 100 mg PO DAILY 07/04/19 07/04/19 metFORMIN HCL 1,000 mg PO BID 07/04/19 07/04/19 oxyCODONE-APAP 7.5-325MG [Percocet 1 tab PO TID PRN 07/04/19 07/04/19 7.5-325 mg] Previous Rx's Medication Instructions Recorded Insulin Aspart [NovoLOG Flexpen] 6 units SQ AC-TID #3 pen 07/06/19 Insulin Detemir [Levemir Flextouch] 20 units SQ HS #3 pen 07/06/19 Metoclopramide [Reglan] 5 mg PO AC-TID #90 tab 07/06/19 Amoxic-Pot Clav 875-125Mg 1 tab PO Q12HR 10 Days #20 tab 08/23/19 [Augmentin 875-125] Allergies Allergy/AdvReac Type Severity Reaction Status Date / Time clarithromycin [From Biaxin] Allergy Unknown Verified 08/23/19 18:23 BBE STINGS Allergy Unknown Uncoded 08/23/19 18:23 MACULIDE Allergy Unknown Uncoded 08/23/19 18:23 Review of Systems ROS Statement: Those systems with pertinent positive or pertinent negative responses have been documented in the HPI. ROS Other: All systems not noted in ROS Statement are negative. Past Medical History Past Medical History: Diabetes Mellitus, Pneumonia Additional Past Medical History / Comment(s): BRONCHITIS, KIDNEY STONES,UTI, ANXIETY ,BIPOLAR DEPRESSION chronic back pain History of Any Multi-Drug Resistant Organisms: None Reported Past Surgical History: Cholecystectomy Additional Past Surgical History / Comment(s): PAST MED HX LISTED CERCLAGE PROCEDURE X2 Past Anesthesia/Blood Transfusion Reactions: Postoperative Nausea & Vomiting (PONV) Past Psychological History: Anxiety, Bipolar, Depression Smoking Status: Current every day smoker Past Alcohol Use History: None Reported Past Drug Use History: None Reported - Past Family History Mother Family Medical History: Congestive Heart Failure (CHF), Diabetes Mellitus, Hyperlipidemia, Hypertension Additional Family Medical History / Comment(s): Mother at age 79 from diabetes, occasions. KIDNEY FAILURE Father Family Medical History: Diabetes Mellitus Additional Family Medical History / Comment(s): Father at 89 from old age with history of diabetes. COLLAPSED LUNG Brother(s) Additional Family Medical History / Comment(s): Patient has a total of 5 brother s. One has passed with history of diabetes. A second brother does have diabetes and alive. Patient has 6 sisters and she does not know any other medical history. Patient has 3 children: 2 daughters and 1 son with no major medical problems. General Exam - General Exam Comments Initial Comments: General: The patient is awake and alert, in no distress, and does not appear acutely ill. Eye: +3 mm pupils are equal, round and reactive to light, extra-ocular movements are intact. No nystagmus. There is normal conjunctiva bilaterally. No signs of icterus. Ears, nose, mouth and throat: There are moist mucous membranes and no oral lesions. Patient is tender to palpation of the ethmoid and maxillary sinuses. Patient is very mild right-sided facial swelling in comparison with the left sensation of the face bilaterally. There is no facial droop. Patient is very mild swelling of the right upper lip. There is no noted oral lesions. No trismus no drooling airway intact. Smiles without difficulty. No tenderness of mastoids. Neck: The neck is supple, there is no tenderness or JVD. Cardiovascular: There is a regular rate and rhythm. No murmur, rub or gallop is appreciated. Respiratory: Lungs are clear to auscultation, respirations are non-labored, breath sounds are equal. No wheezes, stridor, rales, or rhonchi. Musculoskeletal: Normal ROM, no tenderness. Strength 5/5. Sensation intact. Radial pulses equal bilaterally 2+. Neurological: A&O x 3. CN II-XII intact, There are no obvious motor or sensory deficits. Coordination appears grossly intact. Speech is normal. Skin: Skin is warm and dry and no rashes or lesions are noted. Psychiatric: Cooperative, appropriate mood & affect, normal judgment. Limitations: no limitations Course Vital Signs 08/23/19 08/23/19 18:20 20:45 Temperature 98.9 F 98.2 F Pulse Rate 99 79 Respiratory 18 18 Rate Blood Pressure 133/81 127/82 O2 Sat by Pulse 99 99 Oximetry Medical Decision Making - Medical Decision Making Pt presenting for swollen face, purulent nasal drainage. Denies new mediations, right side of face/lip swollen--ddx included allergic reaction however does not appear typical no other associated symptoms. Does not appear anaphylaxis. Patient CT obtained revealing sinusitis which is consistent with clinical picture. Patient has some mild facial swelling. Does not appear toxic. Patient labs stable mild leukocytosis. Patient evaluated by attending who is agreeable to care plan and discharge at this time. - Lab Data Result diagrams: 08/23/19 18:40 08/23/19 18:40 Lab Results 08/23/19 08/23/19 08/23/19 Range/Units 18:40 18:40 18:40 WBC 10.8 H (3.8-10.6) k/uL RBC 5.01 (3.80-5.40) m/uL Hgb 14.0 (11.4-16.0) gm/dL Hct 43.2 (34.0-46.0) % MCV 86.2 (80.0-100.0) fL MCH 27.9 (25.0-35.0) pg MCHC 32.3 (31.0-37.0) g/dL RDW 14.7 (11.5-15.5) % Plt Count 243 (150-450) k/uL Neutrophils % 73 % Lymphocytes % 15 % Monocytes % 5 % Eosinophils % 5 % Basophils % 1 % Neutrophils # 7.9 H (1.3-7.7) k/uL Lymphocytes # 1.6 (1.0-4.8) k/uL Monocytes # 0.6 (0-1.0) k/uL Eosinophils # 0.5 (0-0.7) k/uL Basophils # 0.1 (0-0.2) k/uL Sodium 136 L (137-145) mmol/L Potassium 4.0 (3.5-5.1) mmol/L Chloride 104 (98-107) mmol/L Carbon Dioxide 20 L (22-30) mmol/L Anion Gap 12 mmol/L BUN 12 (7-17) mg/dL Creatinine 0.45 L (0.52-1.04) mg/dL Est GFR (CKD-EPI)AfAm >90 (>60 ml/min/1.73 sqM) Est GFR (CKD-EPI)NonAf >90 (>60 ml/min/1.73 sqM) Glucose 132 H (74-99) mg/dL Plasma Lactic Acid Arnaldo 1.1 (0.7-2.0) mmol/L Calcium 9.1 (8.4-10.2) mg/dL Total Bilirubin 0.7 (0.2-1.3) mg/dL AST 22 (14-36) U/L ALT 14 (4-34) U/L Alkaline Phosphatase 82 (38-126) U/L Total Protein 7.6 (6.3-8.2) g/dL Albumin 4.4 (3.5-5.0) g/dL Urine Color Urine Appearance (Clear) Urine pH (5.0-8.0) Ur Specific [place] (1.001-1.035) Urine Protein (Negative) Urine Glucose (UA) (Negative) Urine Ketones (Negative) Urine Blood (Negative) Urine Nitrite (Negative) Urine Bilirubin (Negative) Urine Urobilinogen (<2.0) mg/dL Ur Leukocyte Esterase (Negative) 08/23/19 Range/Units 19:55 WBC (3.8-10.6) k/uL RBC (3.80-5.40) m/uL Hgb (11.4-16.0) gm/dL Hct (34.0-46.0) % MCV (80.0-100.0) fL MCH (25.0-35.0) pg MCHC (31.0-37.0) g/dL RDW (11.5-15.5) % Plt Count (150-450) k/uL Neutrophils % % Lymphocytes % % Monocytes % % Eosinophils % % Basophils % % Neutrophils # (1.3-7.7) k/uL Lymphocytes # (1.0-4.8) k/uL Monocytes # (0-1.0) k/uL Eosinophils # (0-0.7) k/uL Basophils # (0-0.2) k/uL Sodium (137-145) mmol/L Potassium (3.5-5.1) mmol/L Chloride (98-107) mmol/L Carbon Dioxide (22-30) mmol/L Anion Gap mmol/L BUN (7-17) mg/dL Creatinine (0.52-1.04) mg/dL Est GFR (CKD-EPI)AfAm (>60 ml/min/1.73 sqM) Est GFR (CKD-EPI)NonAf (>60 ml/min/1.73 sqM) Glucose (74-99) mg/dL Plasma Lactic Acid Arnaldo (0.7-2.0) mmol/L Calcium (8.4-10.2) mg/dL Total Bilirubin (0.2-1.3) mg/dL AST (14-36) U/L ALT (4-34) U/L Alkaline Phosphatase (38-126) U/L Total Protein (6.3-8.2) g/dL Albumin (3.5-5.0) g/dL Urine Color Light Yellow Urine Appearance Clear (Clear) Urine pH 6.0 (5.0-8.0) Ur Specific [place] 1.004 (1.001-1.035) Urine Protein Negative (Negative) Urine Glucose (UA) Negative (Negative) Urine Ketones 1+ H (Negative) Urine Blood Negative (Negative) Urine Nitrite Negative (Negative) Urine Bilirubin Negative (Negative) Urine Urobilinogen <2.0 (<2.0) mg/dL Ur Leukocyte Esterase Negative (Negative) Disposition Clinical Impression: Sinusitis, Facial swelling Disposition: HOME SELF-CARE Condition: Good Instructions (If sedation given, give patient instructions): Sinusitis (ED) Additional Instructions: Please use medication as discussed. Please follow-up with family doctor in the next 2 days.. Please return to emergency room if the symptoms increase or worsen or for any other concerns. Prescriptions: Amoxic-Pot Clav 875-125Mg [Augmentin 875-125] 1 tab PO Q12HR 10 Days #20 tab Is patient prescribed a controlled substance at d/c from ED?: No Referrals: Mateus Curtis DO [Primary Care Provider] - 1-2 days Time of Disposition: 20:17
[2019-08-23] MEDS ORDERED: SODIUM CHLORIDE 0.9% 500 ML 500 ML IV ONE (18:31)
[2019-08-23] MEDS ORDERED: SODIUM CHLORIDE 0.9% 1,000 ML IV ONE (18:31)
[2019-08-23] MEDS ORDERED: SODIUM CHLORIDE 0.9% 1,000 ML IV SCH (18:45)
[2019-08-23 19:02] LABS: Basophils # (A) 0.1 k/uL (0-0.2); Basophils % (A) 1 %; Eosinophils # (A) 0.5 k/uL (0-0.7); Eosinophils % (A) 5 %; HCT 43.2 % (34.0-46.0); Lymphocytes # (A) 1.6 k/uL (1.0-4.8); Lymphocytes % (A) 15 %; MCH 27.9 pg (25.0-35.0); MCHC 32.3 g/dL (31.0-37.0); MCV 86.2 fL (80.0-100.0); Mean Platelet Volume 8.2; Monocytes # (A) 0.6 k/uL (0-1.0); Monocytes % (A) 5 %; Neutrophils # (A) 7.9 k/uL (1.3-7.7); Neutrophils % (A) 73 %; Platelet Count 243 k/uL (150-450); RBC 5.01 m/uL (3.80-5.40); RDW 14.7 % (11.5-15.5); WBC 10.8 k/uL (3.8-10.6)
[2019-08-23] MEDS ORDERED: ONDANSETRON 4 MG/2 ML VIAL IVP STA (19:05)
[2019-08-23 19:10] LABS: ALT 14 U/L (4-34); AST 22 U/L (14-36); African American GFR (CKD) >90 (>60 ml/min/1.73 sqM); Albumin 4.4 g/dL (3.5-5.0); Alkaline Phosphatase 82 U/L (38-126); Anion Gap 12 mmol/L; Blood Urea Nitrogen 12 mg/dL (7-17); Calcium 9.1 mg/dL (8.4-10.2); Carbon Dioxide 20 mmol/L (22-30); Chloride 104 mmol/L (98-107); Glucose 132 mg/dL (74-99); Non-African American GFR(CKD) >90 (>60 ml/min/1.73 sqM); Sodium 136 mmol/L (137-145); Total Bilirubin 0.7 mg/dL (0.2-1.3); Total Protein 7.6 g/dL (6.3-8.2)
--- NOTE | 2019-08-23 19:52 | CT ---
EXAMINATION TYPE: CT brain wo con DATE OF EXAM: 08/23/2019 COMPARISON: CT brain August 11, 2019 HISTORY: Headache, vomiting, facial swelling. CT DLP: 1111.4 mGycm. Automated Exposure Control for Dose Reduction was Utilized. TECHNIQUE: CT scan of the head is performed without contrast. FINDINGS: There is no acute intracranial hemorrhage, mass effect, or midline shift identified. The ventricles and sulci are within normal limits in size. Witt-white matter differentiation is maintain ed. Persistent mild mucosal thickening left maxillary sinus with new air-fluid level. Persistent mild to moderate mucosal thickening with new fluid in the bilateral ethmoid sinuses. Globes are intact bi laterally. IMPRESSION: New acute bilateral ethmoid and left maxillary sinusitis on background mild chronic sinus disease.
[2019-08-23 20:09] LABS: Appearance,Urine Clear (Clear); Bilirubin,Urine Negative (Negative); Blood,Urine Negative (Negative); Color,Urine Light Yellow; Glucose,Urine (UA) Negative (Negative); Ketones,Urine 1+ (Negative); Leukocyte Esterase,Urine Negative (Negative); Nitrite,Urine Negative (Negative); Protein,Urine Negative (Negative); Specific Gravity,Urine 1.004 (1.001-1.035); Urobilinogen,Urine <2.0 mg/dL (<2.0)
[2019-08-23] MEDS ORDERED: AMOXIC-POT CLAV 875MG STARTER PACK 2 TAB BTL PO STA (20:19)
[2019-08-23 20:53] VITALS: BP 127/82; PULSE 79; TEMP 98.2
== END 2019-08-23 20:45 | disposition home or self-care (01) ==
LOC: EC 18:11
DX: J32.9 Chronic sinusitis, unspecified (principal); R22.0 Localized swelling, mass and lump, head; D72.829 Elevated white blood cell count, unspecified; T78.40XA Allergy, unspecified, initial encounter; E11.9 Type 2 diabetes mellitus without complications; F41.9 Anxiety disorder, unspecified; F31.9 Bipolar disorder, unspecified; G89.29 Other chronic pain; M54.9 Dorsalgia, unspecified; Z79.84 Long term (current) use of oral hypoglycemic drugs; Z79.899 Other long term (current) drug therapy; Z88.1 Allergy status to other antibiotic agents; Z91.030 Bee allergy status; Z90.49 Acquired absence of other specified parts of digestive tract
CPT/HCPCS: 36415; 80053; 83605; 85025; 81003; 87040; 70450; 96374; 96375 ×4; 96361; 99285; J1200; J2930; J2405; J1170

== ENCOUNTER 2019-11-28 10:05 | Emergency (ER) | payer OTHER ==
[2019-11-28 10:14] VITALS: RESP 18
[2019-11-28] MEDS ORDERED: ONDANSETRON 4 MG/2 ML VIAL IVP STA (10:30)
[2019-11-28] MEDS ORDERED: SODIUM CHLORIDE 0.9% 1,000 ML IV STA ×2 (10:30→11:42)
--- NOTE | 2019-11-28 10:36 | ED ---
Nausea/Vomiting/Diarrhea HPI - General Chief complaint: Nausea/Vomiting/Diarrhea Stated complaint: Vomiting and Diarrhea Time Seen by Provider: 11/28/19 10:16 Source: patient, family Mode of arrival: ambulatory Limitations: no limitations - History of Present Illness Initial comments: patient is a 43-year-old female, history diabetes, DKA, presenting to the emergency Department with complaints of nausea and vomiting 2 days. Patient is also been having diarrhea for the last 4 days. She states that she feels like it is starting to slow down. Patient states she is having generalized abdominal discomfort, cramping mostly in her upper abdomen as well. She states her doctor recently switched her metformin from the extended release back to the regular one and she feels like this might be the cause of her diarrhea. She states she is supposed to take 1000 mg twice a day but has only been taking it once at night secondary to the discomfort she is having. She has not been able to eat or drink much the last few days. She states she is trying to track her sugars but the last week and has been elevated. She did not check her sugar today. She does have history cholecystectomy, no other abdominal surgeries. She denies any urinary complaints. She denies any chest pain or shortness of breath, recent fevers or chills. She denies any recent antibiotics. She has no further complaints at this time. Upon arrival to the ER, her vital signs are stable. - Related Data Home Medications Medication Instructions Recorded Confirmed Albuterol Inhaler (Mhu) [Ventolin 2 puff INHALATION RT-QID PRN 07/04/19 07/04/19 Hfa Inhaler (Mhu)] Lacosamide [Vimpat] 100 mg PO BID 07/04/19 07/04/19 Methocarbamol [Robaxin-750] 750 mg PO TID PRN 07/04/19 07/04/19 Naproxen 500 mg PO TID PRN 07/04/19 07/04/19 Pregabalin [Lyrica] 150 mg PO TID 07/04/19 07/04/19 Sertraline [Zoloft] 100 mg PO DAILY 07/04/19 07/04/19 metFORMIN HCL 1,000 mg PO BID 07/04/19 07/04/19 oxyCODONE-APAP 7.5-325MG [Percocet 1 tab PO TID PRN 07/04/19 07/04/19 7.5-325 mg] Previous Rx's Medication Instructions Recorded Insulin Aspart [NovoLOG Flexpen] 6 units SQ AC-TID #3 pen 07/06/19 Insulin Detemir [Levemir Flextouch] 20 units SQ HS #3 pen 07/06/19 Metoclopramide [Reglan] 5 mg PO AC-TID #90 tab 07/06/19 Amoxic-Pot Clav 875-125Mg 1 tab PO Q12HR 10 Days #20 tab 08/23/19 [Augmentin 875-125] Allergies Allergy/AdvReac Type Severity Reaction Status Date / Time clarithromycin [From Biaxin] Allergy Unknown Verified 11/28/19 10:14 BBE STINGS Allergy Unknown Uncoded 11/28/19 10:14 MACULIDE Allergy Unknown Uncoded 11/28/19 10:14 Review of Systems ROS Statement: Those systems with pertinent positive or pertinent negative responses have been documented in the HPI. ROS Other: All systems not noted in ROS Statement are negative. Past Medical History Past Medical History: Diabetes Mellitus, Pneumonia Additional Past Medical History / Comment(s): BRONCHITIS, KIDNEY STONES,UTI, ANXIETY ,BIPOLAR DEPRESSION chronic back pain History of Any Multi-Drug Resistant Organisms: None Reported Past Surgical History: Cholecystectomy Additional Past Surgical History / Comment(s): PAST MED HX LISTED CERCLAGE PROCEDURE X2 Past Anesthesia/Blood Transfusion Reactions: Postoperative Nausea & Vomiting (PONV) Past Psychological History: Anxiety, Bipolar, Depression Smoking Status: Current every day smoker Past Alcohol Use History: None Reported Past Drug Use History: None Reported - Past Family History Mother Family Medical History: Congestive Heart Failure (CHF), Diabetes Mellitus, Hyperlipidemia, Hypertension Additional Family Medical History / Comment(s): Mother at age 79 from diabetes, occasions. KIDNEY FAILURE Father Family Medical History: Diabetes Mellitus Additional Family Medical History / Comment(s): Father at 89 from old age with history of diabetes. COLLAPSED LUNG Brother(s) Additional Family Medical History / Comment(s): Patient has a total of 5 brothers. One has passed with history of diabetes. A second brother does have diabetes and alive. Patient has 6 sisters and she does not know any other medical history. Patient has 3 children: 2 daughters and 1 son with no major medical problems. General Exam - General Exam Comments Initial Comments: GENERAL: Patient is well-developed and well-nourished. Patient is nontoxic and in no acute distress. HEAD: Atraumatic, normocephalic. EYES: Pupils equal round and reactive to light, extraocular movements intact, sclera anicteric, conjunctiva are normal. Eyelids were unremarkable. ENT: TMs normal, nares patent, oropharynx clear without exudates. Moist mucous membranes. NECK: Normal range of motion, supple without lymphadenopathy or JVD. LUNGS: Unlabored respirations. Breath sounds clear to auscultation bilaterally and equal. No wheezes rales or rhonchi. HEART: Regular rate and rhythm without murmurs, rubs or gallops. ABDOMEN: generalized discomfort in the upper abdomen,no specific area of pain. Soft,, normoactive bowel sounds. No guarding, no rebound. No masses appreciated. : Deferred MUSCULOSKELETAL: Normal extremities with adequate strength and normal range of motion, no pitting or edema. No clubbing or cyanosis. NEUROLOGICAL: Patient is alert and oriented x 3. Motor and sensory are also intact. Cranial nerves II through XII grossly intact. Symmetrical smile. Normal speech, normal gait. PSYCH: Normal mood, normal affect. SKIN: Warm, Dry, normal turgor, no rashes or lesions noted. Limitations: no limitations Course Vital Signs 11/28/19 11/28/19 10:09 13:22 Temperature 97.7 F 98.5 F Pulse Rate 98 65 Respiratory 18 18 Rate Blood Pressure 143/83 127/89 O2 Sat by Pulse 98 99 Oximetry Medical Decision Making - Medical Decision Making patient is a 43-year-old female, history diabetes, DKA, presenting for nausea and vomiting 2 days as well as diarrhea 4 days. She was recently switched to different type of metformin and believes this is the reason for the diarrhea. She is generalized abdominal discomfort on palpation, no specific area pain. Her vital signs are stable upon arrival. Lab work shows a normal white count, glucose was 233, lactic acid was 3.4, urine showed a large amount of blood, secondary to patient being on her period, rare bacteria. Urine culture is pending. Acetone was negative. Patient was given 2 L of fluids as well as a GI cocktail. She states she reports improvement in her symptoms. She does have a follow-up with her PCP on Wednesday, in 2 days. Patient has been unable to leave us a stool sample the ER. I discussed with patient that her symptoms could be related to the change in her metformin. She is stable for discharge. She is in agreement with this plan of care. Return parameters were discussed with the patient she verbalized understanding. She will follow with her PCP. Case discussed with Dr. Ignacio. - Lab Data Result diagrams: 11/28/19 10:46 11/28/19 10:46 Lab Results 11/28/19 11/28/19 11/28/19 Range/Units 10:46 10:46 10:46 WBC 8.9 (3.8-10.6) k/uL RBC 5.40 (3.80-5.40) m/uL Hgb 15.0 (11.4-16.0) gm/dL Hct 45.8 (34.0-46.0) % MCV 84.7 (80.0-100.0) fL MCH 27.7 (25.0-35.0) pg MCHC 32.7 (31.0-37.0) g/dL RDW 13.7 (11.5-15.5) % Plt Count 245 (150-450) k/uL Neutrophils % 59 % Lymphocytes % 28 % Monocytes % 5 % Eosinophils % 5 % Basophils % 1 % Neutrophils # 5.2 (1.3-7.7) k/uL Lymphocytes # 2.5 (1.0-4.8) k/uL Monocytes # 0.5 (0-1.0) k/uL Eosinophils # 0.5 (0-0.7) k/uL Basophils # 0.1 (0-0.2) k/uL Sodium 137 (137-145) mmol/L Potassium 4.6 (3.5-5.1) mmol/L Chloride 106 (98-107) mmol/L Carbon Dioxide 21 L (22-30) mmol/L Anion Gap 10 mmol/L BUN 19 H (7-17) mg/dL Creatinine 0.51 L (0.52-1.04) mg/dL Est GFR (CKD-EPI)AfAm >90 (>60 ml/min/1.73 sqM) Est GFR (CKD-EPI)NonAf >90 (>60 ml/min/1.73 sqM) Glucose 233 H (74-99) mg/dL POC Glucose (mg/dL) (75-99) mg/dL POC Glu Customer Service Advocate ID Lactic Ac Sepsis Rflx Plasma Lactic Acid Arnaldo (0.7-2.0) mmol/L Calcium 9.3 (8.4-10.2) mg/dL Magnesium 1.3 L (1.6-2.3) mg/dL Total Bilirubin 0.6 (0.2-1.3) mg/dL AST 23 (14-36) U/L ALT 16 (4-34) U/L Alkaline Phosphatase 104 (38-126) U/L Total Protein 7.0 (6.3-8.2) g/dL Albumin 4.2 (3.5-5.0) g/dL Amylase 47 (30-110) U/L Lipase 91 (23-300) U/L Urine Color Yellow Urine Appearance Clear (Clear) Urine pH 5.5 (5.0-8.0) Ur Specific [place] 1.016 (1.001-1.035) Urine Protein Negative (Negative) Urine Glucose (UA) Negative (Negative) Urine Ketones Negative (Negative) Urine Blood Large H (Negative) Urine Nitrite Negative (Negative) Urine Bilirubin Negative (Negative) Urine Urobilinogen <2.0 (<2.0) mg/dL Ur Leukocyte Esterase Moderate H (Negative) Urine RBC >182 H (0-5) /hpf Urine WBC 10 H (0-5) /hpf Ur Squamous Epith Cells 4 (0-4) /hpf Urine Bacteria Rare H (None) /hpf Urine Mucus Rare H (None) /hpf Acetone, Qual Negative (Negative) 11/28/19 11/28/19 11/28/19 Range/Units 10:46 10:57 11:29 WBC (3.8-10.6) k/uL RBC (3.80-5.40) m/uL Hgb (11.4-16.0) gm/dL Hct (34.0-46.0) % MCV (80.0-100.0) fL MCH (25.0-35.0) pg MCHC (31.0-37.0) g/dL RDW (11.5-15.5) % Plt Count (150-450) k/uL Neutrophils % % Lymphocytes % % Monocytes % % Eosinophils % % Basophils % % Neutrophils # (1.3-7.7) k/uL Lymphocytes # (1.0-4.8) k/uL Monocytes # (0-1.0) k/uL Eosinophils # (0-0.7) k/uL Basophils # (0-0.2) k/uL Sodium (137-145) mmol/L Potassium (3.5-5.1) mmol/L Chloride (98-107) mmol/L Carbon Dioxide (22-30) mmol/L Anion Gap mmol/L BUN (7-17) mg/dL Creatinine (0.52-1.04) mg/dL Est GFR (CKD-EPI)AfAm (>60 ml/min/1.73 sqM) Est GFR (CKD-EPI)NonAf (>60 ml/min/1.73 sqM) Glucose (74-99) mg/dL POC Glucose (mg/dL) 223 H (75-99) mg/dL POC Glu Customer Service Advocate ID Gregorio Shell Lactic Ac Sepsis Rflx Y Plasma Lactic Acid Arnaldo 3.4 H* (0.7-2.0) mmol/L Calcium (8.4-10.2) mg/dL Magnesium (1.6-2.3) mg/dL Total Bilirubin (0.2-1.3) mg/dL AST (14-36) U/L ALT (4-34) U/L Alkaline Phosphatase (38-126) U/L Total Protein (6.3-8.2) g/dL Albumin (3.5-5.0) g/dL Amylase (30-110) U/L Lipase (23-300) U/L Urine Color Urine Appearance (Clear) Urine pH (5.0-8.0) Ur Specific [place] (1.001-1.035) Urine Protein (Negative) Urine Glucose (UA) (Negative) Urine Ketones (Negative) Urine Blood (Negative) Urine Nitrite (Negative) Urine Bilirubin (Negative) Urine Urobilinogen (<2.0) mg/dL Ur Leukocyte Esterase (Negative) Urine RBC (0-5) /hpf Urine WBC (0-5) /hpf Ur Squamous Epith Cells (0-4) /hpf Urine Bacteria (None) /hpf Urine Mucus (None) /hpf Acetone, Qual (Negative) Disposition Clinical Impression: Dehydration, Nausea vomiting and diarrhea Disposition: HOME SELF-CARE Condition: Stable Instructions (If sedation given, give patient instructions): Acute Nausea and Vomiting (ED) Additional Instructions: Please return to the Emergency Department if symptoms worsen or any other concerns. Follow up with PCP as discussed. May use Zofran for additional nausea. Is patient prescribed a controlled substance at d/c from ED?: No Referrals: Mateus Curtis DO [Primary Care Provider] - 1-2 days
[2019-11-28 10:59] LABS: Glucose,Whole Blood 223 mg/dL (75-99)
[2019-11-28 11:04] LABS: Basophils # (A) 0.1 k/uL (0-0.2); Basophils % (A) 1 %; Eosinophils # (A) 0.5 k/uL (0-0.7); Eosinophils % (A) 5 %; HCT 45.8 % (34.0-46.0); Lymphocytes # (A) 2.5 k/uL (1.0-4.8); Lymphocytes % (A) 28 %; MCH 27.7 pg (25.0-35.0); MCHC 32.7 g/dL (31.0-37.0); MCV 84.7 fL (80.0-100.0); Mean Platelet Volume 8.6; Monocytes # (A) 0.5 k/uL (0-1.0); Monocytes % (A) 5 %; Neutrophils # (A) 5.2 k/uL (1.3-7.7); Neutrophils % (A) 59 %; Platelet Count 245 k/uL (150-450); RDW 13.7 % (11.5-15.5); WBC 8.9 k/uL (3.8-10.6)
[2019-11-28 11:14] LABS: ALT 16 U/L (4-34); AST 23 U/L (14-36); African American GFR (CKD) >90 (>60 ml/min/1.73 sqM); Albumin 4.2 g/dL (3.5-5.0); Alkaline Phosphatase 104 U/L (38-126); Amylase 47 U/L (30-110); Anion Gap 10 mmol/L; Blood Urea Nitrogen 19 mg/dL (7-17); Calcium 9.3 mg/dL (8.4-10.2); Carbon Dioxide 21 mmol/L (22-30); Chloride 106 mmol/L (98-107); Glucose 233 mg/dL (74-99); Magnesium 1.3 mg/dL (1.6-2.3); Non-African American GFR(CKD) >90 (>60 ml/min/1.73 sqM); Potassium 4.6 mmol/L (3.5-5.1); Sodium 137 mmol/L (137-145); Total Bilirubin 0.6 mg/dL (0.2-1.3)
[2019-11-28 11:25] LABS: Appearance,Urine Clear (Clear); Bacteria,Urine Rare /hpf; Bilirubin,Urine Negative (Negative); Blood,Urine Large (Negative); Color,Urine Yellow; Glucose,Urine (UA) Negative (Negative); Ketones,Urine Negative (Negative); Leukocyte Esterase,Urine Moderate (Negative); Mucus,Urine Rare /hpf; Nitrite,Urine Negative (Negative); PH, Urine 5.5 (5.0-8.0); Protein,Urine Negative (Negative); RBC,Urine >182 /hpf (0-5); Specific Gravity,Urine 1.016 (1.001-1.035); Squamous Epithelial Cell,Urine 4 /hpf (0-4); Urobilinogen,Urine <2.0 mg/dL (<2.0); WBC,Urine 10 /hpf (0-5)
[2019-11-28] MEDS ORDERED: MAG HYDROX/AL HYDROX/SIMETH 30 ML, HYOSCYAMINE ELIXIR 10 ML, LIDOCAINE VISCOUS 2% 10 ML PO STA ×3 (12:28)
[2019-11-28] MEDS ORDERED: ONDANSETRON 4 MG ODT STARTER PACK 2 TAB BTL PO STA (12:56)
[2019-11-28 13:24] VITALS: BP 127/89; PULSE 65; TEMP 98.5
== END 2019-11-28 13:24 | disposition home or self-care (01) ==
LOC: EC 10:05
DX: E86.0 Dehydration (principal); R11.2 Nausea with vomiting, unspecified; R19.7 Diarrhea, unspecified; E11.10 Type 2 diabetes mellitus with ketoacidosis without coma; F41.9 Anxiety disorder, unspecified; F31.9 Bipolar disorder, unspecified; F17.200 Nicotine dependence, unspecified, uncomplicated; Z79.84 Long term (current) use of oral hypoglycemic drugs; Z79.899 Other long term (current) drug therapy; Z88.1 Allergy status to other antibiotic agents; Z91.048 Other nonmedicinal substance allergy status; Z91.030 Bee allergy status
CPT/HCPCS: 36415; 80053; 82150; 82009; 83605; 83690; 83735; 85025; 81001; 99284; 96374; 96361 ×2; J2405; S0119

== ENCOUNTER 2019-12-07 15:36 | Emergency (ER) | payer OTHER ==
[2019-12-07 16:00] VITALS: TEMP 98
[2019-12-07] MEDS ORDERED: SODIUM CHLORIDE 0.9% 1,000 ML IV STA (16:16)
[2019-12-07] MEDS ORDERED: MORPHINE SULFATE 4 MG/ML SYRINGE IV STA (16:16)
--- NOTE | 2019-12-07 16:18 | ED ---
General Adult HPI - General Chief complaint: Abdominal Pain Stated complaint: Kidney Infection - Sent by PCP Time Seen by Provider: 12/07/19 15:59 Source: patient Limitations: no limitations - History of Present Illness Initial comments: Dictation was produced using [employer] dictation software. please excuse any grammatical, word or spelling errors. This patient was cared for during a federal and state declared state of emergency secondary to Covid 19 Chief Complaint: 43-year-old female with past medical history of diabetes, pneumonia, nephrolithiasis presents with 2 week of right flank pain. History of Present Illness: Patient is a 43-year-old female she reports that she sent here for medical evaluation by primary care physician. Patient reports that she's been having right-sided flank pain for approximately 2 weeks. Patient states she has history of kidney stones. Patient denies any urinary symptoms. She does have some nausea but no vomiting. Patient states the pain is severe and sharp with a colicky nature. The ROS documented in this emergency department record has been reviewed and confirmed by me. Those systems with pertinent positive or negative responses have been documented in the HPI. All other systems are other negative and/or noncontributory. PHYSICAL EXAM: General Impression: Alert and oriented x3, acute distress secondary to pain HEENT: Normocephalic atraumatic, extra-ocular movements intact, pupils equal and reactive to light bilaterally, mucous membranes moist. Cardiovascular: Heart regular rate and rhythm Chest: Able to complete full sentences, no retractions, no tachypnea Abdomen: abdomen soft, non-tender, non-distended, no organomegaly Musculoskeletal: Pulses present and equal in all extremities, no peripheral edema, mild CVA tenderness with CVA thump Motor: no focal deficits noted Neurological: CN II-XII grossly intact, no focal motor or sensory deficits noted Skin: Intact with no visualized rashes Psych: Normal affect and mood ED course: 43-year-old female presents with right flank pain. Vital signs upon arrival are within acceptable limits. Computed tomography scan of the abdomen and pelvis was obtained showing nonobstructing left renal calculi. No evidence of renal obstruction. Laborato ry evaluation was obtained. CBC, metabolic panel is unremarkable. Urinalysis is positive for 9 white blood cells. Patient reports that she really had completed course of antibiotics by primary care physician. She does not have any overwhelming urinary symptoms. Patient reevaluated bedside states that her pain is worse with movement. Patient is likely secondary to flank strain. Patient will be discharged. She is reevaluated bedside stable medical condition. She reports significant improvement of her pain symptoms after given IV analgesia. Patient to the follow-up with her primary care physician. - Related Data Home Medications Medication Instructions Recorded Confirmed Albuterol Inhaler (Mhu) [Ventolin 2 puff INHALATION RT-QID PRN 07/04/19 07/04/19 Hfa Inhaler (Mhu)] Lacosamide [Vimpat] 100 mg PO BID 07/04/19 07/04/19 Methocarbamol [Robaxin-750] 750 mg PO TID PRN 07/04/19 07/04/19 Naproxen 500 mg PO TID PRN 07/04/19 07/04/19 Pregabalin [Lyrica] 150 mg PO TID 07/04/19 07/04/19 Sertraline [Zoloft] 100 mg PO DAILY 07/04/19 07/04/19 metFORMIN HCL 1,000 mg PO BID 07/04/19 07/04/19 oxyCODONE-APAP 7.5-325MG [Percocet 1 tab PO TID PRN 07/04/19 07/04/19 7.5-325 mg] Previous Rx's Medication Instructions Recorded Insulin Aspart [NovoLOG Flexpen] 6 units SQ AC-TID #3 pen 07/06/19 Insulin Detemir [Levemir Flextouch] 20 units SQ HS #3 pen 07/06/19 Metoclopramide [Reglan] 5 mg PO AC-TID #90 tab 07/06/19 Amoxic-Pot Clav 875-125Mg 1 tab PO Q12HR 10 Days #20 tab 08/23/19 [Augmentin 875-125] Allergies Allergy/AdvReac Type Severity Reaction Status Date / Time clarithromycin [From Biaxin] Allergy Unknown Verified 11/28/19 10:14 BBE STINGS Allergy Unknown Uncoded 11/28/19 10:14 MACULIDE Allergy Unknown Uncoded 11/28/19 10:14 Review of Systems ROS Statement: Those systems with pertinent positive or pertinent negative responses have been documented in the HPI. ROS Other: All systems not noted in ROS Statement are negative. Past Medical History Past Medical History: Diabetes Mellitus, Pneumonia Additional Past Medical History / Comment(s): BRONCHITIS, KIDNEY STONES,UTI, ANXIETY ,BIPOLAR DEPRESSION chronic back pain History of Any Multi-Drug Resistant Organisms: None Reported Past Surgical History: Cholecystectomy Additional Past Surgical History / Comment(s): PAST MED HX LISTED CERCLAGE PROCEDURE X2 Past Anesthesia/Blood Transfusion Reactions: Postoperative Nausea & Vomiting (PONV) Past Psychological History: Anxiety, Bipolar, Depression Smoking Status: Current every day smoker Past Alcohol Use History: None Reported Past Drug Use History: None Reported - Past Family History Mother Family Medical History: Congestive Heart Failure (CHF), Diabetes Mellitus, Hyperlipidemia, Hypertension Additional Family Medical History / Comment(s): Mother at age 79 from diabetes, occasions. KIDNEY FAILURE Father Family Medical History: Diabetes Mellitus Additional Family Medical History / Comment(s): Father at 89 from old age with history of diabetes. COLLAPSED LUNG Brother(s) Additional Family Medical History / Comment(s): Patient has a total of 5 brothers. One has passed with history of diabetes. A second brother does have diabetes and alive. Patient has 6 sisters and she does not know any other m edical history. Patient has 3 children: 2 daughters and 1 son with no major medical problems. General Exam Limitations: no limitations Course Vital Signs 12/07/19 15:57 Temperature 98 F Pulse Rate 90 Respiratory 16 Rate Blood Pressure 131/75 O2 Sat by Pulse 98 Oximetry Medical Decision Making - Lab Data Result diagrams: 12/07/19 16:18 12/07/19 16:18 Lab Results 12/07/19 12/07/19 12/07/19 Range/Units 16:18 16:18 16:18 WBC 10.6 (3.8-10.6) k/uL RBC 5.59 H (3.80-5.40) m/uL Hgb 15.7 (11.4-16.0) gm/dL Hct 47.5 H (34.0-46.0) % MCV 84.9 (80.0-100.0) fL MCH 28.2 (25.0-35.0) pg MCHC 33.2 (31.0-37.0) g/dL RDW 13.6 (11.5-15.5) % Plt Count 229 (150-450) k/uL Neutrophils % 65 % Lymphocytes % 25 % Monocytes % 5 % Eosinophils % 3 % Basophils % 1 % Neutrophils # 6.8 (1.3-7.7) k/uL Lymphocytes # 2.7 (1.0-4.8) k/uL Monocytes # 0.6 (0-1.0) k/uL Eosinophils # 0.3 (0-0.7) k/uL Basophils # 0.1 (0-0.2) k/uL Sodium 137 (137-145) mmol/L Potassium 4.4 (3.5-5.1) mmol/L Chloride 107 (98-107) mmol/L Carbon Dioxide 22 (22-30) mmol/L Anion Gap 8 mmol/L BUN 13 (7-17) mg/dL Creatinine 0.49 L (0.52-1.04) mg/dL Est GFR (CKD-EPI)AfAm >90 (>60 ml/min/1.73 sqM) Est GFR (CKD-EPI)NonAf >90 (>60 ml/min/1.73 sqM) Glucose 161 H (74-99) mg/dL Calcium 9.7 (8.4-10.2) mg/dL Urine Color Colorless Urine Appearance Clear (Clear) Urine pH 7.0 (5.0-8.0) Ur Specific [place] 1.003 (1.001-1.035) Urine Protein Negative (Negative) Urine Glucose (UA) Negative (Negative) Urine Ketones Negative (Negative) Urine Blood Negative (Negative) Urine Nitrite Negative (Negative) Urine Bilirubin Negative (Negative) Urine Urobilinogen <2.0 (<2.0) mg/dL Ur Leukocyte Esterase Moderate H (Negative) Urine RBC 1 (0-5) /hpf Urine WBC 9 H (0-5) /hpf Ur Squamous Epith Cells 3 (0-4) /hpf Urine Mucus Rare H (None) /hpf Urine HCG, Qual (Not Detectd) 12/07/19 Range/Units 16:18 WBC (3.8-10.6) k/uL RBC (3.80-5.40) m/uL Hgb (11.4-16.0) gm/dL Hct (34.0-46.0) % MCV (80.0-100.0) fL MCH (25.0-35.0) pg MCHC (31.0-37.0) g/dL RDW (11.5-15.5) % Plt Count (150-450) k/uL Neutrophils % % Lymphocytes % % Monocytes % % Eosinophils % % Basophils % % Neutrophils # (1.3-7.7) k/uL Lymphocytes # (1.0-4.8) k/uL Monocytes # (0-1.0) k/uL Eosinophils # (0-0.7) k/uL Basophils # (0-0.2) k/uL Sodium (137-145) mmol/L Potassium (3.5-5.1) mmol/L Chloride (98-107) mmol/L Carbon Dioxide (22-30) mmol/L Anion Gap mmol/L BUN (7-17) mg/dL Creatinine (0.52-1.04) mg/dL Est GFR (CKD-EPI)AfAm (>60 ml/min/1.73 sqM) Est GFR (CKD-EPI)NonAf (>60 ml/min/1.73 sqM) Glucose (74-99) mg/dL Calcium (8.4-10.2) mg/dL Urine Color Urine Appearance (Clear) Urine pH (5.0-8.0) Ur Specific [place] (1.001-1.035) Urine Protein (Negative) Urine Glucose (UA) (Negative) Urine Ketones (Negative) Urine Blood (Negative) Urine Nitrite (Negative) Urine Bilirubin (Negative) Urine Urobilinogen (<2.0) mg/dL Ur Leukocyte Esterase (Negative) Urine RBC (0-5) /hpf Urine WBC (0-5) /hpf Ur Squamous Epith Cells (0-4) /hpf Urine Mucus (None) /hpf Urine HCG, Qual Not Detected (Not Detectd) Disposition Clinical Impression: Flank pain Disposition: HOME SELF-CARE Condition: Good Instructions (If sedation given, give patient instructions): Abdominal Pain (ED) Is patient prescribed a controlled substance at d/c from ED?: No Referrals: Mateus Curtis DO [Primary Care Provider] - 1-2 days Time of Disposition: 17:05
[2019-12-07] MEDS ORDERED: ONDANSETRON 4 MG/2 ML VIAL IVP STA (16:32)
[2019-12-07 16:33] LABS: Appearance,Urine Clear (Clear); Bilirubin,Urine Negative (Negative); Blood,Urine Negative (Negative); Color,Urine Colorless; Glucose,Urine (UA) Negative (Negative); Ketones,Urine Negative (Negative); Leukocyte Esterase,Urine Moderate (Negative); Mucus,Urine Rare /hpf; Nitrite,Urine Negative (Negative); Protein,Urine Negative (Negative); RBC,Urine 1 /hpf (0-5); Specific Gravity,Urine 1.003 (1.001-1.035); Squamous Epithelial Cell,Urine 3 /hpf (0-4); Urobilinogen,Urine <2.0 mg/dL (<2.0); WBC,Urine 9 /hpf (0-5)
[2019-12-07 16:37] LABS: African American GFR (CKD) >90 (>60 ml/min/1.73 sqM); Anion Gap 8 mmol/L; Blood Urea Nitrogen 13 mg/dL (7-17); Calcium 9.7 mg/dL (8.4-10.2); Carbon Dioxide 22 mmol/L (22-30); Chloride 107 mmol/L (98-107); Glucose 161 mg/dL (74-99); Non-African American GFR(CKD) >90 (>60 ml/min/1.73 sqM); Potassium 4.4 mmol/L (3.5-5.1); Sodium 137 mmol/L (137-145)
[2019-12-07 16:50] LABS: Basophils # (A) 0.1 k/uL (0-0.2); Basophils % (A) 1 %; Eosinophils # (A) 0.3 k/uL (0-0.7); Eosinophils % (A) 3 %; HCT 47.5 % (34.0-46.0); HGB 15.7 gm/dL (11.4-16.0); Lymphocytes # (A) 2.7 k/uL (1.0-4.8); Lymphocytes % (A) 25 %; MCH 28.2 pg (25.0-35.0); MCHC 33.2 g/dL (31.0-37.0); MCV 84.9 fL (80.0-100.0); Mean Platelet Volume 8.3; Monocytes # (A) 0.6 k/uL (0-1.0); Monocytes % (A) 5 %; Neutrophils # (A) 6.8 k/uL (1.3-7.7); Neutrophils % (A) 65 %; Platelet Count 229 k/uL (150-450); RBC 5.59 m/uL (3.80-5.40); RDW 13.6 % (11.5-15.5); WBC 10.6 k/uL (3.8-10.6)
--- NOTE | 2019-12-07 17:01 | CT ---
EXAMINATION TYPE: CT abdomen pelvis wo con DATE OF EXAM: 12/07/2019 COMPARISON: 01/01/2019 HISTORY: Right side flank pain and hematuria. CT DLP: 948.1 mGycm Automated exposure control for dose reduction was used. Lung bases are clear. There is no pleural effusion. Heart size is normal. There is no pericardial eff usion. Liver spleen stomach pancreas appear normal. Bile ducts are not dilated. There are clips from cholecy stectomy. There is no adrenal mass. Kidneys have normal size. There are small calculi in the left kidney that m easure up to 3 mm. There is some fullness of the left renal pelvis. Right kidney shows no sign of obs truction. The ureters are not dilated. Bladder distends smoothly. There is no evidence of ureteral ca lculus. There is no inguinal hernia. There are phleboliths in the pelvis. Uterus is anteverted. There is no evidence of pelvic mass. Appendix appears normal. There is no mesenteric edema. There is no ascites or free air. There is no b owel obstruction. The lumbar vertebra have normal alignment. There is narrowing at L5-S1 disc with sclerosis and spur f ormation. There is no compression fracture. I see no focal bone destruction. Bony pelvis is intact. H ip joints are intact. IMPRESSION: Nonobstructing left renal calculi similar to old exam. No evidence of renal obstruction. Normal appen gali. I do not see a cause for right flank pain.
[2019-12-07 17:24] VITALS: BP 129/83; PULSE 87; RESP 18
== END 2019-12-07 17:23 | disposition home or self-care (01) ==
LOC: EC 15:36
DX: R10.9 Unspecified abdominal pain (principal); N20.0 Calculus of kidney; E11.9 Type 2 diabetes mellitus without complications; F31.9 Bipolar disorder, unspecified; F41.9 Anxiety disorder, unspecified; G89.29 Other chronic pain; M54.9 Dorsalgia, unspecified; F17.200 Nicotine dependence, unspecified, uncomplicated; Z79.899 Other long term (current) drug therapy; Z79.84 Long term (current) use of oral hypoglycemic drugs; Z88.1 Allergy status to other antibiotic agents; Z91.030 Bee allergy status; Z87.442 Personal history of urinary calculi; Z90.49 Acquired absence of other specified parts of digestive tract
CPT/HCPCS: 36415; 80048; 85025; 81001; 81025; 74176; 99284; 96374; 96375; 96361; J2270; J2405

== ENCOUNTER → 2019-12-15 | Outpatient (CLI) | payer OTHER ==
--- NOTE | 2019-12-15 14:24 | XR ---
EXAMINATION TYPE: XR wrist complete LT DATE OF EXAM: 12/15/2019 COMPARISON: NONE HISTORY: Pain TECHNIQUE: Four views submitted. FINDINGS: The osseous structures are intact. The joint spaces are preserved and there is no acute fracture or dislocation. Sclerosis of the distal radius likely in the basis of bone island. IMPRESSION: 1. No definite acute fracture or dislocation if symptoms persist, follow-up study in 7 to 10 days wo uld be suggested
== END | disposition home or self-care (01) ==
LOC: RADXRMAIN 14:10
PROVIDERS: ATTEND Emergency Medicine
DX: S60.212A Contusion of left wrist, initial encounter (principal)

== ENCOUNTER 2020-01-01 11:01 | Emergency (ER) | payer OTHER ==
[2020-01-01 11:30] LABS: Glucose,Whole Blood 212 mg/dL (75-99)
[2020-01-01] MEDS ORDERED: ONDANSETRON 4 MG/2 ML VIAL IVP STA (11:31)
[2020-01-01] MEDS ORDERED: SODIUM CHLORIDE 0.9% 1,000 ML IV STA ×2 (11:31)
[2020-01-01] MEDS ORDERED: SODIUM CHLORIDE 0.9% 500 ML 500 ML IV STA (11:31)
--- NOTE | 2020-01-01 11:33 | ED ---
Recheck HPI - General Chief Complaint: Nausea/Vomiting/Diarrhea Stated Complaint: Hyperglycemia, vomiting Time Seen by Provider: 01/01/20 11:31 Source: patient, RN notes reviewed, old records reviewed Mode of arrival: ambulatory Limitations: no limitations - History of Present Illness Initial Comments: This is a 44-year-old female DF for evaluation. She has history of diabetes coming and not feeling well with nausea and vomiting. Weakness. Patient has persistent we elevated blood sugar at home. Taking all medications as prescribed. No recent travel history sick contacts no known fevers no diarrhea. MD Complaint: abnormal lab (Elevated blood sugar at home) -: unknown Returns Today for: Called Because of Abnormal Lab/Test, other (Patient having persistent nausea vomiting and weakness) Symptoms Since Prior Visit: no new symptoms Associated Symptoms: none - Related Data Home Medications Medication Instructions Recorded Confirmed Albuterol Inhaler (Mhu) [Ventolin 2 puff INHALATION RT-QID PRN 07/04/19 07/04/19 Hfa Inhaler (Mhu)] Lacosamide [Vimpat] 100 mg PO BID 07/04/19 07/04/19 Methocarbamol [Robaxin-750] 750 mg PO TID PRN 07/04/19 07/04/19 Naproxen 500 mg PO TID PRN 07/04/19 07/04/19 Pregabalin [Lyrica] 150 mg PO TID 07/04/19 07/04/19 Sertraline [Zoloft] 100 mg PO DAILY 07/04/19 07/04/19 metFORMIN HCL 1,000 mg PO BID 07/04/19 07/04/19 oxyCODONE-APAP 7.5-325MG [Percocet 1 tab PO TID PRN 07/04/19 07/04/19 7.5-325 mg] Previous Rx's Medication Instructions Recorded Insulin Aspart [NovoLOG Flexpen] 6 units SQ AC-TID #3 pen 07/06/19 Insulin Detemir [Levemir Flextouch] 20 units SQ HS #3 pen 07/06/19 Metoclopramide [Reglan] 5 mg PO AC-TID #90 tab 07/06/19 Amoxic-Pot Clav 875-125Mg 1 tab PO Q12HR 10 Days #20 tab 08/23/19 [Augmentin 875-125] Allergies Allergy/AdvReac Type Severity Reaction Status Date / Time clarithromycin [From Biaxin] Allergy Unknown Verified 01/01/20 11:30 BBE STINGS Allergy Unknown Uncoded 01/01/20 11:30 MACULIDE Allergy Unknown Uncoded 01/01/20 11:30 Review of Systems ROS Statement: Those systems with pertinent positive or pertinent negative responses have been documented in the HPI. ROS Other: All systems not noted in ROS Statement are negative. Past Medical History Past Medical History: Diabetes Mellitus, Pneumonia Additional Past Medical History / Comment(s): BRONCHITIS, KIDNEY STONES,UTI, ANX IETY ,BIPOLAR DEPRESSION chronic back pain History of Any Multi-Drug Resistant Organisms: None Reported Past Surgical History: Cholecystectomy Additional Past Surgical History / Comment(s): PAST MED HX LISTED CERCLAGE PROCEDURE X2 Past Anesthesia/Blood Transfusion Reactions: Postoperative Nausea & Vomiting (PONV) Past Psychological History: Anxiety, Bipolar, Depression Smoking Status: Current every day smoker Past Alcohol Use History: None Reported Past Drug Use History: None Reported - Past Family History Mother Family Medical History: Congestive Heart Failure (CHF), Diabetes Mellitus, Hyperlipidemia, Hypertension Additional Family Medical History / Comment(s): Mother at age 79 from diabetes, occasions. KIDNEY FAILURE Father Family Medical History: Diabetes Mellitus Additional Family Medical History / Comment(s): Father at 89 from old age with history of diabetes. COLLAPSED LUNG Brother(s) Additional Family Medical History / Comment(s): Patient has a total of 5 brothers. One has passed with history of diabetes. A second brother does have diabetes and alive. Patient has 6 sisters and she does not know any other medical history. Patient has 3 children: 2 daughters and 1 son with no major medical problems. General Exam Limitations: no limitations General appearance: alert, in no apparent distress Head exam: Present: atraumatic, normocephalic, normal inspection Eye exam: Present: normal appearance, PERRL, EOMI. Absent: scleral icterus, conjunctival injection, periorbital swelling ENT exam: Present: normal exam, mucous membranes moist Neck exam: Present: normal inspection. Absent: tenderness, meningismus, lymphadenopathy Respiratory exam: Present: normal lung sounds bilaterally. Absent: respiratory distress, wheezes, rales, rhonchi, stridor Cardiovascular Exam: Present: regular rate, normal rhythm, normal heart sounds. Absent: systolic murmur, diastolic murmur, rubs, gallop, clicks GI/Abdominal exam: Present: soft, normal bowel sounds. Absent: distended, tenderness, guarding, rebound, rigid Extremities exam: Present: normal inspection, full ROM, normal capillary refill. Absent: tenderness, pedal edema, joint swelling, calf tenderness Back exam: Present: normal inspection Neurological exam: Present: alert, oriented X3, CN II-XII intact Psychiatric exam: Present: normal affect, normal mood Skin exam: Present: warm, dry, intact, normal color. Absent: rash Course Vital Signs 01/01/20 01/01/20 11:24 13:18 Temperature 98.6 F Pulse Rate 96 80 Respiratory 16 18 Rate Blood Pressure 108/70 104/57 O2 Sat by Pulse 97 96 Oximetry - Reevaluation(s) Reevaluation #1: 01/01/20 13:52 Medical record is reviewed Reevaluation #2: 01/01/20 13:52 Patient informed of findings, questions answered Reevaluation #3: 01/01/20 13:52 Patient feels good for discharge but does not want to return to work Medical Decision Making - Medical Decision Making 44 female DF for evaluation patient resents today for evaluation of elevated blood sugar abdominal pain. Those are both normal here in the ER patient can be discharged home - Lab Data Result diagrams: 01/01/20 11:58 01/01/20 11:58 Lab Results 01/01/20 01/01/20 01/01/20 Range/Units 11:28 11:58 11:58 WBC 11.7 H (3.8-10.6) k/uL RBC 5.47 H (3.80-5.40) m/uL Hgb 15.5 (11.4-16.0) gm/dL Hct 46.2 H (34.0-46.0) % MCV 84.5 (80.0-100.0) fL MCH 28.3 (25.0-35.0) pg MCHC 33.5 (31.0-37.0) g/dL RDW 13.9 (11.5-15.5) % Plt Count 211 (150-450) k/uL Neutrophils % 72 % Lymphocytes % 18 % Monocytes % 5 % Eosinophils % 3 % Basophils % 1 % Neutrophils # 8.4 H (1.3-7.7) k/uL Lymphocytes # 2.1 (1.0-4.8) k/uL Monocytes # 0.6 (0-1.0) k/uL Eosinophils # 0.4 (0-0.7) k/uL Basophils # 0.1 (0-0.2) k/uL Sodium (137-145) mmol/L Potassium (3.5-5.1) mmol/L Chloride (98-107) mmol/L Carbon Dioxide (22-30) mmol/L Anion Gap mmol/L BUN (7-17) mg/dL Creatinine (0.52-1.04) mg/dL Est GFR (CKD-EPI)AfAm (>60 ml/min/1.73 sqM) Est GFR (CKD-EPI)NonAf (>60 ml/min/1.73 sqM) Glucose (74-99) mg/dL POC Glucose (mg/dL) 212 H (75-99) mg/dL POC Glu Residential Life Director ID Jose Henderson Calcium (8.4-10.2) mg/dL Phosphorus (2.5-4.5) mg/dL Magnesium (1.6-2.3) mg/dL Total Bilirubin (0.2-1.3) mg/dL AST (14-36) U/L ALT (4-34) U/L Alkaline Phosphatase (38-126) U/L Total Protein (6.3-8.2) g/dL Albumin (3.5-5.0) g/dL Urine Color Yellow Urine Appearance Cloudy H (Clear) Urine pH 7.0 (5.0-8.0) Ur Specific [place] 1.020 (1.001-1.035) Urine Protein Negative (Negative) Urine Glucose (UA) Negative (Negative) Urine Ketones Negative (Negative) Urine Blood Negative (Negative) Urine Nitrite Negative (Negative) Urine Bilirubin Negative (Negative) Urine Urobilinogen 4.0 (<2.0) mg/dL Ur Leukocyte Esterase Negative (Negative) Urine WBC 2 (0-5) /hpf Ur Squamous Epith Cells 3 (0-4) /hpf Urine Bacteria Rare H (None) /hpf Urine Mucus Rare H (None) /hpf Acetone, Qual (Negative) 01/01/20 Range/Units 11:58 WBC (3.8-10.6) k/uL RBC (3.80-5.40) m/uL Hgb (11.4-16.0) gm/dL Hct (34.0-46.0) % MCV (80.0-100.0) fL MCH (25.0-35.0) pg MCHC (31.0-37.0) g/dL RDW (11.5-15.5) % Plt Count (150-450) k/uL Neutrophils % % Lymphocytes % % Monocytes % % Eosinophils % % Basophils % % Neutrophils # (1.3-7.7) k/uL Lymphocytes # (1.0-4.8) k/uL Monocytes # (0-1.0) k/uL Eosinophils # (0-0.7) k/uL Basophils # (0-0.2) k/uL Sodium 139 (137-145) mmol/L Potassium 4.0 (3.5-5.1) mmol/L Chloride 107 (98-107) mmol/L Carbon Dioxide 24 (22-30) mmol/L Anion Gap 8 mmol/L BUN 18 H (7-17) mg/dL Creatinine 0.65 (0.52-1.04) mg/dL Est GFR (CKD-EPI)AfAm >90 (>60 ml/min/1.73 sqM) Est GFR (CKD-EPI)NonAf >90 (>60 ml/min/1.73 sqM) Glucose 209 H (74-99) mg/dL POC Glucose (mg/dL) (75-99) mg/dL POC Glu Residential Life Director ID Calcium 9.1 (8.4-10.2) mg/dL Phosphorus 3.3 (2.5-4.5) mg/dL Magnesium 1.6 (1.6-2.3) mg/dL Total Bilirubin 0.7 (0.2-1.3) mg/dL AST 19 (14-36) U/L ALT 17 (4-34) U/L Alkaline Phosphatase 78 (38-126) U/L Total Protein 6.6 (6.3-8.2) g/dL Albumin 3.9 (3.5-5.0) g/dL Urine Color Urine Appearance (Clear) Urine pH (5.0-8.0) Ur Specific [place] (1.001-1.035) Urine Protein (Negative) Urine Glucose (UA) (Negative) Urine Ketones (Negative) Urine Blood (Negative) Urine Nitrite (Negative) Urine Bilirubin (Negative) Urine Urobilinogen (<2.0) mg/dL Ur Leukocyte Esterase (Negative) Urine WBC (0-5) /hpf Ur Squamous Epith Cells (0-4) /hpf Urine Bacteria (None) /hpf Urine Mucus (None) /hpf Acetone, Qual Negative (Negative) - Radiology Data Radiology results: report reviewed (CT head and pelvis negative for acute disease), image reviewed Disposition Clinical Impression: Hyperglycemia, Abdominal pain Disposition: HOME SELF-CARE Condition: Good Instructions (If sedation given, give patient instructions): Abdominal Pain (ED), Diabetic Hyperglycemia (ED) Is patient prescribed a controlled substance at d/c from ED?: No Referrals: Mateus Curtis DO [Primary Care Provider] - 1-2 days
[2020-01-01 12:08] LABS: Basophils # (A) 0.1 k/uL (0-0.2); Basophils % (A) 1 %; Eosinophils # (A) 0.4 k/uL (0-0.7); Eosinophils % (A) 3 %; HCT 46.2 % (34.0-46.0); HGB 15.5 gm/dL (11.4-16.0); Lymphocytes # (A) 2.1 k/uL (1.0-4.8); Lymphocytes % (A) 18 %; MCH 28.3 pg (25.0-35.0); MCHC 33.5 g/dL (31.0-37.0); MCV 84.5 fL (80.0-100.0); Mean Platelet Volume 7.7; Monocytes # (A) 0.6 k/uL (0-1.0); Monocytes % (A) 5 %; Neutrophils # (A) 8.4 k/uL (1.3-7.7); Neutrophils % (A) 72 %; Platelet Count 211 k/uL (150-450); RBC 5.47 m/uL (3.80-5.40); RDW 13.9 % (11.5-15.5); WBC 11.7 k/uL (3.8-10.6)
[2020-01-01 12:15] LABS: Appearance,Urine Cloudy (Clear); Bacteria,Urine Rare /hpf; Bilirubin,Urine Negative (Negative); Blood,Urine Negative (Negative); Color,Urine Yellow; Glucose,Urine (UA) Negative (Negative); Ketones,Urine Negative (Negative); Leukocyte Esterase,Urine Negative (Negative); Mucus,Urine Rare /hpf; Nitrite,Urine Negative (Negative); Protein,Urine Negative (Negative); Squamous Epithelial Cell,Urine 3 /hpf (0-4); WBC,Urine 2 /hpf (0-5)
[2020-01-01 12:24] LABS: ALT 17 U/L (4-34); AST 19 U/L (14-36); African American GFR (CKD) >90 (>60 ml/min/1.73 sqM); Albumin 3.9 g/dL (3.5-5.0); Alkaline Phosphatase 78 U/L (38-126); Anion Gap 8 mmol/L; Blood Urea Nitrogen 18 mg/dL (7-17); Calcium 9.1 mg/dL (8.4-10.2); Carbon Dioxide 24 mmol/L (22-30); Chloride 107 mmol/L (98-107); Glucose 209 mg/dL (74-99); Magnesium 1.6 mg/dL (1.6-2.3); Non-African American GFR(CKD) >90 (>60 ml/min/1.73 sqM); Phosphorus 3.3 mg/dL (2.5-4.5); Sodium 139 mmol/L (137-145); Total Bilirubin 0.7 mg/dL (0.2-1.3); Total Protein 6.6 g/dL (6.3-8.2)
[2020-01-01] MEDS ORDERED: MORPHINE SULFATE 4 MG/ML SYRINGE IVP STA (12:46)
[2020-01-01 13:21] VITALS: RESP 18
--- NOTE | 2020-01-01 13:34 | CT ---
EXAMINATION TYPE: CT abdomen pelvis w con DATE OF EXAM: 01/01/2020 COMPARISON: 2019 INDICATION: Abd pain DLP: 1596 mGycm, Automated exposure control for dose reduction was used. CONTRAST: 100 mL of Isovue 300. Study performed without Oral Contrast TECHNIQUE: Axial images were obtained from above the diaphragm to the pubic rami in the axial plane a t 5 mm thick sections. Reconstructed images are reviewed on the computer in the coronal plane. FINDINGS: Limited CT sections are obtained the lung bases. The lung bases are clear. CT ABDOMEN: Liver: Normal Spleen: Normal Pancreas: Normal Adrenal glands: The adrenal glands are normal. Gallbladder: Surgically absent Kidneys: No masses are evident. No hydronephrosis is present. No cysts are present. Delayed images were obtained through the kidneys which remain unremarkable Aorta: Vascular calcification is within the aorta. Inferior vena cava: Normal. CT PELVIS: Loops of bowel within the abdomen and pelvis are normal. Study is without oral contrast limiting bowel evaluation. Appendix: Normal as visualized. Urinary bladder: Normal. Genitourinary structures: Uterus is normal. Adnexal regions appear normal Osseous structures: No suspicious lytic or sclerotic lesions. IMPRESSIONS: 1. No suspicious acute changes.
[2020-01-01 14:15] VITALS: BP 106/53; PULSE 83; TEMP 98.5
== END 2020-01-01 14:15 | disposition home or self-care (01) ==
LOC: EC 11:01
DX: R10.9 Unspecified abdominal pain (principal); E11.65 Type 2 diabetes mellitus with hyperglycemia; G89.29 Other chronic pain; M54.9 Dorsalgia, unspecified; F41.9 Anxiety disorder, unspecified; F31.9 Bipolar disorder, unspecified; F17.200 Nicotine dependence, unspecified, uncomplicated; Z79.899 Other long term (current) drug therapy; Z79.84 Long term (current) use of oral hypoglycemic drugs; Z88.1 Allergy status to other antibiotic agents; Z91.030 Bee allergy status; Z91.048 Other nonmedicinal substance allergy status; Z87.442 Personal history of urinary calculi
CPT/HCPCS: 36415; 80053; 82009; 83735; 84100; 85025; 81001; 74177; 99285; 96374; 96361 ×2; J2405; Q9967

== ENCOUNTER → 2020-04-24 | Day surgery (SDC) | payer OTHER ==
[2020-04-19 14:46] VITALS: BMI 32.4
[~2020-04-24] MED LIST: LACTATED RINGERS 1,000 ML IV SCH; LIDOCAINE 1% (10MG/ML) FOR IV START INTRADERMA PRN; MIDAZOLAM 2 MG/2 ML VIAL IV PRN; PROPOFOL 10 MG/ML 20 ML VIAL IV ONE
[2020-04-24 08:23] LABS: Glucose,Whole Blood 201 mg/dL (75-99)
[2020-04-24 08:25] VITALS: RESP 16; TEMP 98.1
--- NOTE | 2020-04-24 08:46 | P.GSHP ---
History of Present Illness H&P Date: 04/24/20 Chief Complaint: GERD, frequent vomiting Patient here today for upper endoscopy. Patient describes 1 history of irritation and frequent vomiting. Lately has been vomiting twice daily. No melanotic stools are hematemesis. Mild epigastric pain. No previous workup. Has tried Reglan without relief. Patient with 14 year history of diabetes. Past Medical History Past Medical History: Diabetes Mellitus, Pneumonia Additional Past Medical History / Comment(s): BRONCHITIS, KIDNEY STONES, chronic back pain, probable hiatal hernia, frequent vomiting for >year History of Any Multi-Drug Resistant Organisms: None Reported Past Surgical History: Cholecystectomy Additional Past Surgical History / Comment(s): cerclage procedure for inco mpetent cervix Past Anesthesia/Blood Transfusion Reactions: Motion Sickness, Postoperative Nausea & Vomiting (PONV) Additional Past Anesthesia/Blood Transfusion Reaction / Comment(s): severe PONV, Smoking Status: Current every day smoker - Past Family History Mother Family Medical History: Congestive Heart Failure (CHF), Diabetes Mellitus, Hyperlipidemia, Hypertension Additional Family Medical History / Comment(s): Mother at age 79 from diabetes, occasions. KIDNEY FAILURE Father Family Medical History: Diabetes Mellitus Additional Family Medical History / Comment(s): Father at 89 from old age with history of diabetes. COLLAPSED LUNG Brother(s) Additional Family Medical History / Comment(s): Patient has a total of 5 brothers. One has passed with history of diabetes. A second brother does have diabetes and alive. Patient has 6 sisters and she does not know any other medical history. Patient has 3 children: 2 daughters and 1 son with no major medical problems. Medications and Allergies Home Medications Medication Instructions Recorded Confirmed Type Albuterol Inhaler (Mhu) [Ventolin 2 puff INHALATION RT-QID PRN 07/04/19 04/19/20 History Hfa Inhaler (Mhu)] Methocarbamol [Robaxin-750] 750 mg PO TID PRN 07/04/19 04/19/20 History Naproxen 500 mg PO TID PRN 07/04/19 04/19/20 History Pregabalin [Lyrica] 150 mg PO TID 07/04/19 04/19/20 History Sertraline [Zoloft] 100 mg PO DAILY 07/04/19 04/19/20 History oxyCODONE-APAP 7.5-325MG [Percocet 1 tab PO TID PRN 07/04/19 04/19/20 History 7.5-325 mg] Insulin Aspart [NovoLOG Flexpen] 6 units SQ AC-TID #3 pen 07/06/19 04/19/20 Rx Insulin Detemir [Levemir Flextouch] 20 units SQ HS #3 pen 07/06/19 04/19/20 Rx Metoclopramide [Reglan] 5 mg PO AC-TID #90 tab 07/06/19 04/19/20 Rx Allergies Allergy/AdvReac Type Severity Reaction Status Date / Time clarithromycin [From Biaxin] Allergy Unknown Verified 04/24/20 08:03 BBE STINGS Allergy Unknown Uncoded 04/24/20 08:03 MACULIDE Allergy Unknown Uncoded 04/24/20 08:03 Surgical - Exam Vital Signs Temp Pulse Resp BP Pulse Ox 98.1 F 87 16 112/75 96 04/24/20 08:08 04/24/20 08:08 04/24/20 08:08 04/24/20 08:08 04/24/20 08:08 Physical exam: General: Well-developed, well-nourished HEENT: Normocephalic, sclerae nonicteric Abdomen: Nontender, nondistended Extremities: No edema Neuro: Alert and oriented Results - Labs Abnormal Lab Results - Last 24 Hours (Table) 04/24/20 Range/Units 08:21 POC Glucose (mg/dL) 201 H (75-99) mg/dL Assessment and Plan (1) GERD (gastroesophageal reflux disease) Narrative/Plan: Will proceed with upper endoscopy Current Visit: Yes Status: Acute Code(s): K21.9 - GASTRO-ESOPHAGEAL REFLUX DISEASE WITHOUT ESOPHAGITIS SNOMED Code(s): 167865750
--- NOTE | 2020-04-24 08:56 | P.PCN ---
Date of Procedure: 04/24/20 Procedure(s) Performed: Preoperative Dx: GERD, frequent vomiting Postoperative Dx: Mild duodenitis, mild gastritis Procedure: EGD with Bx Anesthesia: Sedation Endoscopist: Dr. Carter Specimens: Duodenum, antrum Endoscopic Procedure: The patient was on the endoscopy table in the left decubitus position. The Olympus gastroscope was inserted into the oropharynx and passed under direct visualization to the region of the third portion of the duodenum. From that point the scope was slowly withdrawn inspecting all surfaces carefully. There was mild duodenitis present. No ulcers seen. A biopsy of the duodenum took place. The pylorus was widely patent. The stomach was carefully inspected. There was mild gastritis present as well. A biopsy of the antrum took place to rule out H. pylori. Retroflexion revealed a normal hiatus. The esophagus was then carefully examined. There were no neoplastic inflammatory or polypoid lesions throughout the visualized esophagus. The patient was then taken to the recovery room in stable condition per anesthesia guidelines. Recommendations: Await biopsy results. Will order a gastric emptying study to evaluate for gastroparesis
[2020-04-24 09:10] LABS: Glucose,Whole Blood 184 mg/dL (75-99)
[2020-04-24 09:21] VITALS: BP 104/62; PULSE 75
== END ==
LOC: ORWHC2ENDO 07:48
PROVIDERS: ATTEND Surgery
DX: K29.50 Unspecified chronic gastritis without bleeding (principal); K29.80 Duodenitis without bleeding; K21.9 Gastro-esophageal reflux disease without esophagitis; E11.9 Type 2 diabetes mellitus without complications; F17.210 Nicotine dependence, cigarettes, uncomplicated; F41.9 Anxiety disorder, unspecified; F31.9 Bipolar disorder, unspecified; G89.29 Other chronic pain; M54.9 Dorsalgia, unspecified; Z87.442 Personal history of urinary calculi; Z87.01 Personal history of pneumonia (recurrent); Z90.49 Acquired absence of other specified parts of digestive tract; Z88.1 Allergy status to other antibiotic agents; Z91.09 Other allergy status, other than to drugs and biological substances; Z79.4 Long term (current) use of insulin; Z79.899 Other long term (current) drug therapy; Z83.3 Family history of diabetes mellitus; Z82.49 Family history of ischemic heart disease and other diseases of the circulatory system; Z83.49 Family history of other endocrine, nutritional and metabolic diseases
CPT/HCPCS: 81025; 88305; 43239; J2704

== ENCOUNTER 2020-05-30 05:32 | Observation (INO) | payer OTHER ==
[2020-05-30] MEDS ORDERED: ASPIRIN 81 MG PO STA (06:05)
[2020-05-30] MEDS ORDERED: NITROGLYCERIN SL TABS 0.4 MG TAB SUBLINGUAL PRN ×3 (06:11→06:34)
[2020-05-30] MEDS ORDERED: ONDANSETRON 4 MG/2 ML VIAL IVP STA (06:12)
[2020-05-30] MEDS ORDERED: HYDROmorphone 0.5 MG/0.5 ML SYRINGE IVP STA (06:12)
--- NOTE | 2020-05-30 06:13 | ED ---
Chest Pain HPI - General Chief Complaint: Chest Pain Stated Complaint: Chest Pain Time Seen by Provider: 05/30/20 06:05 Source: patient Mode of arrival: ambulatory Limitations: no limitations - History of Present Illness Initial Comments: 44 or feel presenting to the ER today for chief complaint of chest discomfort 4 hours. Patient states around 2 AM she woke up with chest pain. She states it as a pushing stopping pain on the chest. She states occasionally sharp but this is rare. She denies any pain with arm movement. Patient states it radiates up towards the right-sided neck slightly. She states she has some slight jaw pain. Patient denies abdominal pain admits to nausea. Patient denies any back pain she denies any fevers specific cough she denies any significant shortness of breath. Patient denies any leg swelling calf pain hemoptysis history of cancer history of IV drug use or pulmonary embolism/DVT. She denies any recent travel or immobilization surgeries. Patient denies additional complaints she states she was concerned when the pain persisted and presented to the emergency room for further evaluation. Patient denies any taking any medications prior to arrival - Related Data Home Medications Medication Instructions Recorded Confirmed Albuterol Inhaler (Mhu) [Ventolin 2 puff INHALATION RT-QID PRN 07/04/19 04/19/20 Hfa Inhaler (Mhu)] Methocarbamol [Robaxin-750] 750 mg PO TID PRN 07/04/19 04/19/20 Naproxen 500 mg PO TID PRN 07/04/19 04/19/20 Pregabalin [Lyrica] 150 mg PO TID 07/04/19 04/19/20 Sertraline [Zoloft] 100 mg PO DAILY 07/04/19 04/19/20 oxyCODONE-APAP 7.5-325MG [Percocet 1 tab PO TID PRN 07/04/19 04/19/20 7.5-325 mg] Previous Rx's Medication Instructions Recorded Insulin Aspart [NovoLOG Flexpen] 6 units SQ AC-TID #3 pen 07/06/19 Insulin Detemir [Levemir Flextouch] 20 units SQ HS #3 pen 07/06/19 Metoclopramide [Reglan] 5 mg PO AC-TID #90 tab 07/06/19 Allergies Allergy/AdvReac Type Severity Reaction Status Date / Time clarithromycin [From Biaxin] Allergy Unknown Verified 05/30/20 05:40 BBE STINGS Allergy Unknown Uncoded 05/30/20 05:40 MACULIDE Allergy Unknown Uncoded 05/30/20 05:40 Review of Systems ROS Statement: Those systems with pertinent positive or pertinent negative responses have been documented in the HPI. ROS Other: All systems not noted in ROS Statement are negative. Past Medical History Past Medical History: Diabetes Mellitus, Pneumonia Additional Past Medical History / Comment(s): BRONCHITIS, KIDNEY STONES, chronic back pain, probable hiatal hernia, frequent vomiting for >year History of Any Multi-Drug Resistant Organisms: None Reported Past Surgical History: Cholecystectomy Additional Past Surgical History / Comment(s): cerclage procedure for incompetent cervix Past Anesthesia/Blood Transfusion Reactions: Motion Sickness, Postoperative Nausea & Vomiting (PONV) Additional Past Anesthesia/Blood Transfusion Reaction / Comment(s): severe PONV, Past Psychological History: Anxiety, Bipolar, Depression, PTSD Smoking Status: Current every day smoker Past Alcohol Use History: Rare Past Drug Use History: None Reported - Past Family History Mother Family Medical History: Congestive Heart Failure (CHF), Diabetes Mellitus, Hyperlipidemia, Hypertension Additional Family Medical History / Comment(s): Mother at age 79 from diabetes, occasions. KIDNEY FAILURE Father Family Medical History: Diabetes Mellitus Additional Family Medical History / Comment(s): Father at 89 from old age with history of diabetes. COLLAPSED LUNG Brother(s) Additional Family Medical History / Comment(s): Patient has a total of 5 brothers. One has passed with history of diabetes. A second brother does have diabetes and alive. Patient has 6 sisters and she does not know any other medical history. Patient has 3 children: 2 daughters and 1 son with no major medical problems. General Exam - General Exam Comments Initial Comments: General: The patient is awake and alert, in no distress Eye: Pupils are equal, round and reactive to light, extra-ocular movements are intact. No nystagmus. There is normal conjunctiva bilaterally. No signs of icterus. Ears, nose, mouth and throat: There are moist mucous membranes and no oral lesions. Neck: The neck is supple, there is no tenderness or JVD. Cardiovascular: There is a regular rate and rhythm. No murmur, rub or gallop is appreciated. Respiratory: Lungs are clear to auscultation, respirations are non-labored, breath sounds are equal. No wheezes, stridor, rales, or rhonchi. Gastrointestinal: Soft, non-distended, non-tender abdomen without masses or organomegaly noted. There is no rebound or guarding present. Musculoskeletal: Normal ROM, no tenderness. Strength 5/5. Sensation intact. Pulses equal bilaterally 2+. Neurological: A&O x 3. CN II-XII intact grossly, There are no obvious motor or sensory deficits. Coordination appears grossly intact. Speech is normal. Skin: Skin is warm and dry and no rashes or lesions are noted. Psychiatric: Cooperative, appropriate mood & affect, normal judgment. Limitations: no limitations Course Vital Signs 05/30/20 05/30/20 05:37 06:37 Temperature 98.2 F Pulse Rate 104 H 98 Respiratory 18 20 Rate Blood Pressure 157/102 110/87 O2 Sat by Pulse 99 97 Oximetry - Reevaluation(s) Reevaluation #1: Not given EKG until arrived 6AM. 05/30/20 06:13 Chest Pain MDM - MDM 44yo female presenting today for chief complaint of chest discomfort. Some relief with nitroglycerin and Dilaudid. Patient initial troponin negative. CXR no focal infiltrates/effusions. Patient initially discussed with Dr. Ruiz who reviewed both initial and repeat EKG. Case discussed with Dr. Ruiz who is agreeable to admission and care plan contacted Dr. Butts who accepted admission. On multiple reevaluations pt states pain improving, HR lower 70-80 on telemetry. Ventricular rate 102 bpm, [place] 156 ms, QRS scientologist 80 ms, QT/QTC 326/424. This is sinus tach with occasional PVCs. No ST elevation or depression is appreciated. Ventricular rate 100 bpm, [place] interval 162 ms QRS duration 76 ms, QT/QTC 346/446 pulse seconds.Skin change from previous EKG.Again no ST Elevation/depression Disposition Clinical Impression: Chest discomfort, Chest pressure, Nausea, Leukocytosis, Blood glucose elevated Disposition: ADMITTED IP TO THIS HOSP Condition: Stable Is patient prescribed a controlled substance at d/c from ED?: No Referrals: Mateus Curtis DO [Primary Care Provider] - 1-2 days Time of Disposition: 07:44 Decision to Admit Reason: Admit from EC Decision Date: 05/30/20 Decision Time: 07:44
[2020-05-30 06:27] LABS: Basophils # (A) 0.1 k/uL (0-0.2); Basophils % (A) 1 %; Eosinophils # (A) 0.3 k/uL (0-0.7); Eosinophils % (A) 2 %; HCT 51.1 % (34.0-46.0); HGB 17.2 gm/dL (11.4-16.0); Lymphocytes # (A) 3.2 k/uL (1.0-4.8); Lymphocytes % (A) 21 %; MCH 29.6 pg (25.0-35.0); MCHC 33.6 g/dL (31.0-37.0); Mean Platelet Volume 8.4; Monocytes % (A) 7 %; Neutrophils # (A) 10.3 k/uL (1.3-7.7); Neutrophils % (A) 68 %; Platelet Count 243 k/uL (150-450); RDW 13.6 % (11.5-15.5); WBC 15.1 k/uL (3.8-10.6)
[2020-05-30 06:39] LABS: ALT 22 U/L (4-34); AST 21 U/L (14-36); African American GFR (CKD) >90 (>60 ml/min/1.73 sqM); Albumin 4.5 g/dL (3.5-5.0); Alkaline Phosphatase 133 U/L (38-126); Anion Gap 14 mmol/L; Blood Urea Nitrogen 25 mg/dL (7-17); Calcium 9.9 mg/dL (8.4-10.2); Carbon Dioxide 19 mmol/L (22-30); Chloride 100 mmol/L (98-107); Glucose 362 mg/dL (74-99); Magnesium 1.2 mg/dL (1.6-2.3); Non-African American GFR(CKD) >90 (>60 ml/min/1.73 sqM); Potassium 4.8 mmol/L (3.5-5.1); Sodium 133 mmol/L (137-145); Total Bilirubin 0.7 mg/dL (0.2-1.3); Total Protein 7.9 g/dL (6.3-8.2)
[2020-05-30] MEDS ORDERED: INSULIN REGULAR 100 UNIT/ML VIAL SQ ONE (06:51)
[2020-05-30] MEDS ORDERED: SODIUM CHLORIDE 0.9% 500 ML 500 ML IV ONE (06:52)
[2020-05-30 06:59] LABS: Prothrombin Time 10.3 sec (9.0-12.0)
[2020-05-30] MEDS ORDERED: MAGNESIUM OXIDE 400 MG TAB PO STA (07:01)
[2020-05-30 07:13] LABS: Glucose,Whole Blood 330 mg/dL (75-99)
--- NOTE | 2020-05-30 07:23 | XR ---
EXAMINATION TYPE: XR chest 2V DATE OF EXAM: 05/30/2020 COMPARISON: 05/01/2019 HISTORY: 44-year-old female with chest pain TECHNIQUE: PA and lateral views FINDINGS: The cardiomediastinal silhouette, aorta, and pulmonary vasculature are within normal limits. Mild int erstitial prominence is unchanged. Lungs and pleural spaces are clear. IMPRESSION: Chronic changes, possible underlying bronchitis or chronic asthma. Otherwise, no acute cardiopulmonar y process.
[2020-05-30] MEDS: SODIUM CHLORIDE 0.9% 1,000 ML IV SCH ×2 (07:28→22:24)
[2020-05-30 07:41] LABS: Appearance,Urine Clear (Clear); Bilirubin,Urine Negative (Negative); Blood,Urine Negative (Negative); Color,Urine Light Yellow; Glucose,Urine (UA) 4+ (Negative); Ketones,Urine Trace (Negative); Leukocyte Esterase,Urine Negative (Negative); Nitrite,Urine Negative (Negative); PH, Urine 5.5 (5.0-8.0); Protein,Urine Trace (Negative); Specific Gravity,Urine 1.013 (1.001-1.035); Urobilinogen,Urine <2.0 mg/dL (<2.0)
[2020-05-30] MEDS ORDERED: NICOTINE 14MG/24HR PATCH TRANSDERM STA (07:57)
[2020-05-30] MEDS: MAGNESIUM SULFATE-D5W PMX 1 GM in DEXTROSE/WATER 1 100ML.BAG IVPB SCH ×2 (08:04→09:58)
--- NOTE | 2020-05-30 10:18 | ECHOF ---
Referral Reason:LV function, chest pain MEASUREMENTS -------- HEIGHT: 157.5 cm WEIGHT: 90.7 kg BP: RVIDd: 2.6 cm (< 3.3) IVSd: 1.2 cm (0.6 - 1.1) LVIDd: 2.9 cm (3.9 - 5.3) LVPWd: 1.2 cm (0.6 - 1.1) IVSs: 1.5 cm LVIDs: 1.9 cm LVPWs: 1.4 cm LA Diam: 2.7 cm (2.7 - 3.8) Ao Diam: 2.3 cm (2.0 - 3.7) AV Cusp: 1.9 cm (1.5 - 2.6) MV EXCURSION: 13.189 mm (> 18.000) MV EF SLOPE: 40 mm/s (70 - 150) EPSS: 0.3 cm MV E Guero: 0.61 m/s MV DecT: 280 ms MV A Guero: 0.79 m/s MV E/A Ratio: 0.77 RAP: 5.00 mmHg RVSP: 11.71 mmHg FINDINGS -------- Sinus rhythm. This was a techncally difficult study with suboptimal views, , Lumason utilized for enhancement of im ages. The left ventricular size is normal. There is mild concentric left ventricular hypertrophy. Overa ll left ventricular systolic function is low-normal with, an EF between 50 - 55 %. The right ventricle is normal in size. , and the LA measures 2.7cm. , and the RA measures {RA}. 5.0mg OF Lumason UTLIZED: 2 OR MORE WALL SEGMENTS NOT VISUALIZED. There is mild aortic valve sclerosis. There is no evidence of aortic regurgitation. Mild mitral regurgitation is present. Mild tricuspid regurgitation present. Right ventricular systolic pressure is normal at < 35 mmHg. The pulmonic valve was not well visualized. The aortic root size is normal. Echo free space represents a pericardial fat pad. CONCLUSIONS -------- 1. This was a techncally difficult study with suboptimal views, , Lumason utilized for enhancement of images. 2. The left ventricular size is normal. 3. There is mild concentric left ventricular hypertrophy. 4. Overall left ventricular systolic function is low-normal with, an EF between 50 - 55 %. 5. The right ventricle is normal in size. 6. , and the LA measures 2.7cm. 7. , and the RA measures {RA}. 8. 5.0mg OF Lumason UTLIZED: 2 OR MORE WALL SEGMENTS NOT VISUALIZED. 9. There is mild aortic valve sclerosis. 10. Mild mitral regurgitation is present. 11. Mild tricuspid regurgitation present. 12. Right ventricular systolic pressure is normal at < 35 mmHg. 13. The pulmonic valve was not well visualized. 14. Echo free space represents a pericardial fat pad. SIGNAL MAINTAINER HELPER: Kavya Sellers RDCS
[2020-05-30] MEDS ORDERED: methocarbamoL 750 MG TAB PO PRN (10:30)
[2020-05-30] MEDS ORDERED: ALBUTEROL NEBULIZED 2.5 MG/3 ML INHALATION PRN (10:30)
--- NOTE | 2020-05-30 11:29 | P.CRDCN ---
History of Present Illness Consult date: 05/30/20 History of present illness: CHIEF COMPLAINT: Chest pain HISTORY OF PRESENT ILLNESS: This is a 44 year old female with a past medical history significant for diabetes mellitus, asthma, neuropathy, anxiety, depression, bipolar disorder, and nicotine dependence. Patient does not follow with a fur dry cleaner. We have been asked to see the patient in consultation for chest pain. 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 She reports heaviness in the middle of her chest that radiated to her left neck. She reports feeling short of breath. She states the pain was not worse with inspiration or movement. Patient states the pain persisted for approximately 2 hours. She received Dilaudid and sublingual nitro which improved her pain. At the time of examination she is still co mplaining of mild discomfort. Patient is a current smoker and states she smokes 4-5 cigarette a day. She reports her mother had a history of congestive heart failure but does not believe she had any heart attacks or stents to her knowledge. Patient denies having any previous stress tests or cardiac catheterizations. Echocardiogram was completed revealing ejection fraction 50- 55%, mild mitral regurgitation and mild tricuspid regurgitation. DIAGNOSTICS: EKG reveals sinus rhythm without signs of acute ischemia Chest xray possible underlying bronchitis or chronic asthma Laboratory data: WBC 15.1. Hemoglobin 17.2. Platelet count 243. Sodium 133. Potassium 4.8. BUN 25. Creatinine 0.71. Glucose 362. Lactic acid 1.7. Troponin negative 2 Current home cardiac medications include none REVIEW OF SYSTEMS: At the time of my exam: CONSTITUTIONAL: Denies fever or chills. HEENT: Denies blurred vision, vision changes, or eye pain. Denies hemoptysis CARDIOVASCULAR: Denies chest pain, orthopnea, PND or palpitations RESPIRATORY: No shortness of breath. GASTROINTESTINAL: Denies abdominal pain. Denies nausea or vomiting. HEMATOLOGIC: Denies bleeding disorders. GENITOURINARY: Denies any blood in urine. SKIN: Denies pruitis. Denies rash. PHYSICAL EXAM: VITAL SIGNS: Reviewed. GENERAL: Well-developed in no acute distress. HEENT: Head is normocephalic. Pupils are equal, round. Sclerae anicteric. Mucous membranes of the mouth are moist. Neck supple. No JVD or thyromegaly LUNGS: Respirations even and unlabored. Lungs diminished with mild expiratory wheezing noted at the bases. HEART: Regular rate and rhythm. S1 and S2 heard. ABDOMEN: Soft. Nondistended. Nontender. EXTREMITIES: Normal range of motion. No clubbing or cyanosis. Peripheral pulses intact. No lower extremity edema NEUROLOGIC: Awake and alert. Oriented x 3. ASSESSMENT: Chest pain Leukocytosis Hypomagnesemia Asthma Diabetes mellitus Neuropathy Anxiety Depression Bipolar disorder Nicotine dependence Morbid obesity: BMI 35.4 PLAN: Replace magnesium Obtain 3rd troponin Encouraged smoking cessation Patient will be tentatively scheduled for a dobutamine stress test in the a.m. Further recommendations pending patient's course Nurse practitioner note has been reviewed by physician. Signing provider agrees with the documented findings, assessment, and plan of care. Past Medical History Past Medical History: Asthma, Diabetes Mellitus, Pneumonia Additional Past Medical History / Comment(s): IDDM type II, neuropathy bilateral hands/feet/abdomin, past DKA, bronchitis, frequent vomiting over past year with 100# weight loss per pt/recent EGD should gastritis/duodenitis, IBS, chronic low back pain, nephrolithiasis, UTI. History of Any Multi-Drug Resistant Organisms: None Reported Past Surgical History: Cholecystectomy Additional Past Surgical History / Comment(s): 04/24/20 EGD, ESWL L ureteral calculi, cerclage procedures for incompetent cervix Past Anesthesia/Blood Transfusion Reactions: Motion Sickness, Postoperative Nausea & Vomiting (PONV) Additional Past Anesthesia/Blood Transfusion Reaction / Comment(s): severe PONV, Smoking Status: Current every day smoker - Past Family History Mother Family Medical History: Congestive Heart Failure (CHF), Diabetes Mellitus, Hyperlipidemia, Hypertension Additional Family Medical History / Comment(s): Mother at age 79 from diabetes, occasions. KIDNEY FAILURE Father Family Medical History: Diabetes Mellitus Additional Family Medical History / Comment(s): Father at 89 from old age with history of diabetes. COLLAPSED LUNG Brother(s) Additional Family Medical History / Comment(s): Patient has a total of 5 brothers. One has passed with history of diabetes. A second brother does have diabetes and alive. Patient has 6 sisters and she does not know any other medical history. Patient has 3 children: 2 daughters and 1 son with no major medical problems. Medications and Allergies Home Medications Medication Instructions Recorded Confirmed Type Methocarbamol [Robaxin-750] 750 mg PO TID PRN 03/30/20 02/24/21 History Naproxen 500 mg PO TID PRN 07/04/19 05/30/20 History Pregabalin [Lyrica] 150 mg PO TID 07/04/19 05/30/20 History Sertraline [Zoloft] 100 mg PO DAILY 07/04/19 05/30/20 History oxyCODONE-APAP 7.5-325MG [Percocet 1 tab PO TID PRN 07/04/19 05/30/20 History 7.5-325 mg] Metoclopramide [Reglan] 5 mg PO AC-TID #90 tab 07/06/19 05/30/20 Rx Albuterol Inhaler [Ventolin Hfa 2 puff INHALATION RT-QID PRN 05/30/20 05/30/20 History Inhaler] Insulin Glargine,Hum.rec.anlog 80 unit SQ HS 05/30/20 05/30/20 History [Basaglar Kwikpen U-100] Insulin Lispro [Admelog] See Protocol SQ AC-TID 05/30/20 05/30/20 History Allergies Allergy/AdvReac Type Severity Reaction Status Date / Time bee venom protein (honey bee) Allergy Verified 05/30/20 10:23 clarithromycin [From Biaxin] Allergy Unknown Verified 05/30/20 10:23 MACULIDE Allergy Unknown Uncoded 05/30/20 10:23 Physical Exam Vitals: Vital Signs Temp Pulse Pulse Resp BP BP Pulse Ox 05/30/20 09:35 97.9 F 83 14 128/75 96 05/30/20 09:00 86 17 124/92 97 05/30/20 06:37 98 20 110/87 97 05/30/20 05:37 98.2 F 104 H 18 157/102 99 Intake and Output 05/29/20 05/30/20 05/30/20 22:59 06:59 14:59 Other: Weight 90.718 kg 90.718 kg Results 05/30/20 05:58 05/30/20 05:58 Cardiac Enzymes 05/30/20 05/30/20 05/30/20 Range/Units 05:58 05:58 08:55 AST 21 (14-36) U/L Troponin I <0.012 <0.012 (0.000-0.034) ng/mL Coagulation 05/30/20 Range/Units 05:58 PT 10.3 (9.0-12.0) sec APTT 21.0 L (22.0-30.0) sec CBC 05/30/20 Range/Units 05:58 WBC 15.1 H (3.8-10.6) k/uL RBC 5.80 H (3.80-5.40) m/uL Hgb 17.2 H (11.4-16.0) gm/dL Hct 51.1 H (34.0-46.0) % Plt Count 243 (150-450) k/uL Comprehensive Metabolic Panel 05/30/20 Range/Units 05:58 Sodium 133 L (137-145) mmol/L Potassium 4.8 (3.5-5.1) mmol/L Chloride 100 (98-107) mmol/L Carbon Dioxide 19 L (22-30) mmol/L BUN 25 H (7-17) mg/dL Creatinine 0.71 (0.52-1.04) mg/dL Glucose 362 H (74-99) mg/dL Calcium 9.9 (8.4-10.2) mg/dL AST 21 (14-36) U/L ALT 22 (4-34) U/L Alkaline Phosphatase 133 H (38-126) U/L Total Protein 7.9 (6.3-8.2) g/dL Albumin 4.5 (3.5-5.0) g/dL Current Medications Generic Name Dose Route Start Last Admin Trade Name Freq PRN Reason Stop Dose Admin Albuterol Sulfate 2.5 mg 05/30/20 10:30 Albuterol Nebulized 2.5 Mg/3 Ml INHALATION RT-QID PRN Shortness Of Breath Aspirin 325 mg 05/31/20 09:00 Aspirin 325 Mg Tab PO DAILY YASMIN Sodium Chloride 1,000 mls @ 75 mls/hr 05/30/20 07:00 05/30/20 07:28 Saline 0.9% IV 75 mls/hr .[id number] YASMIN Administration Dobutamine HCl/Dextrose 500 mg 250 mls @ 27.215 mls/hr 05/31/20 06:00 / IV Solution IV 05/31/20 06:01 .Q9H12M PRN Per Protocol Protocol 10 MCG/KG/MIN Insulin Aspart 0 unit 05/30/20 12:30 Insulin Aspart (Novolog) 100 Unit/Ml Vial SQ ACHS [facility] Protocol Insulin Detemir 80 unit 05/30/20 21:00 Insulin Detemir (Levemir) 100 Unit/Ml Syr SQ HS [facility] Methocarbamol 750 mg 05/30/20 10:30 Methocarbamol 750 Mg Tab PO TID PRN Muscle Pain Metoclopramide HCl 5 mg 05/30/20 12:30 Metoclopramide 5 Mg Tab PO AC-TID [facility] Nitroglycerin 0.4 mg 05/30/20 06:34 05/30/20 06:35 Nitroglycerin Sl Tabs 0.4 Mg Tab SUBLINGUAL 0.4 mg Q5M PRN Administration Chest Pain Oxycodone/Acetaminophen 1 each 05/30/20 10:30 Oxycodone-Apap 7.5-325mg 1 Each Tab PO TID PRN Pain Pregabalin 150 mg 05/30/20 16:00 Pregabalin 75 Mg Cap PO TID [facility] Sertraline HCl 100 mg 05/31/20 09:00 Sertraline 100 Mg Tab PO DAILY [facility] Intake and Output 05/29/20 05/30/20 05/30/20 22:59 06:59 14:59 Other: Weight 90.718 kg 90.718 kg Patient Weight 05/31/20 06:59 Weight 90.718 kg 05/30/20 05:58 05/30/20 05:58
[2020-05-30 11:33] LABS: Glucose,Whole Blood 294 mg/dL (75-99)
[2020-05-30] MEDS: METOCLOPRAMIDE 5 MG TAB PO SCH ×2 (12:49→17:22)
[2020-05-30] MEDS: INSULIN ASPART (NovoLOG) 100 UNIT/ML VIAL SQ SCH ×3 (12:49→20:06)
[2020-05-30] MEDS: oxyCODONE-APAP 7.5-325MG 1 EACH TAB PO PRN ×2 (12:53→22:24)
--- NOTE | 2020-05-30 13:21 | P.HPIM ---
History of Present Illness H&P Date: 05/30/20 HISTORY OF PRESENT ILLNESS This is a 44-year-old female patient of Dr. Curtis with past medical history of diabetes mellitus type 2 and diabetic neuropathy, mild intermittent asthma, manic depression, gastroesophageal reflux disease, tobacco use and dependence, kidney stones, chronic back pain under pain management with Dr. Bennett, generalized anxiety disorder. 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 She states she first became cold and then broke into a sweat and had chest pain in the midsternal area. She states she still has it at this time. She denies any history of coronary artery disease and denies any history of coronary testing in the past. Her son-in-law brought her into the hospital for evaluation. Patient presented to [facility] emergency center for evaluation. Patient was afebrile, heart rate 110, blood pressure 139/78, pulse ox 98%. WBC 7.3, hemoglobin 16.3, platelet count 292. Sodium 133, potassium 4.7, chloride 102, CO2 17 BUN 20, creatinine 0.52, blood sugar 335. Liver function tests within normal limits lipase 167. Urinalysis cloudy, blood moderate, nitrate negative, leukoesterase trace, epithelial cells 7. Acetone negative. HCG not detected. EKG normal sinus rhythm with no acute changes. Patient was given Zofran, regular insulin, 2 L of IV fluid [facility] Patient is eating all of her meals, consistent carb diet, but feels "sick" after she eats. She remains afebrile and vital signs are stable. vehicle monitor technician has been a sinus rhythm. REVIEW OF SYSTEMS Constitutional: No fever, reports 1 episode of chills, reports sweats. No weight change. No weakness, fatigue or lethargy. No daytime sleepiness. EENT: No headache. No blurred vision or double vision, no loss of vision. No loss of Hearing, no ringing in the ears, no dizziness. No nasal drainage or con gestion. No epistaxis. No sore throat. Lungs: No shortness of breath, cough, no sputum production. No wheezing. Cardiovascular: Reports chest pain, no lower extremity edema. No palpitations. No paroxysmal nocturnal dyspnea. No orthopnea. No lightheadedness or dizziness. No syncopal episodes. Abdominal: No abdominal pain. No nausea, vomiting. No diarrhea. No constipation. No bloody or tarry stools.. No loss of appetite. Genitourinary: No dysuria, increased frequency, urgency. No urinary retention. Musculoskeletal: No myalgias. No muscle weakness, no gait dysfunction, no frequent falls. No back pain. No neck pain. Integumentary: No wounds, no lesions. No rash or pruritus. No unusual bruising. No change in hair or nails. Neurologic: No aphasia. No facial droop. No change in mentation. No head injury. No headache. No paralysis. No paresthesia. Psychiatric: No depression. No anxiety. No mood swings. Endocrine: No abnormal blood sugars. No weight change. No excessive sweating or thirst. No cold intolerance. SOCIAL HISTORY Patient started smoking at age 19 up to 2 packs per day and now is at smoking 5- 6 cigarettes per day. She has rare alcohol use. She denies any marijuana or street drug use. She denies alcohol use. FAMILY HISTORY Mother at age 79 from renal failure with history of diabetes. Father at age 89 from COPD with history of tobacco use. He also had history of diabetes. Patient has a total of 5 brothers. One passed from complications of diabetes. One from cirrhosis. One from suicide. Patient has 1 brother that is living with history of colon cancer and diabetes. Patient has 6 sisters and she does not know their medical history. Patient has 2 daughters and 1 son living. They have one son has autism. Patient has had one child as premature and one as a stillborn. PHYSICAL EXAMINATION Gen: This is a 44-year-old female. She is resting on the ER stretcher and appears to be comfortable and in no acute distress. HEENT: Head is atraumatic, normocephalic. Pupils equal, round. Sclerae is anicteric. NECK: Supple. No JVD. No lymphadenopathy. No thyromegaly. LUNGS: Clear to auscultation. No wheezes or rhonchi. No intercostal retractions. HEART: Regular rate and rhythm. No murmur. ABDOMEN: Soft. Bowel sounds are present. No masses. No tenderness. EXTREMITIES: No pedal edema. No calf tenderness. NEUROLOGICAL: Patient is awake, alert and oriented x3. Cranial nerves 2 through 12 are grossly intact. ASSESSMENT AND PLAN 1. Chest pain. Cardiology consult, serial troponins, echocardiogram ordered. 2. Diabetes mellitus type 2. Continue Levemir 80 units at bedtime, NovoLog scale. 3. History of kidney stones, stable. 4. Chronic back pain, stable. Continue Lyrica 150 mg 3 times daily, Percocet one 3 times daily as needed, Robaxin 750 mg 3 times daily as needed. 5. Bipolar disorder. Continue Zoloft 100 mg daily and Lyrica. 7. Tobacco use and dependence. 8. GI prophylaxis. Protonix. 9. DVT prophylaxis. For and subcu. Patient placed as an observation status. DISCHARGE PLAN Home. Impression and plan of care have been directed as dictated by the signing physician. Elysia Duffy nurse practitioner acting as scribe for signing physician. Past Medical History Past Medical History: Diabetes Mellitus, Pneumonia Additional Past Medical History / Comment(s): BRONCHITIS, KIDNEY STONES, chronic back pain, probable hiatal hernia, frequent vomiting for >year History of Any Multi-Drug Resistant Organisms: None Reported Past Surgical History: Cholecystectomy Additional Past Surgical History / Comment(s): cerclage procedure for incompetent cervix Past Anesthesia/Blood Transfusion Reactions: Motion Sickness, Postoperative Nausea & Vomiting (PONV) Additional Past Anesthesia/Blood Transfusion Reaction / Comment(s): severe PONV, Past Psychological History: Anxiety, Bipolar, Depression, PTSD Smoking Status: Current every day smoker Past Alcohol Use History: Rare Past Drug Use History: None Reported - Past Family History Mother Family Medical History: Congestive Heart Failure (CHF), Diabetes Mellitus, Hyperlipidemia, Hypertension Additional Family Medical History / Comment(s): Mother at age 79 from diabetes, occasions. KIDNEY FAILURE Father Family Medical History: Diabetes Mellitus Additional Family Medical History / Comment(s): Father at 89 from old age with history of diabetes. COLLAPSED LUNG Brother(s) Additional Family Medical History / Comment(s): Patient has a total of 5 brothers. One has passed with history of diabetes. A second brother does have diabetes and alive. Patient has 6 sisters and she does not know any other medical history. Patient has 3 children: 2 daughters and 1 son with no major medical problems. Medications and Allergies Home Medications Medication Instructions Recorded Confirmed Type Methocarbamol [Robaxin-750] 750 mg PO TID PRN 07/04/19 05/30/20 History Naproxen 500 mg PO TID PRN 07/04/19 05/30/20 History Pregabalin [Lyrica] 150 mg PO TID 07/04/19 05/30/20 History Sertraline [Zoloft] 100 mg PO DAILY 07/04/19 05/30/20 History oxyCODONE-APAP 7.5-325MG [Percocet 1 tab PO TID PRN 07/04/19 05/30/20 History 7.5-325 mg] Metoclopramide [Reglan] 5 mg PO AC-TID #90 tab 07/06/19 05/30/20 Rx Albuterol Inhaler [Ventolin Hfa 2 puff INHALATION RT-QID PRN 05/30/20 05/30/20 History Inhaler] Insulin Glargine,Hum.rec.anlog 80 unit SQ HS 05/30/20 05/30/20 History [Surendraagllynnette Allen U-100] Insulin Lispro [Admelog] See Protocol SQ AC-TID 05/30/20 05/30/20 History Allergies Allergy/AdvReac Type Severity Reaction Status Date / Time bee venom protein (honey bee) Allergy Verified 05/30/20 10:23 clarithromycin [From Biaxin] Allergy Unknown Verified 05/30/20 10:23 MACULIDE Allergy Unknown Uncoded 05/30/20 10:23 Physical Exam Vitals: Vital Signs Temp Pulse Resp BP Pulse Ox 05/30/20 06:37 98 20 110/87 97 05/30/20 05:37 98.2 F 104 H 18 157/102 99 Intake and Output 05/29/20 05/30/20 05/30/20 22:59 06:59 14:59 Other: Weight 90.718 kg Results CBC & Chem 7: 05/30/20 05:58 05/30/20 05:58 Labs: Abnormal Lab Results - Last 24 Hours (Table) 05/30/20 05/30/20 05/30/20 Range/Units 05:58 05:58 05:58 WBC 15.1 H (3.8-10.6) k/uL RBC 5.80 H (3.80-5.40) m/uL Hgb 17.2 H (11.4-16.0) gm/dL Hct 51.1 H (34.0-46.0) % Neutrophils # 10.3 H (1.3-7.7) k/uL APTT 21.0 L (22.0-30.0) sec Sodium 133 L (137-145) mmol/L Carbon Dioxide 19 L (22-30) mmol/L BUN 25 H (7-17) mg/dL Glucose 362 H (74-99) mg/dL POC Glucose (mg/dL) (75-99) mg/dL Magnesium 1.2 L (1.6-2.3) mg/dL Alkaline Phosphatase 133 H (38-126) U/L Urine Protein (Negative) Urine Glucose (UA) (Negative) Urine Ketones (Negative) 05/30/20 05/30/20 Range/Units 07:11 07:34 WBC (3.8-10.6) k/uL RBC (3.80-5.40) m/uL Hgb (11.4-16.0) gm/dL Hct (34.0-46.0) % Neutrophils # (1.3-7.7) k/uL APTT (22.0-30.0) sec Sodium (137-145) mmol/L Carbon Dioxide (22-30) mmol/L BUN (7-17) mg/dL Glucose (74-99) mg/dL POC Glucose (mg/dL) 330 H (75-99) mg/dL Magnesium (1.6-2.3) mg/dL Alkaline Phosphatase (38-126) U/L Urine Protein Trace H (Negative) Urine Glucose (UA) 4+ H (Negative) Urine Ketones Trace H (Negative)
[2020-05-30 14:56] VITALS: BMI 35.4
[2020-05-30] MEDS: PREGABALIN 75 MG CAP PO SCH ×2 (15:05→22:21)
[2020-05-30 16:35] LABS: Glucose,Whole Blood 198 mg/dL (75-99)
[2020-05-30 19:23] LABS: Glucose,Whole Blood 296 mg/dL (75-99)
[2020-05-30] MEDS ORDERED: INSULIN DETEMIR (LEVEMIR) 100 UNIT/ML SYR SQ SCH (21:00)
[2020-05-31 05:26] LABS: Cholesterol 287 mg/dL (<200); HDL Cholesterol 44 mg/dL (40-60); Triglycerides 431 mg/dL (<150)
[2020-05-31] MEDS ORDERED: DOBUTamine DRIP for NUC MED 500 MG in DEXTROSE/WATER 1 250ML.BAG IV PRN (06:00)
[2020-05-31 07:35] LABS: Glucose,Whole Blood 143 mg/dL (75-99)
[2020-05-31 08:12] VITALS: BP 104/63; PULSE 67; RESP 18; TEMP 98.5
[2020-05-31] MEDS: INSULIN ASPART (NovoLOG) 100 UNIT/ML VIAL SQ SCH ×2 (08:46→12:25)
[2020-05-31] MEDS ORDERED: SERTRALINE 100 MG TAB PO SCH (09:00)
[2020-05-31] MEDS ORDERED: ASPIRIN 325 MG TAB PO SCH (09:00)
[2020-05-31] MEDS ORDERED: ONDANSETRON 4 MG/2 ML VIAL ONE (11:20)
[2020-05-31 11:54] LABS: Glucose,Whole Blood 116 mg/dL (75-99)
--- NOTE | 2020-05-31 12:03 | P.PN ---
Subjective Progress Note Date: 05/31/20 CHIEF COMPLAINT: Chest pain HISTORY OF PRESENT ILLNESS: 05/30/2020 This is a 44 year old female with a past medical history significant for diabetes mellitus, asthma, neuropathy, anxiety, depression, bipolar disorder, and nicotine dependence. Patient does not follow with a tour consultant. We have been asked to see the patient in consultation for chest pain. 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 She reports heaviness in the middle of her chest that radiated to her left neck. She reports feeling short of breath. She states the pain was not worse with inspiration or movement. Patient states the pain persisted for approximately 2 hours. She received Dilaudid and sublingual nitro which improved her pain. At the time of examination she is still complaining of mild discomfort. Patient is a current smoker and states she smokes 4-5 cigarette a day. She reports her mother had a history of congestive heart failure but does not believe she had any heart attacks or stents to her knowledge. Patient denies having any previous stress tests or cardiac catheterizations. Echocardiogram was completed revealing ejection fraction 50-55%, mild mitral regurgitation and mild tricuspid regurgitation. 05/31/2020 Patient examined this morning. She denies chest pain or pressure. Denies shortness of breath. Vital signs are stable. PHYSICAL EXAM: VITAL SIGNS: Reviewed. GENERAL: Well-developed in no acute distress. HEENT: Head is normocephalic. Pupils are equal, round. Sclerae anicteric. Mucous membranes of the mouth are moist. Neck supple. No JVD or thyromegaly LUNGS: Respirations even and unlabored. Lungs diminished with mild expiratory wheezing noted at the bases. HEART: Regular rate and rhythm. S1 and S2 heard. ABDOMEN: Soft. Nondistended. Nontender. EXTREMITIES: Normal range of motion. No clubbing or cyanosis. Peripheral pulses intact. No lower extremity edema NEUROLOGIC: Awake and alert. Oriented x 3. ASSESSMENT: Chest pain Leukocytosis Hypomagnesemia Asthma Diabetes mellitus Neuropathy Anxiety Depression Bipolar disorder Nicotine dependence Morbid obesity: BMI 35.4 PLAN: Patient underwent dobutamine stress test today which was negative for ischemia She may be discharged home today from a cardiac perspective Nurse practitioner note has been reviewed by physician. Signing provider agrees with the documented findings, assessment, and plan of care. Objective - Vital Signs Vital signs: Vital Signs Temp 98.5 F 02/25/21 07:26 Pulse 67 05/31/20 07:26 Resp 18 05/31/20 07:26 BP 104/63 05/31/20 07:26 Pulse Ox 98 05/31/20 07:26 Intake & Output 05/30/20 05/31/20 05/31/20 18:59 06:59 18:59 Intake Total 681 540 Balance 681 540 Weight 90.718 kg Intake: Oral 681 540 Other: Voiding Method Toilet # Voids 2 2 - Labs CBC & Chem 7: 05/30/20 05:58 05/30/20 05:58 Labs: Abnormal Lab Results - Last 24 Hours (Table) 05/30/20 05/30/20 05/30/20 Range/Units 05:58 05:58 16:33 POC Glucose (mg/dL) 198 H (75-99) mg/dL Hemoglobin A1c 11.0 H (4.0-6.0) % Triglycerides 431 H (<150) mg/dL Cholesterol 287 H (<200) mg/dL 05/30/20 05/31/20 05/31/20 Range/Units 19:19 07:30 11:45 POC Glucose (mg/dL) 296 H 143 H 116 H (75-99) mg/dL Hemoglobin A1c (4.0-6.0) % Triglycerides (<150) mg/dL Cholesterol (<200) mg/dL Microbiology - Last 24 Hours (Table) 05/30/20 07:15 Blood Culture - Preliminary Blood No Growth after 24 hours 05/30/20 07:00 Blood Culture - Preliminary Blood No Growth after 24 hours
--- NOTE | 2020-05-31 12:07 | P.DS ---
Providers Date of admission: 05/30/20 07:01 Expected date of discharge: 05/31/20 Attending physician: Mukesh Butts Consults: 05/30/20 07:53 Consult Physician Urgent Consulting Provider: Mane Roth Consult Reason/Comments: chest pain r/o Do you want consulting provider notified?: Yes [facility]: HISTORY OF PRESENT ILLNESS This is a 44-year-old female patient of Dr. Curtis with past medical history of diabetes mellitus type 2 and diabetic neuropathy, mild intermittent asthma, manic depression, gastroesophageal reflux disease, tobacco use and dependence, kidney stones, chronic back pain under pain management with Dr. Bennett, generalized anxiety disorder. 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 She states she first became cold and then broke into a sweat and had chest pain in the midsternal area. She states she still has it at this time. She denies any history of coronary artery disease and denies any history of coronary testing in the past. Her son-in-law brought her into the hospital for evaluation. Patient presented to [facility] emergency center for evaluation. Patient was afebrile, heart rate 110, blood pressure 139/78, pulse ox 98%. WBC 7.3, hemoglobin 16.3, platelet count 292. Sodium 133, potassium 4.7, chloride 102, CO2 17 BUN 20, creatinine 0.52, blood sugar 335. Liver function tests within normal limits lipase 167. Urinalysis cloudy, blood moderate, nitrate negative, leukoesterase trace, epithelial cells 7. Acetone negative. HCG not detected. EKG normal sinus rhythm with no acute changes. Patient was given Zofran, regular insulin, 2 L of IV fluid [facility] Patient is eating all of her meals, consistent carb diet, but feels "sick" after she eats. She remains afebrile and vital signs are stable. 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 05/31: Patient has been seen by cardiology and scheduled for dobutamine stress echo today. Echocardiogram reveals EF of 50-55% with mild concentric left ventricular hypertrophy, mild mitral regurgitation, mild tricuspid regurgitation. Patient has been afebrile, heart rate 69, blood pressure 115/74, pulse ox 90% on room air. Blood sugars are running between 143 and 296. Hemoglobin A1c 11. Discussed in detail with the patient the need to control blood sugars and improve A1c. Patient blames the [employer] company for not delivering her supplies. Patient has been instructed to follow-up with Dr. Curtis within the next week to discuss diabetes management. Echocardiogram was negative and patient was cleared for discharge home by cardiology. Patient will be discharged home today in stable condition. DISCHARGE DIAGNOSES 1. Chest pain, acute coronary syndrome ruled out. 2. Diabetes mellitus type 2 uncontrolled with hyperglycemia. A1c 11. 3. History of kidney stones, stable. 4. Chronic back pain, stable. 5. Bipolar disorder. 7. Tobacco use and dependence. DISCHARGE PLAN Home. Impression and plan of care have been directed as dictated by the signing physician. Elysia Duffy nurse practitioner acting as scribe for signing physician. Patient Condition at Discharge: Good Plan - Discharge Summary Discharge Rx Participant: No New Discharge Prescriptions: No Action Sertraline [Zoloft] 100 mg PO DAILY Pregabalin [Lyrica] 150 mg PO TID oxyCODONE-APAP 7.5-325MG [Percocet 7.5-325 mg] 1 tab PO TID PRN PRN Reason: Pain Naproxen 500 mg PO TID PRN PRN Reason: Pain Methocarbamol [Robaxin-750] 750 mg PO TID PRN PRN Reason: Muscle Pain Metoclopramide [Reglan] 5 mg PO AC-TID #90 tab Insulin Glargine,Hum.rec.anlog [Surendraagllynnette Maldonadoikpen U-100] 80 unit SQ HS Albuterol Inhaler [Ventolin Hfa Inhaler] 2 puff INHALATION RT-QID PRN PRN Reason: Shortness Of Breath Insulin Lispro [Admelog] See Protocol SQ AC-TID Discharge Medication List Methocarbamol [Robaxin-750] 750 mg PO TID PRN 07/04/19 [History] Naproxen 500 mg PO TID PRN 07/04/19 [History] Pregabalin [Lyrica] 150 mg PO TID 07/04/19 [History] Sertraline [Zoloft] 100 mg PO DAILY 07/04/19 [History] oxyCODONE-APAP 7.5-325MG [Percocet 7.5-325 mg] 1 tab PO TID PRN 07/04/19 [History] Metoclopramide [Reglan] 5 mg PO AC-TID #90 tab 07/06/19 [Rx] Albuterol Inhaler [Ventolin Hfa Inhaler] 2 puff INHALATION RT-QID PRN 05/30/20 [History] Insulin Glargine,Hum.rec.anlog [Basaglar Kwikpen U-100] 80 unit SQ HS 05/30/20 [History] Insulin Lispro [Admelog] See Protocol SQ AC-TID 05/30/20 [History] Follow up Appointment(s)/Referral(s): Mateus Curtis DO [Primary Care Provider] - 1 Week Activity/Diet/Wound Care/Special Instructions: Pt would like pneumonia and influenza vaccine prior to discharge. Discharge Disposition: HOME SELF-CARE
[2020-05-31] MEDS: PREGABALIN 75 MG CAP PO SCH (12:26)
[2020-05-31] MEDS: METOCLOPRAMIDE 5 MG TAB PO SCH ×2 (12:26→13:11)
[2020-05-31] MEDS: oxyCODONE-APAP 7.5-325MG 1 EACH TAB PO PRN (12:31)
--- NOTE | 2020-05-31 14:21 | ECHOS ---
STRESS ECHOCARDIOGRAM LUMASON: @@ Vial INDICATIONS: Chest pain. MEDICATIONS: BASELINE HEART RATE: 69 BASELINE BLOOD PRESSURE: 105/64 MAXIMUM HEART RATE: 162 MAXIMUM BLOOD PRESSURE: 193/99 85% MPHR: 148 100% MPHR: 174 METS: MAXIMUM STAGE REACHED: 30 mcg TOTAL EXERCISE TIME: 8:58 infusion time CLINICAL INFORMATION: Baseline EKG shows sinus rhythm, normal axis, normal intervals. Patient was given intravenous dobutamine over a period of 9 minutes as per protocol. Did not have chest pain or diagnostic ST-segment depression. Baseline echo showed normal left ventricular size, wall motion and systolic function. Post dobutamine infusion, there is normal hyperdynamic response of all segments of myocardium noted. Definity contrast was used to improve endocardial visualization. CONCLUSIONS: 1. Negative stress test by EKG criteria. 2. Negative dobutamine stress echo. MMODL / IJN: [id number] /
== END 2020-05-31 13:27 | disposition home or self-care (01) ==
LOC: EC 05:32 → 6NMEDSUR 07:01
PROVIDERS: ADMIT Internal Medicine Geriatric Medicine; ATTEND Internal Medicine Geriatric Medicine
DX: R07.89 Other chest pain (principal); R61 Generalized hyperhidrosis; E11.65 Type 2 diabetes mellitus with hyperglycemia; G89.29 Other chronic pain; M54.5 Low back pain; F31.9 Bipolar disorder, unspecified; E11.40 Type 2 diabetes mellitus with diabetic neuropathy, unspecified; J45.20 Mild intermittent asthma, uncomplicated; K21.9 Gastro-esophageal reflux disease without esophagitis; F43.10 Post-traumatic stress disorder, unspecified; F41.1 Generalized anxiety disorder; R06.02 Shortness of breath; F17.210 Nicotine dependence, cigarettes, uncomplicated; D72.829 Elevated white blood cell count, unspecified; E83.42 Hypomagnesemia; K58.9 Irritable bowel syndrome, unspecified; E66.01 Morbid (severe) obesity due to excess calories; Z68.35 Body mass index [BMI] 35.0-35.9, adult; Z87.442 Personal history of urinary calculi; Z87.01 Personal history of pneumonia (recurrent); Z87.09 Personal history of other diseases of the respiratory system; Z87.440 Personal history of urinary (tract) infections; Z79.891 Long term (current) use of opiate analgesic; Z79.4 Long term (current) use of insulin; Z79.1 Long term (current) use of non-steroidal anti-inflammatories (NSAID); Z79.899 Other long term (current) drug therapy; Z83.3 Family history of diabetes mellitus; Z82.49 Family history of ischemic heart disease and other diseases of the circulatory system; Z82.5 Family history of asthma and other chronic lower respiratory diseases; Z81.8 Family history of other mental and behavioral disorders; Z80.0 Family history of malignant neoplasm of digestive organs; Z83.79 Family history of other diseases of the digestive system; Z83.42 Family history of familial hypercholesterolemia; Z90.49 Acquired absence of other specified parts of digestive tract; Z88.1 Allergy status to other antibiotic agents; Z91.030 Bee allergy status; Z20.822 Contact with and (suspected) exposure to COVID-19
CPT/HCPCS: 36415; 71046; 80053; 80061; 81003; 83036; 83605; 83735; 84484; 85025; 85610; 85730; 87040; 87635; 93005; 93306; 93351; 94760; 96365; 96366; 96367; 96375; 99285

== ENCOUNTER → 2020-11-05 | Outpatient (CLI) | payer OTHER ==
[2020-11-05 10:12] VITALS: BP 110/69; PULSE 95; RESP 18; TEMP 98.5
--- NOTE | 2020-11-05 10:22 | P.PAINCN ---
History of Present Illness - Reason for Consult Consult date: 11/05/20 - History of Present Illness This is 44 years old female with a chronic history of severe low back pain, started more than 10 years ago, and also patient had neck pain and mid back pain, loss of her pain currently in the low back area with radiation to the buttocks bilaterally, she denies numbness or tingling sensation, he denies any weakness in her lower extremity, reporting that the pain intensity interfere with her quality of life, constant and increases with any activity, she tried physical therapy several years ago without any benefit, she tried medication Lyrica and naproxen and had she continued to have pain, she feels some weakness in her lower extremity, but she is able to ambulate freely, she denies any change in the bowel movement or urination she denies any fever or night sweats. Past Medical History Past Medical History: Asthma, Diabetes Mellitus, Pneumonia Additional Past Medical History / Comment(s): hx KIDNEY STONES, chronic back pain, hiatal hernia, frequent vomiting History of Any Multi-Drug Resistant Organisms: None Reported Past Surgical History: Cholecystectomy Additional Past Surgical History / Comment(s): cerclage procedure for incompetent cervix, EGD Past Anesthesia/Blood Transfusion Reactions: Motion Sickness, Postoperative Nausea & Vomiting (PONV) Additional Past Anesthesia/Blood Transfusion Reaction / Comm: severe PONV, Past Psychological History: Anxiety, Bipolar, Depression, PTSD Additional Psychological History / Comment(s): . Smoking Status: Current every day smoker Past Alcohol Use History: Rare Additional Past Alcohol Use History / Comment(s): Pt started smoking in 1994 and was a 2 ppd smoker, now smokes 1ppd Past Drug Use History: None Reported - Past Family History Mother Family Medical History: Congestive Heart Failure (CHF), Diabetes Mellitus, Hyperlipidemia, Hypertension Additional Family Medical History / Comment(s): Mother at age 79 from diabetes, occasions. KIDNEY FAILURE Father Family Medical History: Diabetes Mellitus Additional Family Medical History / Comment(s): Father at 89 from old age with history of diabetes. COLLAPSED LUNG Brother(s) Additional Family Medical History / Comment(s): Patient has a total of 5 brothers. One has passed with history of diabetes. A second brother does have diabetes and alive. Patient has 6 sisters and she does not know any other medical history. Patient has 3 children: 2 daughters and 1 son with no major medical problems. Medications and Allergies Home Medications Medication Instructions Recorded Confirmed Type Naproxen 500 mg PO TID PRN 07/04/19 10/31/20 History Pregabalin [Lyrica] 150 mg PO DAILY 07/04/19 10/31/20 History Sertraline [Zoloft] 100 mg PO DAILY 07/04/19 10/31/20 History Metoclopramide [Reglan] 5 mg PO AC-TID #90 tab 07/06/19 10/31/20 Rx Albuterol Inhaler [Ventolin Hfa 2 puff INHALATION RT-QID PRN 05/30/20 10/31/20 History Inhaler] Insulin Glargine,Hum.rec.anlog 80 unit SQ HS 05/30/20 10/31/20 History [Basaglar Kwikpen U-100] Insulin Lispro [Admelog] See Protocol SQ AC-TID 05/30/20 10/31/20 History Allergies Allergy/AdvReac Type Severity Reaction Status Date / Time bee venom protein (honey bee) Allergy Unknown Verified 10/31/20 15:46 clarithromycin [From Biaxin] Allergy Unknown Verified 10/31/20 15:46 MACULIDE Allergy Unknown Uncoded 10/31/20 15:46 Physical Exam Vitals: Vital Signs Temp Pulse Resp BP Pulse Ox 11/05/20 10:02 98.5 F 95 18 110/69 94 L Physical Examinations : -Constitutiona : Cooperative , not in acute distress . -HEENT : nech : supple , no Lymphadenopathy , normal thyroid size . : eyes : no ptosis , no icterus, no photophobia . - neurologic : Cranial nerve II to XII intact , no focal neurological deffecit . -psychatric : alert , oriented X 3 , appropriate affect , intact judgment and insight . -Lymphatic : no Lymphadenopathy . - musculoskeltal : Cervical Spine motor stregnth in the deltoid and biceps, normal right side , normal Left side motor stregnth biceps and the wrist extensors normal right side ,normal left side . motor stregnth in the triceps muscle . normal Right side , normal Left side deep tendon reflexes normal at the biceps , normal at Brachioradialis , normal at triceps. cervical facet loading test: Positive Bilaterally Spurling test= positive Right , positive left. Neck distraction test= positive Right , positive left. Shayla sign= positive right, positive left . Lumber spine moter stegnth lower extremities ,thigh and legs 5/5 Right side , 5/5 Left side deep tendon reflexes : normal Knee Jerk , normal ankle Jerk lumber facet Loading Test =positive Right , positive Left Range of motion of the lumbar spine Flexion 30 degrees, extension 10 degrees strait leg raising test = negative bilaterally Fabere test= negative bilaterally . Sever tenderness over the Sacroiliac joint on the Right side. Gaenslen test= positive right . Seated flexion test= positive right . Distraction test= positive right Sacroiliac compression test= positive right Results Comments: MRI of the lumbar spine= multilevel lumbar facet arthropathy and multilevel lumbar degenerative disc disease. Assessment and Plan Plan: Assessment and plan=1-lumbar spondylosis with lumbar facet arthropathy without myelopathy. 2-lumbar degenerative disc disease. 3-right sacroiliitis. Patient will be good candidate to have diagnostic medial branch block lumbar area at L3, L4, L5 bilaterally and possible RFA Time with Patient: Greater than 30 PQRS Measure Charge Sheet Measure #130: Documentation of Current Meds in Medical Chart: Patient's medications documented in chart Measure #226: Tobacco Use: Screen & Cessation Intervention: Pt screened for tobacco use AND intervention given Measure #111: Pneumonia Vaccination: Pneumococcal vaccine NOT administered or previously given Measure #47: Advance Care Plan: Advance care planning discussed & documented, pt chose/unable to give Measure #412: Opioid Treatment Agreement: No documentation of signed opioid treatment agreement Measure #408: Opioid Therapy Follow-up Evaluation: Patient had NO f/u eval minimum every 3 months during opioid therapy Measure #317: Preventitive Care & Scrn High Bld Press & F/U: Normal blood pressure, f/u not required Measure #128: Body Mass Index (BMI) Screening & Follow-up: BMI documented ABOVE normal parameters - f/u documented Measure #131: Pain Assessment & Follow-up: Pain positive & plan documented, Follow-up scheduled Measure #431: Unhealthy Alcohol Use Preventative Care & Scrn: Patient not identified as an unhealthy alcohol user PQRS Narrative: Smoking Status Current every day smoker Blood Pressure 110/69 Pain Intensity [Back] 8 Scale Used Numeric (1 - 10) Hx Alcohol Use (MH) No Home Medications: Ambulatory Orders Naproxen 500 mg PO TID PRN 07/04/19 Pregabalin [Lyrica] 150 mg PO DAILY 07/04/19 Sertraline [Zoloft] 100 mg PO DAILY 07/04/19 Metoclopramide [Reglan] 5 mg PO AC-TID #90 tab 07/06/19 Albuterol Inhaler [Ventolin Hfa Inhaler] 2 puff INHALATION RT-QID PRN 05/30/20 Insulin Glargine,Hum.rec.anlog [Petey Allen U-100] 80 unit SQ HS 05/30/20 Insulin Lispro [Admelog] See Protocol SQ AC-TID 05/30/20
== END | disposition home or self-care (01) ==
LOC: PNWHC3 09:39
PROVIDERS: ATTEND Specialist
DX: M51.36 Other intervertebral disc degeneration, lumbar region (principal); M47.9 Spondylosis, unspecified; M47.896 Other spondylosis, lumbar region; M46.1 Sacroiliitis, not elsewhere classified; F17.210 Nicotine dependence, cigarettes, uncomplicated
CPT/HCPCS: 99211

== ENCOUNTER 2021-04-12 18:21 | Emergency (ER) | payer OTHER ==
[2021-04-12 18:35] VITALS: BP 141/88; PULSE 79; RESP 20; TEMP 98.1
--- NOTE | 2021-04-12 19:52 | ED ---
General Adult HPI - General Chief complaint: Urogenital Stated complaint: Vaginal protrusion Time Seen by Provider: 04/12/21 19:40 Source: patient, RN notes reviewed, old records reviewed Mode of arrival: ambulatory Limitations: no limitations - History of Present Illness Initial comments: Well-appearing 45-year-old female presents to the emergency room with complaints of possible uterine prolapse that she noticed today. Patient states she went to the bathroom when she felt something hanging out of her vagina. She was able to push it back in. She states there is no blood and there is no pain. She did call her primary care doctor who told her to come to the emergency room because there is nothing he could do. Patient does have a history of diabetes, bipolar, anxiety, PTSD, incompetent cervix, chronic back pain and is a smoker. -: days(s) (1) Location: genitals (vaginal prolapse) Severity scale (1-10): 4 Quality: aching Consistency: constant Improves with: none Worsens with: none Associated Symptoms: denies other symptoms Treatments Prior to Arrival: none - Related Data Home Medications Medication Instructions Recorded Confirmed Naproxen 500 mg PO BID PRN 07/04/19 12/04/20 Insulin Glargine,Hum.rec.anlog 80 unit SQ HS 05/30/20 12/04/20 [Basaglar Kwikpen U-100] Albuterol Sulfate [Proair Hfa] 2 puff INHALATION RT-QID PRN 12/04/20 12/04/20 INSULIN LISPRO (HumaLOG) [humaLOG] See Protocol SQ ACHS 12/04/20 12/04/20 Metoclopramide [Reglan] 5 mg PO TID PRN 12/04/20 12/04/20 Previous Rx's Medication Instructions Recorded EPINEPHrine (Auto Inject) [Epipen] 0.3 mg IM ONCE PRN #2 each 12/04/20 Loratadine [Claritin] 10 mg PO DAILY #20 tab 12/04/20 predniSONE [Deltasone] 20 mg PO BID #10 tab 12/04/20 Allergies Allergy/AdvReac Type Severity Reaction Status Date / Time bee venom protein (honey bee) Allergy Anaphylaxis Verified 04/12/21 18:35 clarithromycin [From Biaxin] Allergy Swelling/Na Verified 04/12/21 18:35 usea MACULIDE Allergy Unknown Uncoded 04/12/21 18:35 Review of Systems ROS Statement: Those systems with pertinent positive or pertinent negative responses have been documented in the HPI. ROS Other: All systems not noted in ROS Statement are negative. Past Medical History Past Medical History: Diabetes Mellitus, Pneumonia Additional Past Medical History / Comment(s): BRONCHITIS, KIDNEY STONES, chronic back pain, probable hiatal hernia, frequent vomiting for >year History of Any Multi-Drug Resistant Organisms: None Reported Past Surgical History: Cholecystectomy Additional Past Surgical History / Comment(s): cerclage procedure for incompetent cervix Past Anesthesia/Blood Transfusion Reactions: Motion Sickness, Postoperative Nausea & Vomiting (PONV) Additional Past Anesthesia/Blood Transfusion Reaction / Comment(s): severe PONV, Past Psychological History: Anxiety, Bipolar, Depression, PTSD Smoking Status: Current every day smoker Past Alcohol Use History: Rare Past Drug Use History: None Reported - Past Family History Mother Family Medical History: Congestive Heart Failure (CHF), Diabetes Mellitus, Hyperlipidemia, Hypertension Additional Family Medical History / Comment(s): Mother at age 79 from lidya ashley, occasions. KIDNEY FAILURE Father Family Medical History: Diabetes Mellitus Additional Family Medical History / Comment(s): Father at 89 from old age with history of diabetes. COLLAPSED LUNG Brother(s) Additional Family Medical History / Comment(s): Patient has a total of 5 brothers. One has passed with history of diabetes. A second brother does have diabetes and alive. Patient has 6 sisters and she does not know any other medical history. Patient has 3 children: 2 daughters and 1 son with no major medical problems. General Exam Limitations: no limitations General appearance: alert, in no apparent distress Eye exam: Present: normal appearance Neck exam: Present: full ROM. Absent: meningismus Respiratory exam: Present: wheezes (Occasional wheezes right base clears with cough). Absent: respiratory distress, rhonchi, stridor, chest wall tenderness, accessory muscle use Cardiovascular Exam: Present: regular rate, normal rhythm, normal heart sounds. Absent: systolic murmur, diastolic murmur, rubs, gallop, clicks GI/Abdominal exam: Present: soft. Absent: distended, tenderness External exam: Present: normal external exam. Absent: erythema, swelling, lesions, lacerations, ecchymosis By manual exam: Present: other (Uterine prolapse easily reduced) Neurological exam: Present: alert, oriented X3 Psychiatric exam: Present: normal affect, normal mood Skin exam: Present: warm, dry, intact, normal color. Absent: rash Course Vital Signs 04/12/21 18:33 Temperature 98.1 F Pulse Rate 79 Respiratory 20 Rate Blood Pressure 141/88 O2 Sat by Pulse 98 Oximetry Medical Decision Making - Medical Decision Making 45-year-old female, in no acute distress presents to the emergency room with complaints of possible uterine prolapse that she noticed today. She was able to push it back in, states there is no bleeding or pain. She describes it as a fullness. Patient is a with one stillborn and one miscarriage. History of diabetes, bipolar, anxiety, PTSD, incompetent cervix, chronic back pain and is a smoker. Upon exam there is no evidence of erythema or abscess. There is an organ protrusion within the vaginal vault that was easily reduced. Patient has no abdominal pain, vaginal bleeding or vaginal discharge. She'll be referred to [facility] for continuation of care. Case discussed with Dr. Branch. Disposition Clinical Impression: Uterine prolapse Disposition: HOME SELF-CARE Condition: Good Instructions (If sedation given, give patient instructions): Uterine Prolapse (ED) Additional Instructions: Follow-up with gynecology next week. Return to the emergency room with any new, worsening or concerning symptoms. Is patient prescribed a controlled substance at d/c from ED?: No Referrals: Mateus Curtis DO [Primary Care Provider] - 1-2 days Aye Augustin MD [STAFF PHYSICIAN] - 1-2 days Time of Disposition: 20:11
== END 2021-04-12 20:52 | disposition home or self-care (01) ==
LOC: EC 18:21
DX: N81.4 Uterovaginal prolapse, unspecified (principal); E11.9 Type 2 diabetes mellitus without complications; F17.200 Nicotine dependence, unspecified, uncomplicated; F43.10 Post-traumatic stress disorder, unspecified; F41.9 Anxiety disorder, unspecified; F31.9 Bipolar disorder, unspecified; Z72.89 Other problems related to lifestyle; Z79.4 Long term (current) use of insulin
CPT/HCPCS: 99284